=== PATIENT | male | born 1955 | race Caucasian/White ===

== ENCOUNTER 2024-09-25 18:01 | Inpatient (IN) | payer MEDICARE, SELFPAY ==
[2024-09-25] VITALS (17 sets, daily range): BP systolic 103–149; BP diastolic 45–76; PULSE 71–101; RESP 14–24; TEMP 36.6; O2SAT 89–97; BMI 18.2
--- NOTE | 2024-09-25 18:16 | CTR_ITS ---
PROCEDURE INFORMATION: Exam: CT Abdomen And Pelvis With Contrast Exam date and time: 09/25/2024 7:14 PM Age: 69 years old Clinical indication: Nausea and vomiting; Prior surgery; Surgery date: 6+ months; Surgery type: Colon x2 CA; Additional info: Nausea/vomiting, liver disease TECHNIQUE: Imaging protocol: Computed tomography of the abdomen and pelvis with contrast. Radiation optimization: All CT scans at this facility use at least one of these dose optimization techniques: automated exposure control; mA and/or kV adjustment per patient size (includes targeted exams where dose is matched to clinical indication); or iterative reconstruction. Contrast material: OMNIPAQUE 350; Contrast volume: 100 ml; Contrast route: INTRAVENOUS (IV); COMPARISON: CR (CHEST, ) 09/25/2024 6:18 PM RADIATION DOSE METRICS: Total DLP (mGy-cm): 1252.99 FINDINGS: Lungs: Consolidative airspace disease present in the left lower lobe. Patchy alveolar opacities present in the right lung base. Liver: The liver demonstrates capsular nodularity with hypertrophy of the caudate lobe. No definitive liver mass. Gallbladder and biliary ducts: The gallbladder is surgically absent. No intrahepatic biliary ductal dilatation. Pancreas: Normal. No ductal dilation. Spleen: The spleen is enlarged measuring 16 cm in length. Adrenal glands: Normal. No mass. Kidneys and ureters: Normal. No hydronephrosis. Stomach and bowel: Postsurgical changes from a subtotal colectomy. There are few scattered colon diverticula. There are multiple mildly dilated loops of small bowel without transition point. Appendix: No evidence of appendicitis. Intraperitoneal space: Unremarkable. No free air. No significant fluid collection. Vasculature: Splenorenal varices present. Scattered calcific plaque involves the abdominal aorta and iliac arteries. Lymph nodes: Unremarkable. No enlarged lymph nodes. Urinary bladder: Unremarkable as visualized. Reproductive: Radiation seeds present within the prostate. Bones/joints: Multilevel degenerative changes involve the spine. Soft tissues: Postsurgical changes from ventral hernia repair noted. Other findings: Image quality degraded by motion artifact. CT/CT abdomen pelvis w con* [id number] IMPRESSION: 1. There are multiple dilated loops of small bowel without transition point most compatible with an ileus/enteritis. 2. Hepatic cirrhosis with portal venous hypertension including splenomegaly and varices. 3. Bibasilar airspace disease concerning for pneumonia.
--- NOTE | 2024-09-25 18:16 | XRR_ITS ---
PROCEDURE INFORMATION: Exam: XR Chest Exam date and time: 09/25/2024 6:18 PM Age: 69 years old Clinical indication: Other: N/v; Additional info: Nausea/vomiting TECHNIQUE: Imaging protocol: Radiologic exam of the chest. Views: 1 view. COMPARISON: No relevant prior studies available. FINDINGS: Lungs: Unremarkable. No consolidation. Pleural spaces: Unremarkable. No pleural effusion. No pneumothorax. Heart/Mediastinum: Unremarkable. No cardiomegaly. Bones/joints: Unremarkable. XR/XR chest 1V portable [id number] IMPRESSION: No acute findings.
--- NOTE | 2024-09-25 18:19 | ED_ITS ---
HPI - Abdominal Pain 2 General: Chief Complaint: Nausea/Vomiting/Diarrhea Stated Complaint: vomitting Time Seen by Provider: 09/25/24 18:05 Source: patient and family Mode of arrival: wheelchair Limitations: no limitations History of Present Illness: Patient is a 69-year-old male with past medical history of diabetes and liver disease who presents to the emergency department with family due to sudden onset vomiting and diarrhea this morning. [id number] is primary historian at my time of examination, states that patient has a history of nonalcoholic liver cirrhosis as well as 2 different types of cancer, patient has gotten this way in the past and his ammonia has subsequently been elevated and he has required admission to the hospital. Family states that last time he was like this patient was in the hospital for 2 weeks. He has not been confused as he has been in the past, but has been falling. Normally he is ambulatory without assistance, arrives in a wheelchair as he is unable to walk. No reported cardiac history. No fevers, family states patient is at baseline mentation at this time. Patient had not been noting any abdominal pain, and there was no reports of coffee-ground emesis or hematemesis. No reported history of esophageal varices or variceal bleeding. No reports of chest pain, shortness of breath, head injury, sick contact exposure, coughing, or other symptoms at this time. Patient is alert and oriented to self and place, not to time which reportedly is baseline. MD elicited complaint: other (Nausea/vomiting/diarrhea) Pertinent past history: other (Liver cirrhosis, cancer) Onset (ago): hour(s) Pain Consistency: constant Exacerbating factors: nothing Relieving factors: nothing Associated Symptoms: Reports diarrhea, nausea and vomiting; Denies change in stool character, chills, coffee ground emesis, constipation, dysuria, fever(s), hematochezia, hematuria and hematemesis Review of Systems 2 General: Reports: 10 or more systems reviewed and unremarkable except in HPI and below Const: Denies: fever(s), chills, body aches or fatigue ENMT: Denies: throat pain Card: Denies: chest pain, palpitations or lightheadedness Resp: Denies: dyspnea, productive cough, wheezing or hemoptysis GI: Reports: nausea, vomiting and diarrhea; Denies: abdominal pain, hematemesis, coffee ground emesis, constipation, change in stool character or hematochezia : Denies: difficulty urinating, dysuria or hematuria Musc: Denies: neck pain or back pain Skin/Breast: Denies: rash Neuro: Reports: difficulty walking and frequent falls; Denies: headache(s), dizziness, confusion, behavioral changes, Slurred speech present or seizure-like activity Physical Exam 2 Const: COMMON NORMALS: no acute distress GENERAL APPEARANCE: cooperative ORIENTATION/CONSCIOUSNESS: Yes awake, Yes oriented to person and Yes oriented to place; not oriented to time OTHER: No jaundice HENMT: COMMON NORMALS: normocephalic, atraumatic, moist oral mucous membranes and oropharynx normal HEAD & SCALP: normocephalic and atraumatic Eye: COMMON NORMALS: Equal, round and reactive pupils present, EOMs intact bilaterally, conjunctivae normal and no scleral icterus CONJUNCTIVA: Yes conjunctivae normal PUPIL: Yes Equal, round and reactive pupils present Neck/C-Spine: COMMON NORMALS: full ROM and no meningeal signs Resp: COMMON NORMALS: normal respiratory effort, No retractions, No use of accessory muscles and clear to auscultation bilaterally EFFORT & INSPECTION: Yes able to speak in complete sentences AUSCULTATION: clear to auscultation bilaterally Cardio: COMMON NORMALS: regular rate, regular rhythm, No gallops present (Cardio), No murmurs present (Cardio), No rub (Cardio) and Peripheral pulses 2+ throughout RATE: regular rate RHYTHM: regular rhythm PERIPHERAL PULSES: Peripheral pulses 2+ throughout GI: COMMON NORMALS: non-tender INSPECTION: Yes central obesity A USCULTATION: Yes Hyperactive bowel sounds present OTHER: Midline postoperative scar from previous colectomy Extremity: COMMON NORMALS: full ROM, capillary refill normal and no joint enlargement NARRATIVE EXTREMITY EXAM: Chronic venous stasis changes bilaterally, no pedal edema. Wound to left great toe, acute Neuro: COMMON NORMALS: moves all extremities, no focal motor deficits and no sensory deficits noted SENSORIUM/ORIENTATION: Yes oriented to person, Yes oriented to place and No oriented to time MENINGEAL SIGNS: Yes no meningeal signs Course 2 Vital Signs: Vital signs: Vital Signs Temperature 97.8 F 09/25/24 18:05 Pulse Rate 71 09/25/24 18:05 MDM - Abdominal Pain Medical Decision Making Patient brought in by family for vomiting and diarrhea, family had stated history of hepatic encephalopathy requiring lengthy admission to the hospital as recent as last year. No jaundice or scleral icterus on exam, they reported history of nonalcoholic liver cirrhosis as well as colon cancer. Patient reported to be at baseline mentation, does not use oxygen at home regularly. Does have a history of diabetes. No fevers were reported. Head CT was normal. X-ray unremarkable. CT of abdomen pelvis showing signs of enteritis and potential signs of pneumonia. His SpO2 steadily dropped throughout ED stay, he was unable to maintain above 90% despite being on 6 L of oxygen, so was placed on BiPAP. His ammonia was normal, CBC unremarkable. PT PTT were normal. Lactic acid 2.5, was given a liter of fluids. Troponin initially was 20. He did have a history of DVT per family, is on blood thinners. Due to his hypoxia, spoke with hospitalist who agrees to accept the patient to the ICU on BiPAP. Discussed case with Dr. Tirado here in the ED. Lab Data 09/25/24 18:37 09/25/24 18:37 Labs/Radiology: Radiology Impressions Abdomen/Pelvis CT 09/25/24 18:16 IMPRESSION: 1. There are multiple dilated loops of small bowel without transition point most compatible with an ileus/enteritis. 2. Hepatic cirrhosis with portal venous hypertension including splenomegaly and varices. 3. Bibasilar airspace disease concerning for pneumonia. Chest X-Ray 09/25/24 18:16 IMPRESSION: No acute findings. Head CT 09/25/24 18:42 IMPRESSION: No acute intracranial abnormality. Laboratory Results WBC 7.79 10^3/uL (3.29-11.43) 09/25/24 18:37 RBC 4.59 10^6/uL (3.85-5.65) 09/25/24 18:37 Hgb 15.30 g/dL (11.27-16.99) 09/25/24 18:37 Hct 44.5 % (37-53) 09/25/24 18:37 MCV 96.9 fl (82-101) 09/25/24 18:37 MCH 33.3 pg (27-33) H 09/25/24 18:37 MCHC 34.4 g/dL (30-55) 09/25/24 18:37 RDW 14.7 % (12.1-15.1) 09/25/24 18:37 Plt Count 49 10^3/cmm (157-399) L 09/25/24 18:37 MPV 11.5 fL (7.4-10.4) H 09/25/24 18:37 Neut % (Auto) 85.8 % 09/25/24 18:37 Lymph % (Auto) 9.1 % 09/25/24 18:37 [place] % (Auto) 4.7 % 09/25/24 18:37 Eos % (Auto) 0.0 % 09/25/24 18:37 Baso % (Auto) 0.1 % 09/25/24 18:37 Neut # (Auto) 6.68 10^3/uL (1.8-7.7) 09/25/24 18:37 Lymph # (Auto) 0.7 10^3/uL (0.8-4.8) L 09/25/24 18:37 [place] # (Auto) 0.4 10^3/uL (0.2-0.9) 09/25/24 18:37 Eos # (Auto) 0.0 10^3/uL (0.0-0.8) 09/25/24 18:37 Baso # (Auto) 0.0 10^3/uL (0.0-0.1) 09/25/24 18:37 Nucleated RBC % (auto) 0 % 09/25/24 18:37 Nucleated RBCs # 0.0 /100WBC 09/25/24 18:37 PT 16.00 SECONDS (12.1-14.9) H 09/25/24 18:37 INR 1.20 (0.8-1.2) 09/25/24 18:37 APTT 34.4 SECONDS (23.9-36.7) 09/25/24 18:37 Sodium 141 mmol/L (136-145) 09/25/24 18:37 Potassium 4.4 mmol/L (3.5-5.1) 09/25/24 18:37 Chloride 102 mmol/L (98-107) 09/25/24 18:37 Carbon Dioxide 25 mmol/L (22-29) 09/25/24 18:37 Anion Gap 18.4 (5-19) 09/25/24 18:37 BUN 31 mg/dL (8-23) H 09/25/24 18:37 Creatinine 1.1 mg/dL (0.7-1.2) 09/25/24 18:37 GFR Calculation Not Reportable 09/25/24 18:37 Glucose 172 mg/dL (65-115) H 09/25/24 18:37 Calculated Osmolality 303 mOsm/kg (285-295) H 09/25/24 18:37 Lactic Acid 2.5 mmol/L (0.5-2.2) H 09/25/24 18:37 Calcium 10.2 mg/dL (8.5-10.5) 09/25/24 18:37 Total Bilirubin 4.5 mg/dL (0.15-1.2) H 09/25/24 18:37 AST 35 U/L (0-40) 09/25/24 18:37 ALT 19 U/L (0-41) 09/25/24 18:37 Alkaline Phosphatase 108 U/L (40-130) 09/25/24 18:37 Ammonia 48 umol/L (16-60) 09/25/24 18:37 Troponin T Baseline 20 ng/L (0-15) H 09/25/24 18:37 Total Protein 6.8 g/dL (6.6-8.7) 09/25/24 18:37 Albumin 4.4 g/dL (3.5-5.2) 09/25/24 18:37 Globulin 2.4 g/dL (1.3-4.6) 09/25/24 18:37 Lipase 22 U/L (13-60) 09/25/24 18:37 Coronavirus (PCR) Negative (Negative) 09/25/24 19:41 Influenza A (PCR) Negative (Negative) 09/25/24 19:41 Influenza Type B (PCR) Negative (Negative) 09/25/24 19:41 RSV (PCR) Negative (Negative) 09/25/24 19:41 All radiology interpretation(s) finalized by discharge EKG Data EKG 1: I personally reviewed and interpreted this EKG as follows: EKG interpretation date: 09/25/24 EKG interpretation time: 18:30 Prior EKG tracings: available for review Interpretation: 1830: NSR. Rate 69. First degree AV block. No STEMI. No previous for comparison. Reviewed with physician. Discharge Plan Discharge Patient Disposition: Admitted As Inpatient Clinical Impression: Hypoxia, Pneumonia, Enteritis Condition: Stable Coding Level of Care Code ED [employer] [facility]
--- NOTE | 2024-09-25 18:30 | ECG_ITS ---
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 Measurements Intervals [place] Rate: 69 P: 56 RI: 225 QRS: 71 QRSD: 91 T: 26 QT: 393 QTc: 422 Interpretive Statements SINUS RHYTHM WITH FIRST DEGREE AV BLOCK NONSPECIFIC ST & T-WAVE ABNORMALITY No previous ECG available for comparison Electronically Signed On 09-29-2024 23:17:22 [employer] by Diego Ingram M.D. [id number]
--- NOTE | 2024-09-25 18:42 | CTR_ITS ---
PROCEDURE INFORMATION: Exam: CT Head Without Contrast Exam date and time: 09/25/2024 7:09 PM Age: 69 years old Clinical indication: Weakness, extremity; Bilateral; Additional info: AMS TECHNIQUE: Imaging protocol: Computed tomography of the head without contrast. Radiation optimization: All CT scans at this facility use at least one of these dose optimization techniques: automated exposure control; mA and/or kV adjustment per patient size (includes targeted exams where dose is matched to clinical indication); or iterative reconstruction. COMPARISON: No relevant prior studies available. RADIATION DOSE METRICS: Total DLP (mGy-cm): 2554.09 FINDINGS: Brain: Periventricular white matter changes likely related to chronic ischemic small vessel disease. No intracranial mass, hemorrhage or recent infarct. Brain atrophy present. No midline shift or mass effect. Cerebral ventricles: No ventriculomegaly. Paranasal sinuses: Visualized sinuses are unremarkable. No fluid levels. Mastoid air cells: Visualized mastoid air cells are well aerated. Bones: Unremarkable. No acute fracture. Soft tissues: Unremarkable. CT/CT head wo con* [id number] IMPRESSION: No acute intracranial abnormality.
[2024-09-25 18:45] LABS: Basophils % 0.1 %; Hematocrit 44.5 % (37-53); Lymphocytes # 0.7 10^3/uL (0.8-4.8); Lymphocytes % 9.1 %; Mean Corpuscular HGB Conc 34.4 g/dL (30-55); Mean Corpuscular Hemoglobin 33.3 pg (27-33); Mean Corpuscular Volume 96.9 fl (82-101); Mean Platelet Volume 11.5 fL (7.4-10.4); Monocytes # 0.4 10^3/uL (0.2-0.9); Monocytes % 4.7 %; Neutrophils # 6.68 10^3/uL (1.8-7.7); Neutrophils % 85.8 %; Nucleated Red Blood Cells % 0 %; Platelet Count 49 10^3/cmm (157-399); Red Blood Count 4.59 10^6/uL (3.85-5.65); Red Cell Distribution Width 14.7 % (12.1-15.1); White Blood Count 7.79 10^3/uL (3.29-11.43)
[2024-09-25] MEDS: ondansetron 2 mg/ML SDV 2 mL 4 MG IVP (18:46)
[2024-09-25 18:58] LABS: Partial Thromboplastin Time 34.4 SECONDS (23.9-36.7)
[2024-09-25 19:00] LABS: Troponin(5th) Baseline 20 ng/L (0-15)
[2024-09-25 19:02] LABS: Alanine Aminotransferase 19 U/L (0-41); Albumin Level 4.4 g/dL (3.5-5.2); Alkaline Phosphatase 108 U/L (40-130); Anion Gap 18.4 (5-19); Aspartate Amino Transferase 35 U/L (0-40); Blood Urea Nitrogen 31 mg/dL (8-23); Calcium 10.2 mg/dL (8.5-10.5); Carbon Dioxide 25 mmol/L (22-29); Chloride 102 mmol/L (98-107); Creatinine Clr Calc Pharmacy 59.2764; Globulin 2.4 g/dL (1.3-4.6); Glucose 172 mg/dL (65-115); Lactic Sepsis W/Reflex 2.5 mmol/L (0.5-2.2); Lipase 22 U/L (13-60); Osmolality Calculated 303 mOsm/kg (285-295); Potassium 4.4 mmol/L (3.5-5.1); Sodium 141 mmol/L (136-145); Total Bilirubin 4.5 mg/dL (0.15-1.2); Total Protein 6.8 g/dL (6.6-8.7)
[2024-09-25 19:05] LABS: Ammonia 48 umol/L (16-60)
[2024-09-25] MEDS: iohexol 350 mg/mL 500 mL Btl (per mL) IV (19:19)
[2024-09-25] MEDS: sodium chloride 0.9% 1,000 ML 999 ML IV (19:43)
--- NOTE | 2024-09-25 20:17 | ECG_ITS ---
[facility] Test Date: 2024-09-25 Pat Name: Jeremy Melgar Department: Room: Gender: Male Director Of Diversity And Inclusion: : 1955 Requested By: Rogelio Salcido Order Number: [id number] Adithya MD: Diego Ingram M.D. Measurements Intervals [place] Rate: 94 P: 87 PA: 222 QRS: 91 QRSD: 100 T: 65 QT: 342 QTc: 429 Interpretive Statements SINUS RHYTHM WITH FIRST DEGREE AV BLOCK BORDERLINE RIGHT AXIS DEVIATION [QRS AXIS > 90] Compared to ECG 09/25/2024 18:30:40 T-wave abnormality no longer present Electronically Signed On 09-29-2024 23:35:48 [employer]OTH L[employer]INATING SUPERVISOR by Diego Ingram M.D. [id number]
[2024-09-25 20:28] LABS: Reflex Lactate Order REFLEX LACTIC ORDERD
[2024-09-25 20:30] LABS: Covid PCR NEGATIVE (Negative); Influenza A NEGATIVE (Negative); Influenza B NEGATIVE (Negative); Respiratory Syncytial Virus Ce NEGATIVE (Negative)
--- NOTE | 2024-09-25 20:55 | P.HP_ITS ---
Providers/Chief Complaint 2 Chief Complaint: vomitting History of Present Illness History was obtained primarily from ED signout and chart review b/c the patient was confused Jeremy Melgar is a 69 yo man w/ colon cancer, hx of 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 hepatic encephalopathy who was brought to the ED on 09/25/2024 by his son and [id number] for 1 day of intractable nausea vomiting, diarrhea. Per ED signout, the patient's family members brought the patient to the ED, because he had a similar presentation of persistent vomiting approximately a few months ago, and he became hospitalized at [facility] in [place], [place] for hepatic encephalopathy. According to the ED staff signout, when the patient arrived in the ED, his vital signs were within normal limits. He subsequently developed tachycardia of 101bpm, tachypnea to 24 and became hypoxic to the 87% such that he was requiring 6L NC. His labs were significant for lactic acid of 2.5, T. bili of 4.5, but AST, ALT and alk phos that were all within normal limits. CT head was done that was negative for any acute abnormalities. A CT abdomen/pelvis was done that showed concern for an ileus/enteritis, decompensated liver cirrhosis with portal venous hypertension, splenomegaly and varices, and bibasilar airspace disease concerning for pneumonia. A CXR was done that showed b/l R>L bibasilar airspace disease concerning for pneumonia. With persistent hypoxia, the patient was placed on BiPAP and admitted to the ICU. He is able to tell me his name at that he is at [facility]. When asked the month and year. He tells me that he believes that it is Sep 2022. He tells me that he came to the ED b/c he fell as a result of having an upset stomach. When queried further about his upset stomach, he is unable to tell me. After some time lapsed, he tells me that his son was able to help him get off the floor. He was given 1L NS bolus, 1g Ceftriaxone, Azithromycin, Review of Systems 2 General: Reports: ROS unobtainable due to mental status Medications/Allergies Home Medications Medication Instructions Recorded Confirmed Last Taken Type Lamisil 1 applic topical BID PRN fungal 09/26/24 09/26/24 Unknown History infection to feet apixaban 5 mg tablet (Eliquis) 5 mg PO BID 09/26/24 09/26/24 Unknown History furosemide 40 mg tablet 40 mg PO DAILY 09/26/24 09/26/24 Unknown History gabapentin 600 mg tablet 600 mg PO TID 09/26/24 09/26/24 Unknown History lactulose 10 gram/15 mL oral 15 ml PO BID 09/26/24 09/26/24 Unknown History solution metformin 500 mg tablet 500 mg PO BID 09/26/24 09/26/24 Unknown History multivitamin 1 tab PO DAILY 09/26/24 09/26/24 Unknown History nadolol 20 mg tablet 20 mg PO DAILY 09/26/24 09/26/24 Unknown History pantoprazole 40 mg tablet,delayed 40 mg PO BID 09/26/24 09/26/24 Unknown History release rifaximin 550 mg PO BID 09/26/24 09/26/24 Unknown History spironolactone 50 mg tablet 50 mg PO DAILY 09/26/24 09/26/24 Unknown History tamsulosin 0.4 mg capsule 0.4 mg PO DAILY 09/26/24 09/26/24 Unknown History trazodone 100 mg tablet 100 mg PO BEDTIME 09/26/24 09/26/24 Unknown History triamcinolone acetonide 0.1 % 1 applic topical TID PRN Itching 09/26/24 09/26/24 Unknown History topical cream zolpidem 10 mg tablet 10 mg PO BEDTIME PRN Sleep 09/26/24 09/26/24 Unknown History Allergies Allergy/AdvReac Type Severity Reaction Status Date / Time No Known Allergies Allergy Verified 09/25/24 22:09 Vitals/I&O/Wt Last Vital Signs Temp 97.8 F 09/25/24 18:05 Pulse 71 09/25/24 18:05 Weight last 48 hrs Weight 68.039 kg Physical Exam 2 Const: GENERAL APPEARANCE: cooperative and comfortable O RIENTATION/CONSCIOUSNESS: Yes awake, Yes oriented to person and Yes oriented to place; not oriented to time HENMT: HEAD & SCALP: normocephalic and atraumatic NOSE: Normal external nose present EXTERNAL EAR: Yes external ears normal MOUTH: Normal oral and palatal mucosa present THROAT: posterior oropharynx normal Eye: OTHER: PERRL, EOMI, normal conjunctiva b/l Neck/C-Spine: GENERAL: Yes normal visual inspection and Yes trachea midline THYROID: Thyroid normal CAROTIDS: No bruit CERVICAL SPINE: Yes cervical ROM normal Lymph: OTHER: No cervical or supraclavicular LAD. Resp: OTHER: Decreased breath sounds in the bibasilar lung bases. No wheezes, rhonchi. Cardio: OTHER: RRR, no m/r/g or clicks, 2+ radial & DP pulses. No carotid bruits appreciated. GI: OTHER: BS+, NT, ND, no guarding, no rigidity, no rebound tenderness, no hepatosplenomegaly. Extremity: GENERAL: No cyanosis, No deformity and No edema Neuro: STEPHAN COMA SCALE: document GCS findings [place] coma scale eye opening: Spontaneous [place] coma scale verbal response: Confused [place] coma scale motor response: Obey commands Stephan coma scale total score: 14 Psych: OTHER: Unable to assess given mental status. Skin: GENERAL SKIN EXAM: no rashes or lesions noted Data 09/25/24 18:37 09/25/24 18:37 A&P Assessment and plan (1) Severe sepsis: (2) Enteritis: (3) Pneumonia: Qualifiers: Laterality: bilateral Lung location: lower lobe of lung Pneumonia type: due to unspecified organism Qualified Code(s): J18.9 - Pneumonia, unspecified organism (4) Acute hypoxic respiratory failure: Plan Jeremy Melgar is a 69 yo man w/ colon cancer, hx of 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 hepatic encephalopathy who was brought to the ED on 09/25/2024 by his son and [id number] for 1 day of intractable nausea vomiting, diarrhea. # Acute hypoxic respiratory failure #Severe Sepsis: Likely due to his enteritis and bibasilar pneumonia - F/u BCx. Give 1L of NS at 100cc/hr. #Bibasilar pneumonia - Possibly due to Aspiration from emesis. - Started Zosyn and Azithromycin. - Consider swallow study #Intractable N/V diarrhea #Ileus/Enteritis - Antiemetics. - If further diarrhea, consider sending GI infectious work up #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 hepatic encephalopathy - Monitor Ammonia level #hx of colon cancer #non-IDDM2: Low-dose sliding scale insulin with meals ordered. Medium dose SSI ordered. #I do not know why he is on Apixaban. DVT ppx: Lovenox GI ppx: PPI Code Status: I don't know. His son is ACE, per ICU nurse. Attestations 2 Medical Necessity Statement*: Patient needs to remain hospitalized for greater than 2 midnights for his severe sepsis, bibasilar pneumonia, intractable nausea vomiting diarrhea, with concern for ileus/enteritis, in the setting of his decompensated liver cirrhosis. Patient is at high risk of if discharged prematurely. Diagnoses Severe sepsis A41.9; R65.20 Enteritis K52.9 Pneumonia J18.9 Laterality: bilateral Lung location: lower lobe of lung Pneumonia type: due to unspecified organism Acute hypoxic respiratory failure J96.01
--- NOTE | 2024-09-25 21:03 | XRR_ITS ---
PROCEDURE INFORMATION: Exam: XR Chest Exam date and time: 09/25/2024 9:14 PM Age: 69 years old Clinical indication: Shortness of breath; Additional info: SOB TECHNIQUE: Imaging protocol: Radiologic exam of the chest. Views: 1 view. COMPARISON: CR (CHEST, ) 09/25/2024 6:18 PM FINDINGS: Lungs: Patchy bibasilar airspace disease, right greater than left. Otherwise, the lungs are clear. Pleural spaces: Unremarkable. No pleural effusion. No pneumothorax. Heart/Mediastinum: Stable cardiomegaly. Bones/joints: Unremarkable. XR/XR chest 1V portable [id number] IMPRESSION: Patchy bibasilar airspace disease, right worse than left concerning for pneumonia.
[2024-09-25 21:14] LABS: ABG PCO2 34.9 mmHg (35-45); ABG PH Result 7.38 (7.35-7.45); Alveolar-Arterial Oxygen Gradi 31.3 mmHg (5-10); Arterial Blood Gas Hematocrit 47.2 % (42-52); Blood Gas Allen Test Pos; Blood Gas Sample Site Radial, left; Blood Gas Sample Type Arterial; HCO3 ABG 20.4 mmol/L (22-26); HGB O2 Sat 93.7 % (95-100); Ionized Calcium Level - ABG 1.2 mmol/L (1.1-1.4); Methemoglobin < 0.0 % (0.4-1.5); Oxygen Device BIPAP; Oxygen Saturation ABG 95.4; PO2 ABG 77.1 mmHg (80.0-100.0); PO2 FiO2 Ratio Arterial Blood 154; Potassium Level - ABG 4.3 mmol/L (3.5-5.0); Total Hemoglobin 15.4 g/dL (14-18)
[2024-09-25 21:21] LABS: Troponin 5 2HR 19.97 ng/L (0-15)
[2024-09-25 21:23] LABS: Troponin 5 2HR Delta -0.03 ABS# (0-10)
[2024-09-25 21:35] LABS: NT Pro B Type Natriuretic Pept 534 pg/mL (0-125)
[2024-09-25] MEDS: morphine 4 mg/mL SDV 1 mL 2 MG IVP (21:51)
[2024-09-25] MEDS: cefTRIAXone 1,000 mg SDV 1000 MG IVP (21:54)
[2024-09-25] MEDS: AZITHROMYCIN ADD-Vantage 500 MG in 0.9% NaCl ADD-Vantage 250 ML 250 MG IV (21:55)
[2024-09-25 22:09] LABS: Bilirubin Urine 1+ (Negative); Blood Urine Negative (Negative); Glucose Urine UA Negative (Normal); Ketones Urine Negative (Negative); Leukocyte Esterase Urine Trace (Negative); Nitrate Urine Negative (Negative); Protein Urine Negative (Negative); Urine Appearance Clear (CLEAR)
[2024-09-25 22:14] LABS: Add Urine Microscopic? YES; Bacteria Urine None Seen /hpf; Hyaline Casts Urine 14.06 /lpf; RBC Urine 0-2 /hpf (0-2); Squamous Epithelial Cell Urine 0-5 /hpf (0-5); WBC Urine 0-5 /hpf (0-5)
[2024-09-25 22:28] LABS: Specific Gravity, Urine 1.053 (1.005-1.030); UA Slide Review UA Slide Review Perf; Urine Color Dark Yellow (Yellow)
[2024-09-25 22:33] LABS: Lactic Acid level (Lactate) 2.7 mmol/L (0.5-2.2)
[2024-09-26] VITALS (209 sets, daily range): BP systolic 88–151; BP diastolic 41–98; PULSE 62–86; RESP 12–24; TEMP 36.6–38.1; O2SAT 67–95; BMI 27.0
--- NOTE | 2024-09-26 00:17 | ECG_ITS ---
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 Measurements Intervals [place] Rate: 71 P: 0 VT: 0 QRS: 58 QRSD: 96 T: 14 QT: 384 QTc: 418 Interpretive Statements SUPRAVENTRICULAR RHYTHM NONSPECIFIC T-WAVE ABNORMALITY Compared to ECG 09/25/2024 20:57:12 Supraventricular rhythm now present T-wave abnormality now present Sinus rhythm no longer present First degree AV block no longer present Electronically Signed On 09-29-2024 23:34:59 [employer] by Diego Ingram M.D. [id number]
[2024-09-26 00:59] LABS: Troponin 5 6HR 21.63 ng/L (0-15); Troponin 5 6HR Delta 1.63 ng/L (0-12)
[2024-09-26] MEDS: piperacillin-tazobactam 3.375 GM in sodium chloride 0.9% (plus) 50 ML IV ×3 (08:20→23:57)
[2024-09-26] MEDS: enoxaparin 40 mg/0.4 mL Syringe SUBCUT (08:20)
[2024-09-26] MEDS: pantoprazole 40 mg SDV IVP ×2 (08:20→21:41)
[2024-09-26] MEDS: sodium chloride 0.9% 1,000 ML 100 ML IV (08:22)
[2024-09-26] MEDS: gabapentin 300 mg Capsule 600 MG PO ×3 (09:24→21:38)
[2024-09-26] MEDS: tamsulosin 0.4 mg Capsule PO (09:24)
[2024-09-26] MEDS: lactulose oral liq 20 gm/30 mL UDC 10 GM PO ×2 (09:25→17:36)
[2024-09-26 10:43] LABS: Glucose Point of Care 245 mg/dL (70-110)
[2024-09-26 10:52] LABS: Basophils % 0.4 %; Eosinophils % 0.4 %; Hematocrit 39.4 % (37-53); Lymphocytes # 0.7 10^3/uL (0.8-4.8); Lymphocytes % 13.5 %; Mean Corpuscular HGB Conc 33.8 g/dL (30-55); Mean Corpuscular Hemoglobin 33.7 pg (27-33); Mean Corpuscular Volume 99.7 fl (82-101); Mean Platelet Volume 12.9 fL (7.4-10.4); Monocytes # 0.2 10^3/uL (0.2-0.9); Monocytes % 3.1 %; Neutrophils % 82.2 %; Nucleated Red Blood Cells % 0 %; Red Blood Count 3.95 10^6/uL (3.85-5.65); White Blood Count 5.47 10^3/uL (3.29-11.43)
[2024-09-26 10:54] LABS: INR 1.36 (0.8-1.2)
[2024-09-26 10:55] LABS: Partial Thromboplastin Time 41.9 SECONDS (23.9-36.7)
[2024-09-26 10:58] LABS: Alanine Aminotransferase 15 U/L (0-41); Albumin Level 3.7 g/dL (3.5-5.2); Alkaline Phosphatase 76 U/L (40-130); Anion Gap 17.9 (5-19); Aspartate Amino Transferase 28 U/L (0-40); Blood Urea Nitrogen 32 mg/dL (8-23); Calcium 8.9 mg/dL (8.5-10.5); Carbon Dioxide 20 mmol/L (22-29); Chloride 103 mmol/L (98-107); Creatinine Clr Calc Pharmacy 90.9075; Globulin 2.2 g/dL (1.3-4.6); Glucose 216 mg/dL (65-115); Magnesium 1.5 mg/dL (1.7-2.3); Osmolality Calculated 297 mOsm/kg (285-295); Phosphorus 2.7 mg/dL (2.5-4.5); Potassium 3.9 mmol/L (3.5-5.1); Sodium 137 mmol/L (136-145); Total Bilirubin 2.8 mg/dL (0.15-1.2); Total Protein 5.9 g/dL (6.6-8.7)
[2024-09-26 10:58] LABS: Ammonia 39 umol/L (16-60)
[2024-09-26 11:04] LABS: Lactate (Lactic Acid level) 4.2 mmol/L (0.5-2.2)
[2024-09-26 11:11] LABS: Platelet Count 29 10^3/cmm (157-399)
[2024-09-26 11:18] LABS: Slide Review Slide Review Perform
--- NOTE | 2024-09-26 11:38 | US_ITS ---
WS: [id number] Ultrasound abdomen limited INDICATION: Ascites TECHNIQUE: Ultrasound abdomen limited FINDINGS: Four-quadrant ultrasound. No significant ascites. US/US abdomen lmt fluid [id number] IMPRESSION: No significant ascites.
[2024-09-26 12:05] LABS: C Reactive Protein 69.9 mg/L (0.0-4.9)
[2024-09-26] MEDS: vancomycin 1,500 MG/300 ML PIGGYBACK 200 MG IV ×2 (12:52→12:53)
[2024-09-26] MEDS: insulin lispro 100 unit/1 mL SUBCUT ×2 (12:53→21:41)
--- NOTE | 2024-09-26 15:16 | P.PN_ITS ---
Subjective 2 Subjective: Patient was seen this morning, patient's son is at bedside he is alert to person, to place, not to time, son feels that his mentation overall has improved, but continues to have episodes of confusion, cannot recognize son at bedside knows his address, but does not remember the date or the time Vitals/I&O/Wt Last Vital Signs Temp 98.8 F 09/26/24 12:00 Pulse 73 09/26/24 14:15 Resp 18 09/26/24 14:15 BP 108/52 09/26/24 14:15 Pulse Ox 95 09/26/24 12:40 O2 Del Method Nasal Cannula 09/26/24 08:37 O2 Flow Rate 3.5 09/26/24 08:37 FiO2 40 09/26/24 02:47 09/26/24 09/26/24 09/26/24 06:59 14:59 22:59 Intake Total 250 / 1250 650 / 650 Balance 250 / 1250 650 / 650 Weight last 48 hrs Weight 103.5 kg Weight 68.039 kg Physical Exam 2 Const: COMMON NORMALS: no acute distress EXAM LIMITATIONS: altered mental status ORIENTATION/CONSCIOUSNESS: Yes awake, Yes oriented to person, Yes oriented to place and Yes confused; not oriented to time Neck/C-Spine: COMMON NORMALS: no JVD Resp: COMMON NORMALS: normal respiratory effort, No retractions, No use of accessory muscles and clear to auscultation bilaterally AUSCULTATION: clear to auscultation bilaterally Cardio: COMMON NORMALS: no JVD, regular rate, regular rhythm, S1 normal heart sound present and S2 normal heart sound present RATE: regular rate RHYTHM: regular rhythm HEART SOUNDS: S1 normal heart sound present and S2 normal heart sound present GI: COMMON NORMALS: Normal to inspection, nondistended, normoactive bowel sounds present and non-tender Extremity: COMMON NORMALS: no calf tenderness and no pedal edema Neuro: SENSORIUM/ORIENTATION: Yes oriented to person, Yes oriented to place and No oriented to time Urinary Catheter Management: Ramey: Cath Placed During This Visit: yes Urinary Catheter Date of Insertion: 09/26/24 Urinary Catheter Time of Insertion: 09:29 Sepsis: Is patient septic: Yes Focused sepsis exam performed: Yes F ocused sepsis exam: DP PT pulses palpable, cap refill greater than 2 seconds, no mottling Date exam was performed: 09/26/24 Time exam was performed: 09:00 Data 09/26/24 10:22 09/26/24 10:22 Micro: Microbiology 09/25/24 22:06 Blood Culture - Preliminary Blood SPECIMEN COLLECTED 09/25/24 22:00 Blood Culture - Preliminary Blood SPECIMEN COLLECTED A&P Assessment and plan (1) Severe sepsis: (2) Enteritis: (3) Pneumonia: Qualifiers: Laterality: bilateral Lung location: lower lobe of lung Pneumonia type: due to unspecified organism Qualified Code(s): J18.9 - Pneumonia, unspecified organism (4) Acute hypoxic respiratory failure: Laurent Melgar is a 69 yo man w/ colon cancer, 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 # Acute hypoxic respiratory failure -Secondary to pneumonia, highly suspicious for aspiration pneumonia -Requiring BiPAP, now on 6 L, Plan -Dysphagia level 6 diet mildly thickened -Aspiration precautions -Continue vancomycin, Zosyn, azithromycin -Monitor respiratory status closely -Sputum culture -Blood culture -Urine culture -Stool studies # Enteritis -Complaints of diarrhea -Had chronic diarrhea also after his colon surgery -Stool studies #Severe Sepsis: Bibasilar pneumonia, concerns for enteritis -Sepsis features met given lactic acidosis, respiratory failure, elevated CRP, Pro-Ernesto #Intractable N/V #Lactic acidosis #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 hepatic encephalopathy - Monitor Ammonia level # Thrombocytopenia -Avoid anticoagulant therapy -Monitor #hx of colon cancer #non-IDDM2: -Low-dose sliding scale insulin with meals ordered Apixaban,will need to do med rec DVT ppx: Apixaban GI ppx: PPI Code Status: full code Attestations 2 Medical Necessity Statement*: patient patient requires hospitalization for acute hypoxic respiratory failure, pneumonia, enteritis, sepsis Diagnoses Severe sepsis A41.9; R65.20 Enteritis K52.9 Pneumonia J18.9 Laterality: bilateral Lung location: lower lobe of lung Pneumonia type: due to unspecified organism Acute hypoxic respiratory failure J96.01
--- NOTE | 2024-09-26 15:52 | PC.OT ---
OT EVALUATION ORDERS RECEIVED. PATIENT SLEEPING VERY SOUNDLY. WILL ATTEMPT AGAIN TOMORROW.
[2024-09-26] MEDS: ipratropium-albuterol 3 mL Neb INHALATION ×2 (15:57→19:29)
[2024-09-26 17:29] LABS: Glucose Point of Care 119 mg/dL (70-110)
[2024-09-26] MEDS: budesonide 0.5 mg/2 mL Neb INHALATION (19:29)
[2024-09-26 20:32] LABS: Anion Gap 14.2 (5-19); Blood Urea Nitrogen 33 mg/dL (8-23); Calcium 8.5 mg/dL (8.5-10.5); Carbon Dioxide 22 mmol/L (22-29); Chloride 104 mmol/L (98-107); Creatinine Clr Calc Pharmacy 75.7563; Glucose 203 mg/dL (65-115); Osmolality Calculated 295 mOsm/kg (285-295); Potassium 4.2 mmol/L (3.5-5.1); Sodium 136 mmol/L (136-145)
[2024-09-26 20:55] LABS: Glucose Point of Care 197 mg/dL (70-110)
[2024-09-26] MEDS: trazodone 100 mg Tablet PO (21:40)
[2024-09-26] MEDS: AZITHROMYCIN ADD-Vantage 500 MG in 0.9% NaCl ADD-Vantage 250 ML 250 MG IV (21:51)
[2024-09-26] MEDS: vancomycin 1,750 MG/350 ML PIGGYBACK 175 MG IV (23:31)
[2024-09-27] VITALS (65 sets, daily range): BP systolic 91–176; BP diastolic 43–87; PULSE 56–105; RESP 13–27; TEMP 36.6–37.9; O2SAT 85–95; BMI 27.9
[2024-09-27] MEDS: ipratropium-albuterol 3 mL Neb INHALATION ×4 (01:01→20:58)
[2024-09-27 04:55] LABS: Alanine Aminotransferase 14 U/L (0-41); Albumin Level 3.1 g/dL (3.5-5.2); Alkaline Phosphatase 71 U/L (40-130); Anion Gap 15.8 (5-19); Aspartate Amino Transferase 31 U/L (0-40); Blood Urea Nitrogen 31 mg/dL (8-23); Calcium 8.5 mg/dL (8.5-10.5); Carbon Dioxide 18 mmol/L (22-29); Chloride 106 mmol/L (98-107); Creatinine Clr Calc Pharmacy 92.2492; Globulin 2.3 g/dL (1.3-4.6); Glucose 104 mg/dL (65-115); Magnesium 1.6 mg/dL (1.7-2.3); Osmolality Calculated 289 mOsm/kg (285-295); Phosphorus 2.2 mg/dL (2.5-4.5); Potassium 3.8 mmol/L (3.5-5.1); Sodium 136 mmol/L (136-145); Total Bilirubin 2.7 mg/dL (0.15-1.2); Total Protein 5.4 g/dL (6.6-8.7)
[2024-09-27 04:57] LABS: Ammonia 38 umol/L (16-60)
[2024-09-27 05:28] LABS: C Reactive Protein 104.1 mg/L (0.0-4.9)
[2024-09-27 05:40] LABS: Basophils % 0.4 %; Eosinophils # 0.1 10^3/uL (0.0-0.8); Eosinophils % 2.7 %; Lymphocytes # 0.6 10^3/uL (0.8-4.8); Lymphocytes % 21.7 %; Mean Corpuscular HGB Conc 33.6 g/dL (30-55); Mean Corpuscular Hemoglobin 34.4 pg (27-33); Mean Corpuscular Volume 102.2 fl (82-101); Mean Platelet Volume 11.9 fL (7.4-10.4); Monocytes # 0.2 10^3/uL (0.2-0.9); Monocytes % 5.7 %; Neutrophils % 68.4 %; Nucleated Red Blood Cells % 0 %; Platelet Count 34 10^3/cmm (157-399); Red Blood Count 3.23 10^6/uL (3.85-5.65); Red Cell Distribution Width 14.7 % (12.1-15.1); White Blood Count 2.63 10^3/uL (3.29-11.43)
[2024-09-27 06:08] LABS: Lactate (Lactic Acid level) 1.5 mmol/L (0.5-2.2)
--- NOTE | 2024-09-27 07:22 | PHA.VACGOAL ---
Vancomycin Goal - Goal Vancomycin Goal:: 15-20 mg/L Vancomycin Indication:: Pneumonia (Sepsis) - Therapy Current therapy:: Azithromycin, Pip/Tazo Day of therpy:: Day [2]of [] . Actual body weight (kg): 107 kg - Data Labs: WBC 2.63 10^3/uL (3.29-11.43) L 09/27/24 05:03 RBC 3.23 10^6/uL (3.85-5.65) L 09/27/24 05:03 Hgb 11.10 g/dL (11.27-16.99) L 09/27/24 05:03 Hct 33.0 % (37-53) L 09/27/24 05:03 MCV 102.2 fl (82-101) H 09/27/24 05:03 MCH 34.4 pg (27-33) H 09/27/24 05:03 MCHC 33.6 g/dL (30-55) 09/27/24 05:03 RDW 14.7 % (12.1-15.1) 09/27/24 05:03 Sodium 136 mmol/L (136-145) 09/27/24 04:21 Potassium 3.8 mmol/L (3.5-5.1) 09/27/24 04:21 Chloride 106 mmol/L (98-107) 09/27/24 04:21 Carbon Dioxide 18 mmol/L (22-29) L 09/27/24 04:21 Anion Gap 15.8 (5-19) 09/27/24 04:21 BUN 31 mg/dL (8-23) H 09/27/24 04:21 Creatinine 1.0 mg/dL (0.7-1.2) 09/27/24 04:21 GFR Calculation Not Reportable 09/27/24 04:21 Treatment plan:: new consult Regimen:: New start vancomycin for pneumonia/sepsis. No history of vancomycin found. Received 3000 mg load dose. Started on maintenance dose of 1750 mg q12h based on population based pharmacokinetic nomogram.
[2024-09-27] MEDS: piperacillin-tazobactam 3.375 GM in sodium chloride 0.9% (plus) 50 ML IV ×2 (07:38→16:44)
[2024-09-27] MEDS: pantoprazole 40 mg SDV IVP ×2 (07:38→21:44)
[2024-09-27 07:47] LABS: Glucose Point of Care 102 mg/dL (70-110)
[2024-09-27] MEDS: lactulose oral liq 20 gm/30 mL UDC 10 GM PO ×2 (07:57→17:40)
[2024-09-27] MEDS: tamsulosin 0.4 mg Capsule PO (07:58)
[2024-09-27] MEDS: gabapentin 300 mg Capsule 600 MG PO ×3 (07:58→21:54)
[2024-09-27] MEDS: budesonide 0.5 mg/2 mL Neb INHALATION ×2 (08:15→20:58)
--- NOTE | 2024-09-27 09:10 | PC.NURSE ---
son at bedside am breakfast served , good appetite confusion remains bed alarm on at this time
[2024-09-27 11:23] LABS: Glucose Point of Care 151 mg/dL (70-110)
[2024-09-27] MEDS: insulin lispro 100 unit/1 mL SUBCUT ×3 (11:59→21:44)
[2024-09-27] MEDS: vancomycin 1,750 MG/350 ML PIGGYBACK 300 MG IV (12:00)
[2024-09-27 12:03] LABS: C.Diff PCR (Lab) POSITIVE (Negative)
[2024-09-27] MEDS: vancomycin 125 mg Capsule PO ×2 (13:05→17:41)
--- NOTE | 2024-09-27 16:24 | P.PN_ITS ---
Subjective 2 Subjective: Patient was seen this morning, son is at bedside he is alert to person, to place, somewhat to time, he can follow commands denies any fevers, chills, no cough, no abdominal pain does report weakness Vitals/I&O/Wt Last Vital Signs Temp 97.8 F 09/27/24 14:00 Pulse 78 09/27/24 14:00 Resp 20 H 09/27/24 14:00 BP 131/62 09/27/24 14:00 Pulse Ox 94 09/27/24 14:00 O2 Del Method Nasal Cannula 09/27/24 13:00 O2 Flow Rate 3 09/27/24 13:00 FiO2 40 09/26/24 02:47 09/27/24 09/27/24 09/27/24 06:59 14:59 22:59 Intake Total 50 / 750 1000 / 1000 Output Total 700 / 1350 Balance -650 / -600 1000 / 1000 Weight last 48 hrs Weight 107 kg Weight 103.5 kg Weight 68.039 kg Physical Exam 2 Const: COMMON NORMALS: no acute distress ORIENTATION/CONSCIOUSNESS: Yes awake, Yes oriented to person and Yes oriented to place; not oriented to time Resp: COMMON NORMALS: normal respiratory effort, No retractions, No use of accessory muscles and clear to auscultation bilaterally AUSCULTATION: clear to auscultation bilaterally Cardio: COMMON NORMALS: regular rate, regular rhythm, S1 normal heart sound present and S2 normal heart sound present RATE: regular rate RHYTHM: r egular rhythm HEART SOUNDS: S1 normal heart sound present and S2 normal heart sound present GI: COMMON NORMALS: Normal to inspection, nondistended, normoactive bowel sounds present and non-tender Extremity: COMMON NORMALS: no pedal edema Neuro: SENSORIUM/ORIENTATION: Yes oriented to person, Yes oriented to place and No oriented to time Urinary Catheter Management: Ramey: Cath Placed During This Visit: yes Reason for Continuing Indwelling Catheter: Accurate Measurement of Urinary Output in Critically Ill Patients Urinary Catheter Date of Insertion: 09/26/24 Urinary Catheter Time of Insertion: 09:29 Data 09/27/24 05:03 09/27/24 04:21 Micro: Microbiology 09/27/24 10:29 Occult Blood (FIT) - Final Stool A&P Assessment and plan (1) Severe sepsis: (2) Enteritis: (3) Pneumonia: Qualifiers: Laterality: bilateral Lung location: lower lobe of lung Pneumonia type: due to unspecified organism Qualified Code(s): J18.9 - Pneumonia, unspecified organism (4) Acute hypoxic respiratory failure: Laurent Melgar is a 69 yo man w/ colon cancer, hx of 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 hepatic encephalopathy who was brought to the ED on 09/25/2024 by his son and [id number] for 1 day of intractable nausea vomiting, diarrhea. # Acute hypoxic respiratory failure -Secondary to pneumonia, highly suspicious for aspiration pneumonia -Requiring BiPAP, now on 3 L Plan -Dysphagia level 6 diet mildly thickened -Aspiration precautions -Continue vancomycin, Zosyn, -Monitor respiratory status closely -Sputum culture -Blood culture -Urine culture -Stool studies # Enteritis -Complaints of diarrhea -Had chronic diarrhea also after his colon surgery -Stool studies positive for C. difficile, likely C. difficile colitis, placed in isolation -Start p.o. 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 difficile colitis Diagnoses Severe sepsis A41.9; R65.20 Enteritis K52.9 Pneumonia J18.9 Laterality: bilateral Lung location: lower lobe of lung Pneumonia type: due to unspecified organism Acute hypoxic respiratory failure J96.01
[2024-09-27 16:36] LABS: Glucose Point of Care 147 mg/dL (70-110)
[2024-09-27 20:44] LABS: Glucose Point of Care 226 mg/dL (70-110)
[2024-09-27] MEDS: trazodone 100 mg Tablet PO (21:53)
[2024-09-28] VITALS (40 sets, daily range): BP systolic 111–169; BP diastolic 48–83; PULSE 69–132; RESP 14–29; TEMP 36.6–39.3; O2SAT 86–95; BMI 28.2
[2024-09-28] MEDS: vancomycin 1,750 MG/350 ML PIGGYBACK 175 MG IV (00:41)
[2024-09-28] MEDS: vancomycin 125 mg Capsule PO ×2 (00:41→06:02)
[2024-09-28] MEDS: piperacillin-tazobactam 3.375 GM in sodium chloride 0.9% (plus) 50 ML IV ×3 (00:41→16:21)
--- NOTE | 2024-09-28 01:45 | PC.NURSE ---
Hematuria: Patient had pulled at thibodeaux catheter when confused, hematuria noted in thibodeaux bag. Dr. Santana notified.
[2024-09-28] MEDS: ipratropium-albuterol 3 mL Neb INHALATION ×3 (02:06→20:26)
--- NOTE | 2024-09-28 03:22 | ECG_ITS ---
[facility]: 2024-09-28 Pat Name: Jeremy Melgar Department: Room: [facility] Gender: Male [place]: : 1955 Requested By: Luma Santana Order Number: [id number] Adithya MD: Diego Ingram M.D. Measurements Intervals [place] Rate: 129 P: 0 WI: 0 QRS: 72 QRSD: 87 T: -30 QT: 242 QTc: 356 Interpretive Statements SUPRAVENTRICULAR TACHYCARDIA NONSPECIFIC ST & T-WAVE ABNORMALITY Compared to ECG 09/26/2024 06:10:27 Supraventricular rhythm no longer present T-wave abnormality still present Electronically Signed On 09-29-2024 23:28:12 [employer]ING [employer] E[employer]CEMENT OFFICER by Diego Ingram M.D. [email or web address]
[2024-09-28] MEDS: dilTIAZem 5 mg/mL SDV 5 mL 15 MG IVP (03:34)
--- NOTE | 2024-09-28 03:43 | PC.NURSE ---
Tachycardia: Patient's HR increased to 130s-140s sustained, an EKG was obtained that showed SVT. Dr. Santana was contacted and gave telephone orders for 15mg diltiazem IVP ONCE. After administration of this, patient's HR returned to 70s-80s SR.
[2024-09-28 05:25] LABS: Basophils % 0.5 %; Eosinophils # 0.1 10^3/uL (0.0-0.8); Eosinophils % 2.5 %; Hematocrit 37.1 % (37-53); Lymphocytes # 0.5 10^3/uL (0.8-4.8); Lymphocytes % 11.5 %; Mean Corpuscular Hemoglobin 33.6 pg (27-33); Mean Corpuscular Volume 98.9 fl (82-101); Mean Platelet Volume 11.3 fL (7.4-10.4); Monocytes # 0.2 10^3/uL (0.2-0.9); Monocytes % 5.2 %; Neutrophils # 3.54 10^3/uL (1.8-7.7); Neutrophils % 79.8 %; Nucleated Red Blood Cells % 0 %; Platelet Count 31 10^3/cmm (157-399); Red Blood Count 3.75 10^6/uL (3.85-5.65); Red Cell Distribution Width 14.5 % (12.1-15.1); White Blood Count 4.43 10^3/uL (3.29-11.43)
[2024-09-28 05:42] LABS: Ammonia 17 umol/L (16-60)
[2024-09-28 05:43] LABS: Alanine Aminotransferase 15 U/L (0-41); Albumin Level 3.2 g/dL (3.5-5.2); Alkaline Phosphatase 79 U/L (40-130); Anion Gap 15.8 (5-19); Aspartate Amino Transferase 33 U/L (0-40); Blood Urea Nitrogen 18 mg/dL (8-23); Calcium 8.7 mg/dL (8.5-10.5); Carbon Dioxide 19 mmol/L (22-29); Chloride 106 mmol/L (98-107); Creatinine Clr Calc Pharmacy 115.7906; Globulin 2.5 g/dL (1.3-4.6); Glucose 126 mg/dL (65-115); Magnesium 1.6 mg/dL (1.7-2.3); Osmolality Calculated 287 mOsm/kg (285-295); Phosphorus 2.2 mg/dL (2.5-4.5); Potassium 3.8 mmol/L (3.5-5.1); Sodium 137 mmol/L (136-145); Total Bilirubin 2.7 mg/dL (0.15-1.2); Total Protein 5.7 g/dL (6.6-8.7)
[2024-09-28 05:44] LABS: Lactate (Lactic Acid level) 1.2 mmol/L (0.5-2.2)
[2024-09-28 05:49] LABS: C Reactive Protein 106.6 mg/L (0.0-4.9)
[2024-09-28 05:56] LABS: Procalcitonin 1.08 ng/mL (0-0.5)
[2024-09-28] MEDS: acetaminophen 325 mg Tablet 650 MG PO ×2 (06:06→11:11)
--- NOTE | 2024-09-28 08:00 | XR_ITS ---
WS: [id number] KUB, AP portable supine, 09/28/2024 Clinical Data: distention Comparison: CT abdomen pelvis, 09/25/2024 Findings: No abnormal intraabdominal masses or calcifications are seen. There is no dilatated small bowel or ev idence of obstruction. There is air in the stomach small bowel and colon. There is a small amount of fecal material in the c olon. There are clips in the right upper quadrant from a cholecystectomy. Degenerative arthritis of t he lower thoracic and lower lumbar vertebral bodies is seen. XR/XR KUB portable [id number] Impression: Moderate generalized ileus.
[2024-09-28] MEDS: budesonide 0.5 mg/2 mL Neb INHALATION ×2 (08:13→20:26)
[2024-09-28 08:49] LABS: Glucose Point of Care 126 mg/dL (70-110)
--- NOTE | 2024-09-28 08:49 | PC.NURSE ---
Pt refusing to leave nasal cannula in nose after repeated attempts to replace. He attempted to hit this nurse at one of the times. Humidification added to oxygen. His right firefinger greenwood dried blood on it, he had just pulled it out of his right nostril.
[2024-09-28] MEDS: haloperidol inj 5 mg/mL INJ 1 mL 1 MG IM ×2 (09:28→15:40)
[2024-09-28] MEDS: pantoprazole 40 mg SDV IVP ×2 (09:28→20:04)
[2024-09-28] MEDS: metroNIDAZOLE IV 500 MG/100 ML PREMIX 100 MG IV ×2 (09:31→16:22)
--- NOTE | 2024-09-28 09:43 | PC.SLP ---
DIRECTOR OF PROVIDER RELATIONS treatment attempted. Patient not oriented, agitated and refused all oral trials.
[2024-09-28] MEDS: gabapentin 300 mg Capsule 600 MG PO ×2 (09:54→15:13)
[2024-09-28] MEDS: lactulose oral liq 20 gm/30 mL UDC 10 GM PO ×2 (09:55→18:04)
[2024-09-28] MEDS: vancomycin 125 mg Capsule 250 MG PO ×2 (09:55→13:18)
[2024-09-28] MEDS: tamsulosin 0.4 mg Capsule PO (09:55)
--- NOTE | 2024-09-28 10:00 | PC.NURSE ---
Morning PO meds: At first pt refused. He even grabbed this nurse's arm and twisted it. Yelling get the hell away from me. our are the one at the [facility] place last night. I asked for a Dr Snow and you did not bring it. After multiple requests from this nurse,tad riddle stated he wanted to talk to his son Jose on the phone. He then agreed to take his meds if his son told him ok. We called his son. Pt stated he thought You are in o it too. Son asked pt to take his meds, pt agreed. Pt reluctantly took his oral meds after phone call. He did not have any difficulty swallowing whole capsules oe at a time.
[2024-09-28 10:46] LABS: Covid PCR NEGATIVE (Negative); Influenza A NEGATIVE (Negative); Influenza B NEGATIVE (Negative); Respiratory Syncytial Virus Ce NEGATIVE (Negative)
[2024-09-28] MEDS: LORazepam 2 mg/mL INJ 1 mL 1 MG IM (11:18)
[2024-09-28 11:38] LABS: Vancomycin Trough 20.3 ug/mL (10-15)
--- NOTE | 2024-09-28 11:43 | PC.SOCIAL ---
IMM Updated pg 2 of IMM updated and reviewed w/ patient. Copy provided and copy dated, initialed and placed in chart.
[2024-09-28 12:26] LABS: Glucose Point of Care 126 mg/dL (70-110)
[2024-09-28 12:45] LABS: Bilirubin Urine 1+ (Negative); Blood Urine 3+ (Negative); Glucose Urine UA Negative (Normal); Ketones Urine Negative (Negative); Leukocyte Esterase Urine 1+ (Negative); Nitrate Urine Positive (Negative); Protein Urine 1+ (Negative); Specific Gravity, Urine 1.027 (1.005-1.030); Urine Appearance Cloudy (CLEAR); Urobilinogen Urine 0.2 mg/dL (Negative)
[2024-09-28 12:51] LABS: Add Urine Microscopic? YES; Bacteria Urine None Seen /hpf; Hyaline Casts Urine 1.68 /lpf; RBC Urine >100 /hpf (0-2); Squamous Epithelial Cell Urine 0-5 /hpf (0-5)
[2024-09-28 12:55] LABS: Urine Color Red (Yellow)
--- NOTE | 2024-09-28 12:56 | CTR_ITS ---
PROCEDURE INFORMATION: Exam: CT Head Without Contrast Exam date and time: 09/28/2024 3:55 PM Age: 69 years old Clinical indication: Altered mental status/memory loss; Patient HX: Had to scan twice; Additional info: AMS TECHNIQUE: Imaging protocol: Computed tomography of the head without contrast. Radiation optimization: All CT scans at this facility use at least one of these dose optimization techniques: automated exposure control; mA and/or kV adjustment per patient size (includes targeted exams where dose is matched to clinical indication); or iterative reconstruction. COMPARISON: CT head wo con* [id number] 09/25/2024 7:09 PM RADIATION DOSE METRICS: Total DLP (mGy-cm): 2632.98 FINDINGS: Brain: There are mild periventricular and subcortical lucencies consistent with chronic microvascular ischemic changes.The carrillo-white differentiation is maintained. No hemorrhage. No edema. Cerebral ventricles: No ventriculomegaly. Paranasal sinuses: Visualized sinuses are unremarkable. No fluid levels. Mastoid air cells: Visualized mastoid air cells are well aerated. Bones: Unremarkable. No acute fracture. Soft tissues: Unremarkable. CT/CT head wo con* [id number] IMPRESSION: No acute intracranial abnormality. Chronic microvascular ischemic changes.
[2024-09-28 12:58] LABS: Add Urine Culture? Yes
[2024-09-28] MEDS: vancomycin 1,500 MG/300 ML PIGGYBACK 200 MG IV (13:18)
--- NOTE | 2024-09-28 14:07 | PC.NURSE ---
Lab here to draw blood. this nurse was assisting hold his arm still for blood cultures. Pt grabbed this nurse's arm and squeezed once. Then he swung at this nurse in an attempt to hit.
[2024-09-28 17:41] LABS: Glucose Point of Care 289 mg/dL (70-110)
--- NOTE | 2024-09-28 18:00 | P.PN_ITS ---
Subjective 2 Subjective: - Overnight patient had episodes of conf usion, requiring haloperidol to control his agitation -This morning is alert to person, not to place, not to time he is easily agitated trying to climb up out of bed -He is redirectable, can follow commands but is quite confused, he is paranoid that there is someone outside looking in on him -He did tug on his Ramey catheter overni ght, had hematuria -Had episode of SVT during the night, cu rrently has been in sinus rhythm -Urine in the Ramey bag looks quite clou dy with sediment, will get urinalysis -Repeat UA, UA looks like patient has a UTI he is on Vanco and Zosyn, will broaden for ESBL coverage to meropenem -Respiratory viral panel within normal l imits -Repeated CT of the head no acute findin gs -Ammonia levels within normal notes -Discussed with family patient's acute e ncephalopathy, likely secondary to UTI, will follow his repeat blood cultures and urine cultures he did have low-grade fevers during the night, will watch his mentation closely -He also tested positive for C. difficil e, is on medication for C. difficile I will have to add on Flagyl as because of his confusion he is not regularly taking his p.o. Vanco -Will start him on scheduled doses of Zy prexa Vitals/I&O/Wt Last Vital Signs Temp 98.2 F 09/28/24 11:00 Pulse 104 H 09/28/24 16:50 Resp 20 H 09/28/24 16:00 BP 126/61 09/28/24 16:00 Pulse Ox 88 L 09/28/24 15:00 O2 Del Method Room Air 09/28/24 16:00 O2 Flow Rate 4 09/28/24 07:00 FiO2 40 09/26/24 02:47 09/28/24 09/28/24 09/28/24 06:59 14:59 22:59 Intake Total 400 / 1450 450 / 450 650 / 1100 Output Total 1024 / 2024 Balance -625 / -575 450 / 450 650 / 1100 Weight last 48 hrs Weight 108 kg Weight 107 kg Physical Exam 2 Const: COMMON NORMALS: no acute distress ORIENTATION/CONSCIOUSNESS: Yes awake, Yes oriented to person and Yes confused; not oriented to place and not oriented to time Resp: COMMON NORMALS: normal respiratory effort, No retractions, No use of accessory muscles and clear to auscultation bilaterally AUSCULTATION: clear to auscultation bilaterally Cardio: COMMON NORMALS: regular rate, regular rhythm, S1 normal heart sound present and S2 normal heart sound present RATE: regular rate RHYTHM: r egular rhythm HEART SOUNDS: S1 normal heart sound present and S2 normal heart sound present GI: COMMON NORMALS: Normal to inspection, nondistended, normoactive bowel sounds present and non-tender Extremity: COMMON NORMALS: no pedal edema Neuro: SENSORIUM/ORIENTATION: Yes oriented to person, No oriented to place and No oriented to time Urinary Catheter Management: Ramey: Cath Placed During This Visit: yes Reason for Continuing Indwelling Catheter: Accurate Measurement of Urinary Output in Critically Ill Patients Urinary Catheter Date of Insertion: 09/26/24 Urinary Catheter Time of Insertion: 09:29 Data 09/28/24 05:16 09/28/24 05:16 Micro: Microbiology 09/26/24 19:25 Urine Culture - Final Urine Catheterized 09/25/24 22:06 Blood Culture - Preliminary Blood NEGATIVE TO DATE 09/25/24 22:00 Blood Culture - Preliminary Blood NEGATIVE TO DATE A&P Assessment and plan (1) Severe sepsis: (2) Enteritis: (3) Pneumonia: Qualifiers: Laterality: bilateral Lung location: lower lobe of lung Pneumonia type: due to unspecified organism Qualified Code(s): J18.9 - Pneumonia, unspecified organism (4) Acute hypoxic respiratory failure: (5) UTI (urinary tract infection): (6) Acute encephalopathy: Plan Jeremy Melgar is a 69 yo man w/ colon cancer, 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 # Acute encephalopathy -CT head no acute findings -Is on broad-spectrum antibiotic therapy for pneumonia -Is on p.o. vancomycin for C. difficile IV Flagyl added -Likely sec to UTI broaden coverage for meropenem ESBL coverage # Acute hypoxic respiratory failure -Secondary to pneumonia, highly suspicious for aspiration pneumonia -Requiring BiPAP, now on 3 L Plan -Dysphagia level 6 diet mildly thickened -Aspiration precautions -Continue vancomycin, meropenem -Monitor respiratory status closely -Sputum culture -Blood culture -Urine culture -Stool studies # Urinary tract infection with Ramey catheter in place, vancomycin, Zosyn -Broaden antibiotic coverage to meropenem to cover for ESBL -Follow repeat blood cultures -Repeat urine cultures # Enteritis, secondary to C. difficile colitis -Complaints of diarrhea -Had chronic diarrhea also after his colon surgery -Stool studies positive for C. difficile, likely C. difficile colitis, placed in isolation -Start p.o. vancomycin, Flagyl added IV as patient is not regularily taking p.o. 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 difficile colitis Diagnoses Severe sepsis A41.9; R65.20 Enteritis K52.9 Pneumonia J18.9 Laterality: bilateral Lung location: lower lobe of lung Pneumonia type: due to unspecified organism Acute hypoxic respiratory failure J96.01 UTI (urinary tract infection) N39.0 Acute encephalopathy G93.40
[2024-09-28] MEDS: OLANZapine 5 mg ODT 2.5 MG PO (18:04)
[2024-09-28] MEDS: insulin lispro 100 unit/1 mL SUBCUT (18:06)
[2024-09-28] MEDS: meropenem 500 mg SDV IVP (18:06)
--- NOTE | 2024-09-28 19:56 | PC.NURSE ---
Son and pt's back in unit to check on pt. Updated on afternoon's events.
--- NOTE | 2024-09-28 20:03 | PC.NURSE ---
Shift summary: Pt has been alert to self and very confused and paranoid today. He has been aggressive with staff,: trying to hit, trying to squeeze arm and once twisting this nurse's arm, and difficult to redirect. He has received haldol twice, Ativan this am and Zyprexa this evening. He has trying to moving out of bed, throw his feet out of bed numerous times. he has pulled at thibodeaux, IV lines an monitoring wires. Bed alarm is set. He has been incontinent of loose stool numerous times, which would increase his agitation and restlessness. His bottom and peritoneal area are red but skin remains intact at this time. Sinus rhythm noted on monitor. VSS. Another UA, COVID/RSV/flu swab and CT done today. He tolerated poorly. He refused eating this am due to his agitation and paranoia. He did eat better in afternoon and a few bites at dinner time. He did, with much coaxing from family and staff, take all of his oral medications this sift. His urine is dark reddish brown. he had 850 ml of output. He did complain of headache before lunch and asked for acetaminophen, which was admin.
[2024-09-28 21:15] LABS: Glucose Point of Care 139 mg/dL (70-110)
--- NOTE | 2024-09-28 21:30 | PC.NURSE ---
Contacted Dr. Santana in reference to patient being unresponsive except painful stimuli, a change in status from condition report given to this nurse, and this nurse's concerns of choke risk of PO medications. Dr Duvall came to bedside shortly after to assess patient. Orders received for NG Tube placement as well as stat head CT w/o contrast. Orders received shortly after for lactulose, 60gm PO once, to be administered through NG tube when placement achieved and confirmed by XR. Discussed with Dr. Santana about holding previous 2100 PO medications: Zyprexa, Trazadone, Gabapentin. Orders received to hold said medications for now.
--- NOTE | 2024-09-28 21:33 | CTR_ITS ---
PROCEDURE INFORMATION: Exam: CT Head Without Contrast Exam date and time: 09/28/2024 9:54 PM Age: 69 years old Clinical indication: Altered mental status/memory loss; Patient HX: Sudden change in mentation. Change from agitation to unresponsiveness. ; Additional info: Change in mental status TECHNIQUE: Imaging protocol: Computed tomography of the head without contrast. Radiation optimization: All CT scans at this facility use at least one of these dose optimization techniques: automated exposure control; mA and/or kV adjustment per patient size (includes targeted exams where dose is matched to clinical indication); or iterative reconstruction. COMPARISON: CT head wo con* [id number] 09/28/2024 3:55 PM RADIATION DOSE METRICS: Total DLP (mGy-cm): 1249.28 FINDINGS: Brain: There are moderate periventricular and subcortical lucencies consistent with chronic microvascular ischemic changes.The carrillo-white differentiation is maintained. No hemorrhage. No edema. Cerebral ventricles: No ventriculomegaly. Paranasal sinuses: Visualized sinuses are unremarkable. No fluid levels. Mastoid air cells: Visualized mastoid air cells are well aerated. Bones: Unremarkable. No acute fracture. Soft tissues: Unremarkable. CT/CT head wo con* [id number] IMPRESSION: No acute intracranial abnormality. Chronic microvascular ischemic changes.
--- NOTE | 2024-09-28 22:37 | XRR_ITS ---
PROCEDURE INFORMATION: Exam: XR Abdomen Exam date and time: 09/28/2024 10:42 PM Age: 69 years old Clinical indication: Device placement; Gi device; Nasogastric tube; Patient HX: Ng tube confirmation; Additional info: Check ng tube placement. TECHNIQUE: Imaging protocol: Radiologic exam of the abdomen. Views: Frontal supine view of the abdomen. 1 View. COMPARISON: CR XR KUB portable [id number] 09/28/2024 8:06 AM FINDINGS: Tubes, catheters and devices: Nasogastric tube with its tip in the region of stomach. Gastrointestinal tract: Normal. No bowel dilation. Bones/joints: Degenerative changes of the spine. XR/XR abdomen 1V* [id number] IMPRESSION: Nasogastric tube with its tip in the region of stomach.
[2024-09-28] MEDS: lactulose oral liq 20 gm/30 mL UDC 60 GM PO (23:08)
--- NOTE | 2024-09-28 23:58 | PC.NURSE ---
Spoke with telepharmacy in ref. to vancomycin. Pharmacy changed order to vancomycin that can be drawn from a 500mg vial in our pyxis and they assured this nurse that it is appropriate for NG tube administration. The subsequent doses have been timed for 6am an onward so on-site pharmacy can mix those doses.
[2024-09-29] VITALS (54 sets, daily range): BP systolic 95–168; BP diastolic 51–98; PULSE 75–107; RESP 16–26; TEMP 37.1–39.1; O2SAT 88–97
[2024-09-29] MEDS: metroNIDAZOLE IV 500 MG/100 ML PREMIX 100 MG IV ×3 (00:06→17:47)
[2024-09-29] MEDS: meropenem 500 mg SDV IVP ×2 (00:09→07:42)
[2024-09-29] MEDS: vancomycin 1,500 MG/300 ML PIGGYBACK 200 MG IV ×2 (01:46→12:00)
[2024-09-29 02:37] LABS: Glucose Point of Care 184 mg/dL (70-110)
--- NOTE | 2024-09-29 03:13 | PC.NURSE ---
Received verbal orders from Dr. Santana to ensure AM labs include: CBC, CMP, Mag, Phosphate, INR, PTT. Also, received orders for patient to receive 1L NS fluid replacement.
[2024-09-29] MEDS: sodium chloride 0.9% 1,000 ML 150 ML IV (03:48)
[2024-09-29 04:13] LABS: INR 1.21 (0.8-1.2)
[2024-09-29 04:14] LABS: Partial Thromboplastin Time 38.7 SECONDS (23.9-36.7)
[2024-09-29 04:15] LABS: Basophils % 0.5 %; Eosinophils # 0.1 10^3/uL (0.0-0.8); Eosinophils % 1.4 %; Hematocrit 39.9 % (37-53); Lymphocytes # 0.6 10^3/uL (0.8-4.8); Lymphocytes % 9.4 %; Mean Corpuscular HGB Conc 34.3 g/dL (30-55); Mean Corpuscular Hemoglobin 32.9 pg (27-33); Mean Corpuscular Volume 95.7 fl (82-101); Mean Platelet Volume 12.2 fL (7.4-10.4); Monocytes # 0.4 10^3/uL (0.2-0.9); Monocytes % 6.5 %; Neutrophils # 4.77 10^3/uL (1.8-7.7); Neutrophils % 81.9 %; Nucleated Red Blood Cells % 0 %; Platelet Count 41 10^3/cmm (157-399); Red Blood Count 4.17 10^6/uL (3.85-5.65); Red Cell Distribution Width 14.5 % (12.1-15.1); White Blood Count 5.83 10^3/uL (3.29-11.43)
[2024-09-29 04:23] LABS: C Reactive Protein 114.2 mg/L (0.0-4.9)
[2024-09-29 04:28] LABS: Procalcitonin 0.73 ng/mL (0-0.5)
[2024-09-29 04:36] LABS: Ammonia 28 umol/L (16-60)
[2024-09-29 04:40] LABS: Alanine Aminotransferase 20 U/L (0-41); Albumin Level 3.4 g/dL (3.5-5.2); Alkaline Phosphatase 94 U/L (40-130); Anion Gap 18.3 (5-19); Aspartate Amino Transferase 46 U/L (0-40); Blood Urea Nitrogen 14 mg/dL (8-23); Calcium 8.8 mg/dL (8.5-10.5); Carbon Dioxide 17 mmol/L (22-29); Chloride 104 mmol/L (98-107); Creatinine Clr Calc Pharmacy 115.7906; Globulin 2.4 g/dL (1.3-4.6); Glucose 174 mg/dL (65-115); Magnesium 1.7 mg/dL (1.7-2.3); Osmolality Calculated 287 mOsm/kg (285-295); Phosphorus 2.2 mg/dL (2.5-4.5); Potassium 3.3 mmol/L (3.5-5.1); Sodium 136 mmol/L (136-145); Total Bilirubin 3.8 mg/dL (0.15-1.2); Total Protein 5.8 g/dL (6.6-8.7)
--- NOTE | 2024-09-29 06:27 | PC.NURSE ---
This nurse entered the room to find patient had pulled his NG tube out. Dr. Valle notified. This nurse discussed patient's improving mentation, now alert to person and place, can follow commands. Received orders to wait before inserting new NG tube to allow for reevaluation.
[2024-09-29] MEDS: vancomycin 100 mg/1 mL Oral Syringe 250 MG PO ×3 (07:41→17:47)
[2024-09-29] MEDS: pantoprazole 40 mg SDV IVP ×2 (07:41→22:20)
[2024-09-29] MEDS: acetaminophen 325 mg Tablet 650 MG PO (07:43)
[2024-09-29 07:53] LABS: Glucose Point of Care 136 mg/dL (70-110)
[2024-09-29] MEDS: tamsulosin 0.4 mg Capsule PO (08:22)
[2024-09-29] MEDS: gabapentin 300 mg Capsule 600 MG PO ×3 (08:22→22:14)
[2024-09-29] MEDS: lactulose oral liq 20 gm/30 mL UDC 10 GM PO ×3 (08:23→22:16)
[2024-09-29] MEDS: budesonide 0.5 mg/2 mL Neb INHALATION ×2 (09:13→20:48)
[2024-09-29] MEDS: ipratropium-albuterol 3 mL Neb INHALATION ×3 (09:13→20:48)
[2024-09-29 12:12] LABS: Glucose Point of Care 130 mg/dL (70-110)
--- NOTE | 2024-09-29 14:52 | P.PN_ITS ---
Vitals/I&O/Wt Last Vital Signs Temp 99.2 F 09/29/24 12:30 Pulse 97 09/29/24 14:22 Resp 18 09/29/24 14:22 BP 122/55 09/29/24 12:30 Pulse Ox 94 09/29/24 14:22 O2 Del Method Nasal Cannula 09/29/24 14:22 O2 Flow Rate 2 09/29/24 14:22 FiO2 40 09/26/24 02:47 09/28/24 09/29/24 09/29/24 22:59 06:59 14:59 Intake Total 870 / 1320 400 / 1720 300 / 300 Output Total 850 / 850 1600 / 2450 1200 / 1200 Balance 20 / 470 -1200 / -730 -900 / -900 Weight last 48 hrs Weight 107.499 kg Weight 107.5 kg Weight 108 kg Physical Exam 2 Const: COMMON NORMALS: no acute distress ORIENTATION/CONSCIOUSNESS: Yes awake, Yes oriented to person and Yes confused; not oriented to place and not oriented to time Resp: COMMON NORMALS: normal respiratory effort, No retractions, No use of accessory muscles and clear to auscultation bilaterally AUSCULTATION: clear to auscultation bilaterally Cardio: COMMON NORMALS: regular rate, regular rhythm, S1 normal heart sound present and S2 normal heart sound present RATE: regular rate RHYTHM: r egular rhythm HEART SOUNDS: S1 normal heart sound present and S2 normal heart sound present GI: COMMON NORMALS: Normal to inspection, nondistended, normoactive bowel sounds present and non-tender Extremity: COMMON NORMALS: no pedal edema Neuro: SENSORIUM/ORIENTATION: Yes oriented to person, No oriented to place and No oriented to time Psych: COMMON NORMALS: mental status grossly normal Urinary Catheter Management: Ramey: Cath Placed During This Visit: yes Reason for Continuing Indwelling Catheter: Accurate Measurement of Urinary Output in Critically Ill Patients Urinary Catheter Date of Insertion: 09/26/24 Urinary Catheter Time of Insertion: 09:29 Data 09/29/24 03:45 09/29/24 03:45 Micro: Microbiology 09/28/24 09:57 Urine Culture - Preliminary Urine,Clean Catch 09/29/24 03:48 Blood Culture - Preliminary Blood SPECIMEN COLLECTED 09/29/24 03:45 Blood Culture - Preliminary Blood SPECIMEN COLLECTED 09/26/24 19:25 Urine Culture - Final Urine Catheterized A&P Assessment and plan (1) Severe sepsis: (2) Enteritis: (3) Pneumonia: Qualifiers: Laterality: bilateral Lung location: lower lobe of lung Pneumonia type: due to unspecified organism Qualified Code(s): J18.9 - Pneumonia, unspecified organism (4) Acute hypoxic respiratory failure: (5) UTI (urinary tract infection): (6) Acute encephalopathy: Plan Jeremy Melgar is a 69 yo man w/ colon cancer, 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 # Acute encephalopathy -CT head no acute findings -Is on broad-spectrum antibiotic therapy for pneumonia -Is on p.o. vancomycin for C. difficile IV Flagyl added -Likely sec to UTI broaden coverage for meropenem ESBL coverage -Ramey catheter removed, culture tip # Acute hypoxic respiratory failure -Secondary to pneumonia, highly suspicious for aspiration pneumonia -Requiring BiPAP, now on 3 L Plan -Dysphagia level 6 diet mildly thickened -Aspiration precautions -Continue vancomycin, meropenem -Monitor respiratory status closely -Sputum culture -Blood culture -Urine culture -Stool studies # Urinary tract infection with Ramey catheter in place, vancomycin, Zosyn -Broaden antibiotic coverage to meropenem to cover for ESBL -Follow repeat blood cultures -Repeat urine cultures -Ramey catheter removed # Enteritis, secondary to C. difficile colitis -Complaints of diarrhea -Had chronic diarrhea also after his colon surgery -Stool studies positive for C. difficile, likely C. difficile colitis, placed in isolation -Start p.o. vancomycin, Flagyl added IV as patient is not regularily taking p.o. 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 hepatic encephalopathy - Monitor Ammonia level # Thrombocytopenia -Avoid anticoagulant therapy, hold Eliquis -Monitor #hx of colon cancer #non-IDDM2: -Low-dose sliding scale insulin with meals ordered Apixaban, secondary to lower extremity DVT, currently on hold due to thrombocytopenia DVT ppx: Apixaban currently on hold due to thrombocytopenia, SCDs GI ppx: PPI Code Status: full code Patient requires hospitalization for acute encephalopathy, UTI, respiratory failure pneumonia Attestations 2 Medical Necessity Statement*: Patient requires hospitalization for acute encephalopathy, UTI, enteritis Diagnoses Severe sepsis A41.9; R65.20 Enteritis K52.9 Pneumonia J18.9 Laterality: bilateral Lung location: lower lobe of lung Pneumonia type: due to unspecified organism Acute hypoxic respiratory failure J96.01 UTI (urinary tract infection) N39.0 Acute encephalopathy G93.40
[2024-09-29] MEDS: OLANZapine 5 mg ODT PO (15:56)
[2024-09-29] MEDS: meropenem 1,000 mg SDV 1000 MG IVP (17:46)
[2024-09-29] MEDS: insulin lispro 100 unit/1 mL SUBCUT (18:01)
[2024-09-29 18:14] LABS: Glucose Point of Care 161 mg/dL (70-110)
--- NOTE | 2024-09-29 18:28 | PC.NURSE ---
SHift SUmmary: Uneventful shift. Rested in bed for most of the day, was up to a chair for about 3 hours and ate 100% of lunch. Took all PO meds. Mental status was variable, at times he was oriented to person, place, and situation, but it was brief and only when family was present. Karoline discontinued and tip cultured.
--- NOTE | 2024-09-29 19:32 | PC.NURSE ---
Whil proividing catheter care before thibodeaux was removed, glans was found to be excoriated with broken skin around the edges. Site was cleaned and dried. Assessed and cleaned/dried multiple times throughout the day. Night nurse notified.
[2024-09-29 21:46] LABS: Anion Gap 16.8 (5-19); Blood Urea Nitrogen 15 mg/dL (8-23); Calcium 8.8 mg/dL (8.5-10.5); Carbon Dioxide 19 mmol/L (22-29); Chloride 110 mmol/L (98-107); Creatinine Clr Calc Pharmacy 115.5506; Glucose 124 mg/dL (65-115); Osmolality Calculated 296 mOsm/kg (285-295); Potassium 3.8 mmol/L (3.5-5.1); Sodium 142 mmol/L (136-145)
[2024-09-29] MEDS: trazodone 100 mg Tablet PO (22:14)
[2024-09-29 22:34] LABS: Glucose Point of Care 118 mg/dL (70-110)
[2024-09-30] VITALS (59 sets, daily range): BP systolic 88–157; BP diastolic 50–92; PULSE 69–108; RESP 12–28; TEMP 36.6–37.8; O2SAT 80–96
[2024-09-30] MEDS: acetaminophen 325 mg Tablet 650 MG PO (02:11)
[2024-09-30] MEDS: vancomycin 100 mg/1 mL Oral Syringe 250 MG PO ×2 (02:11→11:49)
[2024-09-30] MEDS: meropenem 1,000 mg SDV 1000 MG IVP ×3 (02:16→16:47)
[2024-09-30] MEDS: vancomycin 1,500 MG/300 ML PIGGYBACK 200 MG IV (02:21)
[2024-09-30] MEDS: metroNIDAZOLE IV 500 MG/100 ML PREMIX 100 MG IV ×2 (02:25→08:36)
[2024-09-30] MEDS: ipratropium-albuterol 3 mL Neb INHALATION ×4 (02:42→19:31)
[2024-09-30 05:38] LABS: Basophils % 0.6 %; Eosinophils # 0.1 10^3/uL (0.0-0.8); Eosinophils % 1.9 %; Hematocrit 31.2 % (37-53); Lymphocytes # 0.5 10^3/uL (0.8-4.8); Lymphocytes % 14.3 %; Mean Corpuscular HGB Conc 34.3 g/dL (30-55); Mean Corpuscular Hemoglobin 32.9 pg (27-33); Monocytes # 0.2 10^3/uL (0.2-0.9); Monocytes % 7.5 %; Neutrophils # 2.41 10^3/uL (1.8-7.7); Neutrophils % 75.1 %; Nucleated Red Blood Cells % 0 %; Platelet Count 31 10^3/cmm (157-399); Red Blood Count 3.25 10^6/uL (3.85-5.65); Red Cell Distribution Width 14.4 % (12.1-15.1); White Blood Count 3.21 10^3/uL (3.29-11.43)
[2024-09-30 05:55] LABS: Lactate (Lactic Acid level) 1.6 mmol/L (0.5-2.2)
[2024-09-30 06:00] LABS: Ammonia 26 umol/L (16-60)
[2024-09-30 06:01] LABS: Alanine Aminotransferase 17 U/L (0-41); Albumin Level 2.8 g/dL (3.5-5.2); Alkaline Phosphatase 66 U/L (40-130); Aspartate Amino Transferase 36 U/L (0-40); Blood Urea Nitrogen 17 mg/dL (8-23); C Reactive Protein 111.1 mg/L (0.0-4.9); Calcium 8.1 mg/dL (8.5-10.5); Carbon Dioxide 19 mmol/L (22-29); Chloride 111 mmol/L (98-107); Creatinine Clr Calc Pharmacy 115.5506; Globulin 1.8 g/dL (1.3-4.6); Glucose 151 mg/dL (65-115); Magnesium 1.6 mg/dL (1.7-2.3); Osmolality Calculated 294 mOsm/kg (285-295); Sodium 140 mmol/L (136-145); Total Bilirubin 2.1 mg/dL (0.15-1.2); Total Protein 4.6 g/dL (6.6-8.7)
[2024-09-30 06:04] LABS: Procalcitonin 0.73 ng/mL (0-0.5)
--- NOTE | 2024-09-30 06:11 | PC.NURSE ---
Spoke with Dr. Santana in reference to patient's critical vanc trough of 27.3. Received orders to hold further IV vanc until pharmacy can redose, continue with oral vanc administration.
--- NOTE | 2024-09-30 06:17 | PC.NURSE ---
Contacted in patient pharmacy in reference to patient's vanc trough of 27.3. Pharmacy stated they would double check to make sure it gets redosed.
[2024-09-30 08:05] LABS: Glucose Point of Care 120 mg/dL (70-110)
[2024-09-30 08:18] LABS: Erythrocyte Sedimentation Rate 8 mm/hr (0-10)
[2024-09-30] MEDS: pantoprazole 40 mg SDV IVP ×2 (08:35→20:38)
[2024-09-30] MEDS: gabapentin 300 mg Capsule 600 MG PO ×2 (08:37→20:38)
[2024-09-30] MEDS: tamsulosin 0.4 mg Capsule PO (08:38)
[2024-09-30] MEDS: budesonide 0.5 mg/2 mL Neb INHALATION ×2 (08:42→19:31)
[2024-09-30 11:11] LABS: Adenovirus Not Detected (NOT DETECT); Chlamydia Pneumoniae Not Detected (NOT DETECT); Coronavirus 229E,HKU1,NL63,OC4 Not Detected (NOT DETECT); Human Metapneumovirus Not Detected (NOT DETECT); Human Rhinovirus/Enterovirus Not Detected (NOT DETECT); Influenza A Not Detected (NOT DETECT); Influenza A H1 Not Detected (NOT DETECT); Influenza A H1-2009 Not Detected (NOT DETECT); Influenza A H3 Not Detected (NOT DETECT); Influenza B Not Detected (NOT DETECT); Mycoplasma Pneumoniae Not Detected (NOT DETECT); Parainfluenza Virus Type 1 Not Detected (NOT DETECT); Parainfluenza Virus Type 2 Not Detected (NOT DETECT); Parainfluenza Virus Type 3 Not Detected (NOT DETECT); Parainfluenza Virus Type 4 Not Detected (NOT DETECT); Respiratory Syncytial Virus A Not Detected (NOT DETECT); Respiratory Syncytial Virus B Not Detected (NOT DETECT); SARS-COV-2 Not Detected (NOT DETECT)
[2024-09-30] MEDS: lidocaine 1% 5 ML in potassium chloride premix 100 ML 26.25 ML IV (11:46)
[2024-09-30] MEDS: magnesium sulfate premix 1 GM/100 ML PIGGYBACK IV (11:48)
[2024-09-30 12:20] LABS: Glucose Point of Care 157 mg/dL (70-110)
--- NOTE | 2024-09-30 16:09 | P.PN_ITS ---
Subjective 2 Subjective: Patient was seen this morning, he is talking to his over the phone I was able to speak to patient and over the phone, he is alert to person, to place, not to time he follows commands, tells me he got some sleep overnight, he is rectal tube is uncomfortable discussed potentially removing it his ammonia levels look better his mentation is brighter discussed his cyclic fevers, he has these fevers late at night, will have to follow his cultures continue antibiotics it could be drug-induced induced fevers, will have to follow his cultures continue antibiotics, order venous ultrasound, patient and voiced understanding, all questions answered Vitals/I&O/Wt Last Vital Signs Temp 99.3 F 09/30/24 14:58 Pulse 105 H 09/30/24 15:18 Resp 24 H 09/30/24 14:58 BP 110/64 09/30/24 14:58 Pulse Ox 94 09/30/24 15:18 O2 Del Method Nasal Cannula 09/30/24 14:58 O2 Flow Rate 2 09/30/24 13:44 FiO2 35 09/30/24 15:18 09/30/24 09/30/24 09/30/24 06:59 14:59 22:59 Intake Total 600 / 1522 440 / 440 Balance 600 / -178 440 / 440 Weight last 48 hrs Weight 107 kg Weight 107.499 kg Weight 107.5 kg Physical Exam 2 Const: COMMON NORMALS: no acute distress ORIENTATION/CONSCIOUSNESS: Yes awake, Yes oriented to person and Yes oriented to place; not oriented to time Neck/C-Spine: COMMON NORMALS: no JVD Resp: COMMON NORMALS: normal respiratory effort, No retractions, No use of accessory muscles and clear to auscultation bilaterally AUSCULTATION: clear to auscultation bilaterally Cardio: COMMON NORMALS: no JVD, regular rate, regular rhythm, S1 normal heart sound present and S2 normal heart sound present RATE: regular rate RHYTHM: regular rhythm HEART SOUNDS: S1 normal heart sound present and S2 normal heart sound present GI: COMMON NORMALS: Normal to inspection, nondistended, normoactive bowel sounds present and non-tender Extremity: COMMON NORMALS: no pedal edema Neuro: SENSORIUM/ORIENTATION: Yes oriented to person, Yes oriented to place and No oriented to time Psych: COMMON NORMALS: mental status grossly normal Urinary Catheter Management: Ramey: Cath Placed During This Visit: yes Reason for Continuing Indwelling Catheter: Accurate Measurement of Urinary Output in Critically Ill Patients Urinary Catheter Date of Insertion: 09/26/24 Urinary Catheter Time of Insertion: 09:29 Data 09/30/24 05:22 09/30/24 05:22 Micro: Microbiology 09/29/24 09:20 Catheter Tip Culture - Preliminary Other Source 09/28/24 09:57 Urine Culture - Final Urine,Clean Catch 09/29/24 03:48 Blood Culture - Preliminary Blood NEGATIVE TO DATE 09/29/24 03:45 Blood Culture - Preliminary Blood NEGATIVE TO DATE A&P Assessment and plan (1) Severe sepsis: (2) Enteritis: (3) Pneumonia: Qualifiers: Laterality: bilateral Lung location: lower lobe of lung Pneumonia type: due to unspecified organism Qualified Code(s): J18.9 - Pneumonia, unspecified organism (4) Acute hypoxic respiratory failure: (5) UTI (urinary tract infection): (6) Acute encephalopathy: Plan Jeremy Melgar is a 69 yo man w/ colon cancer, 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 # Recurrent fevers -Patient has recurrent fevers, cyclic fevers typically at night -Could be drug-induced fevers -Will monitor # Acute encephalopathy, mentation improving -CT head no acute findings -Is on broad-spectrum antibiotic therapy for pneumonia -Is on p.o. vancomycin for C. difficile -Likely sec to UTI broaden coverage for meropenem ESBL coverage -Ramey catheter removed, culture tip # Acute hypoxic respiratory failure -Secondary to pneumonia, highly suspicious for aspiration pneumonia -Requiring BiPAP, now on nasal cannula Plan -Dysphagia level 6 diet mildly thickened -Aspiration precautions -Continue vancomycin, meropenem -Monitor respiratory status closely -Sputum culture, so far no growth -Blood culture, so far no growth -Urine culture, so far no growth -Stool studies, C. difficile # Urinary tract infection with Ramey catheter in place, vancomycin, Zosyn -Broaden antibiotic coverage to meropenem to cover for ESBL -Given Ramey catheter in place, and a UTI continue Zyvox -Follow repeat blood cultures, so far no growth -Repeat urine cultures -Ramey catheter removed # Enteritis, secondary to C. difficile colitis -Complaints of diarrhea -Had chronic diarrhea also after his colon surgery -Stool studies positive for C. difficile, likely C. difficile colitis, placed in isolation -p.o. 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 hepatic encephalopathy - Monitor Ammonia level # Thrombocytopenia -Avoid anticoagulant therapy, hold Eliquis -Monitor #hx of colon cancer #non-IDDM2: -Low-dose sliding scale insulin with meals ordered Apixaban, secondary to lower extremity DVT, currently on hold due to thrombocytopenia DVT ppx: Apixaban currently on hold due to thrombocytopenia, SCDs GI ppx: PPI Code Status: full code Patient requires hospitalization for acute encephalopathy, UTI, respiratory failure pneumonia Attestations 2 Medical Necessity Statement*: Patient requires hospitalization for recurrent fevers encephalopathy, UTI, pneumonia, C. difficile colitis Diagnoses Severe sepsis A41.9; R65.20 Enteritis K52.9 Pneumonia J18.9 Laterality: bilateral Lung location: lower lobe of lung Pneumonia type: due to unspecified organism Acute hypoxic respiratory failure J96.01 UTI (urinary tract infection) N39.0 Acute encephalopathy G93.40
--- NOTE | 2024-09-30 16:40 | XRR_ITS ---
PROCEDURE INFORMATION: Exam: XR Chest Exam date and time: 09/30/2024 6:07 PM Age: 69 years old Clinical indication: Shortness of breath; Additional info: SOB TECHNIQUE: Imaging protocol: Radiologic exam of the chest. Views: 1 view. COMPARISON: CR (CHEST, ) 09/25/2024 9:14 PM FINDINGS: Lungs: Persistent, mildly worsened airspace opacification in the right lung base. New left perihilar and mid lung airspace opacities. New interstitial and ground-glass opacities in the right upper lobe. Pleural spaces: No pleural effusion or pneumothorax. Heart/Mediastinum: The cardiomediastinal silhouette is stable. Bones/joints: No acute osseous abnormalities are seen. XR/XR chest 1V portable [id number] IMPRESSION: Worsening bilateral ground-glass and airspace opacities. Differential includes worsening multifocal pneumonia and pulmonary edema.
[2024-09-30] MEDS: FUROsemide 10 mg/mL SDV 4mL 40 MG IVP ×2 (16:48→20:40)
[2024-09-30 17:08] LABS: NT Pro B Type Natriuretic Pept 2758 pg/mL (0-125)
[2024-09-30 17:24] LABS: Glucose Point of Care 203 mg/dL (70-110)
[2024-09-30] MEDS: morphine 4 mg/mL SDV 1 mL 2 MG IVP (17:29)
[2024-09-30] MEDS: lidocaine 1% 5 ML in potassium chloride premix 100 ML 52.5 ML IV (20:37)
[2024-09-30] MEDS: trazodone 100 mg Tablet PO (20:38)
[2024-09-30] MEDS: linezolid premix 600 MG/300 ML PREMIX 300 MG IV (20:39)
[2024-09-30] MEDS: insulin lispro 100 unit/1 mL SUBCUT (21:16)
[2024-09-30 21:38] LABS: Glucose Point of Care 205 mg/dL (70-110)
[2024-10-01] VITALS (34 sets, daily range): BP systolic 96–146; BP diastolic 44–83; PULSE 69–95; RESP 14–29; TEMP 36.4–38.2; O2SAT 81–98
[2024-10-01] MEDS: meropenem 1,000 mg SDV 1000 MG IVP ×3 (00:55→19:14)
[2024-10-01] MEDS: vancomycin 100 mg/1 mL Oral Syringe 250 MG PO ×4 (00:56→21:13)
[2024-10-01] MEDS: ipratropium-albuterol 3 mL Neb INHALATION ×4 (02:11→19:34)
[2024-10-01 05:10] LABS: Basophils % 0.6 %; Eosinophils # 0.2 10^3/uL (0.0-0.8); Eosinophils % 6.4 %; Hematocrit 34.7 % (37-53); Lymphocytes # 0.6 10^3/uL (0.8-4.8); Lymphocytes % 18.3 %; Mean Corpuscular HGB Conc 33.1 g/dL (30-55); Mean Corpuscular Hemoglobin 32.5 pg (27-33); Mean Platelet Volume 11.9 fL (7.4-10.4); Monocytes # 0.3 10^3/uL (0.2-0.9); Monocytes % 7.9 %; Neutrophils # 2.15 10^3/uL (1.8-7.7); Neutrophils % 65.6 %; Nucleated Red Blood Cells % 0 %; Platelet Count 40 10^3/cmm (157-399); Red Blood Count 3.54 10^6/uL (3.85-5.65); Red Cell Distribution Width 14.6 % (12.1-15.1); White Blood Count 3.28 10^3/uL (3.29-11.43)
[2024-10-01 05:28] LABS: Lactate (Lactic Acid level) 1.4 mmol/L (0.5-2.2)
[2024-10-01 05:29] LABS: Alanine Aminotransferase 17 U/L (0-41); Albumin Level 2.6 g/dL (3.5-5.2); Alkaline Phosphatase 66 U/L (40-130); Ammonia 36 umol/L (16-60); Anion Gap 17.3 (5-19); Aspartate Amino Transferase 28 U/L (0-40); Blood Urea Nitrogen 20 mg/dL (8-23); C Reactive Protein 111.6 mg/L (0.0-4.9); Calcium 8.1 mg/dL (8.5-10.5); Carbon Dioxide 17 mmol/L (22-29); Chloride 106 mmol/L (98-107); Creatinine Clr Calc Pharmacy 115.3115; Globulin 2.2 g/dL (1.3-4.6); Glucose 127 mg/dL (65-115); Magnesium 1.6 mg/dL (1.7-2.3); Osmolality Calculated 288 mOsm/kg (285-295); Potassium 3.3 mmol/L (3.5-5.1); Sodium 137 mmol/L (136-145); Total Bilirubin 1.7 mg/dL (0.15-1.2); Total Protein 4.8 g/dL (6.6-8.7)
[2024-10-01 05:35] LABS: Procalcitonin 0.83 ng/mL (0-0.5)
[2024-10-01 08:26] LABS: Glucose Point of Care 117 mg/dL (70-110)
[2024-10-01] MEDS: budesonide 0.5 mg/2 mL Neb INHALATION ×2 (08:59→19:34)
[2024-10-01] MEDS: FUROsemide 10 mg/mL SDV 4mL 40 MG IVP ×2 (10:16→20:50)
[2024-10-01] MEDS: albumin 12.5 GM/250 ML VIAL IV (10:16)
[2024-10-01] MEDS: pantoprazole 40 mg SDV IVP ×2 (10:16→20:50)
[2024-10-01] MEDS: magnesium sulfate premix 1 GM/100 ML PIGGYBACK IV (10:17)
[2024-10-01] MEDS: potassium phosphate (mEq K) 40 MEQ in sodium chloride 0.9% (100 ml) 100 ML 27.25 MEQ IV (10:18)
[2024-10-01] MEDS: metOLazone 5 MG Tablet PO (10:18)
[2024-10-01] MEDS: linezolid premix 600 MG/300 ML PREMIX 300 MG IV ×2 (10:19→20:47)
[2024-10-01] MEDS: lactulose oral liq 20 gm/30 mL UDC 10 GM PO ×2 (10:19→19:15)
[2024-10-01] MEDS: gabapentin 300 mg Capsule 600 MG PO ×3 (10:19→20:39)
[2024-10-01] MEDS: tamsulosin 0.4 mg Capsule PO (10:20)
[2024-10-01] MEDS: morphine 4 mg/mL SDV 1 mL 2 MG IVP ×3 (10:20→19:15)
--- NOTE | 2024-10-01 11:22 | XR_ITS ---
WS: [id number] Exam: XR chest 1V portable [id number] Date/Time of Exam: 10/01/2024 11:24 AM Reason For Exam: sob Comparison 09/30/2024. Bilateral airspace and interstitial infiltrates are noted. There is been slight improvement involving infiltrate in the RIGHT upper lobe but no other significant change. No pneumothorax or pleural effus ion. Heart size remains stable. The mediastinum is normal in contour. Bony structures are intact. XR/XR chest 1V portable [id number] IMPRESSION: 1. Bilateral pulmonary infiltrates. There has been some improvement involving i nfiltrate in the RIGHT upper lobe but no other significant change.
[2024-10-01] MEDS: lanolin oint 7 gm 1 APPLIC TOPICAL (11:31)
[2024-10-01 12:00] LABS: Glucose Point of Care 122 mg/dL (70-110)
--- NOTE | 2024-10-01 16:05 | PC.SOCIAL ---
IMM updated IMM dated and initialed, copy given to patient and copy placed in chart.
--- NOTE | 2024-10-01 16:08 | USCV_ITS ---
Ramón Jeremy Age: 69 Gender: M : 1955 Exam Date: 10/01/2024 07:10 Ordering Phys: Michele Hart MD Technologist: EFREN [place] [facility] [place]: Swelling HISTORY: Lower extremity swelling. PROCEDURES: Venous duplex imaging was performed in bilateral lower extremities. The following venous structures were evaluated: common femoral vein, profunda vein, proximal portion of the greater saphenous vein, superficial femoral vein, and the popliteal vein. In addition, the posterior tibial and peroneal trunk were evaluated. Serial compression, augmentation maneuvers, and spectral Doppler flow evaluation were performed. FINDINGS: No evidence of DVT seen in any vessel visualized at this time. CONCLUSIONS No evidence of right lower extremity DVT. No evidence of left lower extremity DVT. Sadiq Rojo MD (Electronically Signed) Final Date: 01 October 2024 10:11 S
[2024-10-01 17:39] LABS: Glucose Point of Care 192 mg/dL (70-110)
--- NOTE | 2024-10-01 18:06 | P.PN_ITS ---
Subjective 2 Subjective: Patient was seen this morning, he is alert awake, to person, to place, not to time he follows commands is at bedside he tells me that he is supposed to be on BiPAP chronically but he has issues with the mask, discussed continue to try BiPAP while he is here in the hospital for his respiratory failure yesterday evening he had an episode of respiratory failure, requiring BiPAP fluid overload potentially an aspiration event, we discussed continuing diuresis, changing his diet to dysphagia level 4 diet, aspiration precautions modified barium swallow ordered, he is in agreement, is in agreement he is currently on 8 L, Vitals/I&O/Wt Last Vital Signs Temp 98.4 F 10/01/24 16:00 Pulse 82 10/01/24 16:00 Resp 20 H 10/01/24 16:00 BP 146/75 10/01/24 16:00 Pulse Ox 95 10/01/24 16:00 O2 Del Method Nasal Cannula 10/01/24 16:00 O2 Flow Rate 8 10/01/24 16:00 FiO2 35 09/30/24 15:18 10/01/24 10/01/24 10/01/24 06:59 14:59 22:59 Intake Total 105 / 1450 240 / 240 Output Total 450 / 850 1200 / 1200 Balance -345 / 600 240 / 240 -1200 / -960 Weight last 48 hrs Weight 107 kg Weight 107 kg Physical Exam 2 Const: COMMON NORMALS: no acute distress ORIENTATION/CONSCIOUSNESS: Yes awake, Yes oriented to person and Yes oriented to place; not oriented to time Resp: COMMON NORMALS: normal respiratory effort, No retractions and No use of accessory muscles AUSCULTATION: crackles and rales Cardio: COMMON NORMALS: regular rate, regular rhythm, S1 normal heart sound present and S2 normal heart sound present RATE: regular rate RHYTHM: r egular rhythm HEART SOUNDS: S1 normal heart sound present and S2 normal heart sound present GI: COMMON NORMALS: Normal to inspection, nondistended, normoactive bowel sounds present and non-tender Extremity: COMMON NORMALS: no pedal edema Neuro: SENSORIUM/ORIENTATION: Yes oriented to person, Yes oriented to place and No oriented to time Psych: COMMON NORMALS: mental status grossly normal Urinary Catheter Management: Ramey: Cath Placed During This Visit: yes Reason for Continuing Indwelling Catheter: Accurate Measurement of Urinary Output in Critically Ill Patients Urinary Catheter Date of Insertion: 09/26/24 Urinary Catheter Time of Insertion: 09:29 Data 10/01/24 05:00 10/01/24 05:00 Micro: Microbiology 09/27/24 10:29 E. coli Shiga-like Toxin (PCR) - Final Stool Salmonella/Shigella Culture - Final 09/29/24 09:20 Catheter Tip Culture - Final Other Source 09/25/24 22:06 Blood Culture - Final Blood NO GROWTH AFTER 5 DAYS 09/25/24 22:00 Blood Culture - Final Blood NO GROWTH AFTER 5 DAYS A&P Assessment and plan (1) Severe sepsis: (2) Enteritis: (3) Pneumonia: Qualifiers: Laterality: bilateral Lung location: lower lobe of lung Pneumonia type: due to unspecified organism Qualified Code(s): J18.9 - Pneumonia, unspecified organism (4) Acute hypoxic respiratory failure: (5) UTI (urinary tract infection): (6) Acute encephalopathy: Plan Jeremy Melgar is a 69 yo man w/ colon cancer, 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 # Acute hypoxic respiratory failure, currently on 8 L -Is chronically on BiPAP has not been using it as outpatient due to issues with the mask continue BiPAP here as needed during the day, scheduled during the night -Secondary to fluid overload, flash pulm edema -Secondary to aspiration event Plan -Lasix 40 IV twice daily with metolazone -Potassium replacement therapy -Albumin therapy -Aspiration precautions dysphagia level 4 diet, moderately thickened -Modified barium swallow ordered -IV antibiotics as below meropenem, Zyvox -Sputum culture, so far no growth -Blood culture, so far no growth -Urine culture, so far no growth -Stool studies, C. difficile # Recurrent fevers -Patient has recurrent fevers, cyclic fevers typically at night -Could be drug-induced fevers -Will monitor # Acute encephalopathy, mentation improving -CT head no acute findings -Is on broad-spectrum antibiotic therapy for pneumonia -Is on p.o. vancomycin for C. difficile -Likely sec to UTI broaden coverage for meropenem ESBL coverage -Ramey catheter removed, culture tip # Urinary tract infection with Ramey catheter in place, vancomycin, Zosyn -Broaden antibiotic coverage to meropenem to cover for ESBL -Given Ramey catheter in place, and a UTI continue Zyvox -Follow repeat blood cultures, so far no growth -Repeat urine cultures -Ramey catheter removed # Enteritis, secondary to C. difficile colitis -Complaints of diarrhea -Had chronic diarrhea also after his colon surgery -Stool studies positive for C. difficile, likely C. difficile colitis, placed in isolation -p.o. 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 hepatic encephalopathy - Monitor Ammonia level # Thrombocytopenia -Avoid anticoagulant therapy, hold Eliquis -Monitor #hx of colon cancer #non-IDDM2: -Low-dose sliding scale insulin with meals ordered Apixaban, secondary to lower extremity DVT, currently on hold due to thrombocytopenia DVT ppx: Apixaban currently on hold due to thrombocytopenia, SCDs GI ppx: PPI Code Status: full code Lasix, metolazone, albumin therapy aspiration precautions, modified barium swallow Attestations 2 Medical Necessity Statement*: Patient requires hospitalization for acute encephalopathy, UTI, respiratory failure pneumonia, now with acute hypoxic respiratory failure concerns for acute flash pulm edema, recurrent aspiration event Diagnoses Severe sepsis A41.9; R65.20 Enteritis K52.9 Pneumonia J18.9 Laterality: bilateral Lung location: lower lobe of lung Pneumonia type: due to unspecified organism Acute hypoxic respiratory failure J96.01 UTI (urinary tract infection) N39.0 Acute encephalopathy G93.40
[2024-10-01] MEDS: insulin lispro 100 unit/1 mL SUBCUT ×2 (19:14→21:14)
[2024-10-01] MEDS: potassium chloride ER 20 mEq Tablet PO (20:39)
[2024-10-01] MEDS: trazodone 100 mg Tablet PO (20:40)
[2024-10-01 21:02] LABS: Glucose Point of Care 202 mg/dL (70-110)
--- NOTE | 2024-10-01 21:59 | PC.NURSE ---
Incontinence Episode: 400ml in urinal, unknown amount of urine in bed. Unable to accurately measure urine output.
[2024-10-02] VITALS (36 sets, daily range): BP systolic 84–134; BP diastolic 49–96; PULSE 71–96; RESP 10–22; TEMP 36.9–37.7; O2SAT 88–99
[2024-10-02] MEDS: meropenem 1,000 mg SDV 1000 MG IVP ×3 (00:08→15:43)
[2024-10-02] MEDS: ipratropium-albuterol 3 mL Neb INHALATION ×4 (01:39→19:53)
--- NOTE | 2024-10-02 03:25 | PC.NURSE ---
1 Void: Incontinence episode, unable to measure.
[2024-10-02 04:18] LABS: Basophils % 0.5 %; Eosinophils # 0.3 10^3/uL (0.0-0.8); Eosinophils % 7.2 %; Hematocrit 34.7 % (37-53); Lymphocytes # 0.6 10^3/uL (0.8-4.8); Lymphocytes % 15.7 %; Mean Corpuscular HGB Conc 33.1 g/dL (30-55); Mean Corpuscular Hemoglobin 32.7 pg (27-33); Mean Corpuscular Volume 98.6 fl (82-101); Mean Platelet Volume 11.7 fL (7.4-10.4); Monocytes # 0.3 10^3/uL (0.2-0.9); Monocytes % 6.6 %; Neutrophils # 2.62 10^3/uL (1.8-7.7); Neutrophils % 69.7 %; Nucleated Red Blood Cells % 0 %; Platelet Count 51 10^3/cmm (157-399); Red Blood Count 3.52 10^6/uL (3.85-5.65); Red Cell Distribution Width 14.4 % (12.1-15.1); White Blood Count 3.76 10^3/uL (3.29-11.43)
[2024-10-02 04:38] LABS: Ammonia 16 umol/L (16-60); Lactate (Lactic Acid level) 1.5 mmol/L (0.5-2.2)
[2024-10-02 04:44] LABS: Alanine Aminotransferase 16 U/L (0-41); Alkaline Phosphatase 70 U/L (40-130); Aspartate Amino Transferase 25 U/L (0-40); Blood Urea Nitrogen 25 mg/dL (8-23); C Reactive Protein 109.3 mg/L (0.0-4.9); Carbon Dioxide 22 mmol/L (22-29); Chloride 106 mmol/L (98-107); Creatinine Clr Calc Pharmacy 115.3115; Globulin 1.5 g/dL (1.3-4.6); Glucose 132 mg/dL (65-115); Magnesium 1.7 mg/dL (1.7-2.3); Osmolality Calculated 296 mOsm/kg (285-295); Sodium 140 mmol/L (136-145); Total Bilirubin 1.5 mg/dL (0.15-1.2); Total Protein 4.5 g/dL (6.6-8.7)
[2024-10-02 04:47] LABS: Anion Gap 15.8 (5-19); Potassium 3.8 mmol/L (3.5-5.1)
[2024-10-02] MEDS: vancomycin 100 mg/1 mL Oral Syringe 250 MG PO ×4 (04:55→20:46)
[2024-10-02] MEDS: morphine 4 mg/mL SDV 1 mL 2 MG IVP (05:00)
[2024-10-02 08:11] LABS: Glucose Point of Care 139 mg/dL (70-110)
[2024-10-02] MEDS: budesonide 0.5 mg/2 mL Neb INHALATION ×2 (08:37→19:53)
[2024-10-02] MEDS: lactulose oral liq 20 gm/30 mL UDC 10 GM PO ×2 (08:41→17:15)
[2024-10-02] MEDS: pantoprazole 40 mg SDV IVP ×2 (08:41→20:43)
[2024-10-02] MEDS: linezolid premix 600 MG/300 ML PREMIX 300 MG IV (08:42)
[2024-10-02] MEDS: potassium chloride ER 20 mEq Tablet 40 MEQ PO (08:42)
[2024-10-02] MEDS: tamsulosin 0.4 mg Capsule PO (08:42)
[2024-10-02] MEDS: gabapentin 300 mg Capsule 600 MG PO ×3 (08:42→20:43)
[2024-10-02] MEDS: FUROsemide 10 mg/mL SDV 4mL 40 MG IVP (08:42)
[2024-10-02 11:16] LABS: Glucose Point of Care 247 mg/dL (70-110)
--- NOTE | 2024-10-02 11:22 | FL_ITS ---
WS: [id number] Exam: FL barium swallow modifd [id number] Date/Time of Exam: 10/02/2024 9:47 AM Reason For Exam: Oral dysphagia Fluoroscopy time: minutes # of spot films: Modified barium swallow was performed. Oral pharyngeal phase of swallowing was normal. The patient experienced mild penetration when ingesti ng thin liquid and nectar consistency barium foodstuffs. No aspiration was seen. The patient swallowe d the barium tablet without difficulty however the tablet was retained in the lower esophagus. A swal low of thin liquid propelled the tablet into the stomach. FL/FL barium swallow modifd [id number] IMPRESSION: 1. No evidence of aspiration. 2. Mild penetration into the laryngeal inlet when the patient ingested thin liq uid and nectar consistency barium foodstuffs. 3. Retention of the barium tablet into the lower esophagus. The tablet was prop elled into the stomach with additional swallows of thin liquid barium. A separate report with recommendations will follow from the speech therapy serv ice.
[2024-10-02] MEDS: insulin lispro 100 unit/1 mL SUBCUT ×3 (11:56→20:44)
[2024-10-02] MEDS: acetaminophen 325 mg Tablet 650 MG PO (15:43)
[2024-10-02 17:12] LABS: Glucose Point of Care 199 mg/dL (70-110)
--- NOTE | 2024-10-02 17:17 | PC.OT ---
Patient is asleep in room. Discuss with nursing if it is acceptable to wake and they report to let him rest due to lack of sleep recently. Hold OT TX on this date and continue treatment plan as stated.
--- NOTE | 2024-10-02 17:22 | P.PN_ITS ---
Subjective 2 Subjective: Patient was seen this morning, he is enjoying his dysphagia level 4 diet, alert to person, to place, somewhat to time he follows all commands son is at bedside, currently on 8 L but breathing easier discussed modified barium swallow today, continue to IV diuresis, he is agreement Vitals/I&O/Wt Last Vital Signs Temp 98.5 F 10/02/24 09:00 Pulse 85 10/02/24 16:00 Resp 14 10/02/24 16:00 BP 117/56 10/02/24 16:00 Pulse Ox 95 10/02/24 16:00 O2 Del Method Nasal Cannula 10/02/24 16:00 O2 Flow Rate 5 10/02/24 16:00 FiO2 40 10/02/24 12:00 10/02/24 10/02/24 10/02/24 06:59 14:59 22:59 Intake Total 480 / 1779.0909 480 / 480 Output Total 525 / 525 800 / 1325 Balance 480 / -370.9091 -45 / -45 -800 / -845 Weight last 48 hrs Weight 105.778 kg Weight 107 kg Physical Exam 2 Const: COMMON NORMALS: no acute distress and patient oriented x3 Resp: COMMON NORMALS: normal respiratory effort, No retractions and No use of accessory muscles AUSCULTATION: crackles and wheezes Cardio: COMMON NORMALS: regular rate, regular rhythm, S1 normal heart sound present and S2 normal heart sound present RATE: regular rate RHYTHM: r egular rhythm HEART SOUNDS: S1 normal heart sound present and S2 normal heart sound present GI: COMMON NORMALS: Normal to inspection, nondistended, normoactive bowel sounds present and non-tender Extremity: COMMON NORMALS: no pedal edema Neuro: COMMON NORMALS: patient oriented x3 Psych: COMMON NORMALS: mental status grossly normal Urinary Catheter Management: Ramey: Cath Placed During This Visit: yes Reason for Continuing Indwelling Catheter: Accurate Measurement of Urinary Output in Critically Ill Patients Urinary Catheter Date of Insertion: 09/26/24 Urinary Catheter Time of Insertion: 09:29 Data 10/02/24 04:03 10/02/24 04:03 Micro: Microbiology 09/27/24 10:29 Ova and Parasite Concentrate Exam - Final Stool 09/27/24 10:29 E. 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 # Acute hypoxic respiratory failure, currently on 8 L -Is chronically on BiPAP has not been using it as outpatient due to issues with the mask continue BiPAP here as needed during the day, scheduled during the night -Secondary to fluid overload, flash pulm edema -Secondary to aspiration event Plan -Lasix 40 IV twice daily -Potassium replacement therapy -Albumin therapy as needed -Aspiration precautions dysphagia level 4 diet, moderately thickened -Modified barium swallow ordered -IV antibiotics as below meropenem, Zyvox -Sputum culture, so far no growth -Blood culture, so far no growth -Urine culture, so far no growth -Stool studies, C. difficile # Recurrent fevers -Patient has recurrent fevers, cyclic fevers typically at night -Could be drug-induced fevers -Will monitor # Acute encephalopathy, mentation improving -CT head no acute findings -Is on broad-spectrum antibiotic therapy for pneumonia -Is on p.o. vancomycin for C. difficile -Likely sec to UTI broaden coverage for meropenem ESBL coverage -Ramey catheter removed, culture tip # Urinary tract infection with Ramey catheter in place, vancomycin, Zosyn -Broaden antibiotic coverage to meropenem to cover for ESBL -Given Ramey catheter in place, and a UTI continue Zyvox -Follow repeat blood cultures, so far no growth -Repeat urine cultures -Ramey catheter removed # Enteritis, secondary to C. difficile colitis -Complaints of diarrhea -Had chronic diarrhea also after his colon surgery -Stool studies positive for C. difficile, likely C. difficile colitis, placed in isolation -p.o. 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 hepatic encephalopathy - Monitor Ammonia level # Thrombocytopenia -Avoid anticoagulant therapy, hold Eliquis -Monitor #hx of colon cancer #non-IDDM2: -Low-dose sliding scale insulin with meals ordered Apixaban, secondary to lower extremity DVT, currently on hold due to thrombocytopenia DVT ppx: Apixaban currently on hold due to thrombocytopenia, SCDs GI ppx: PPI Code Status: full code Plan for today dysphagia level 4 diet, aspiration precautions modified barium swallow, IV diuresis monitor respiratory status closely will likely moved to medical floors Attestations 2 Medical Necessity Statement*: Patient requires hospitalization for acute hypoxic respiratory failure secondary fluid overload Diagnoses Severe sepsis A41.9; R65.20 Enteritis K52.9 Pneumonia J18.9 Laterality: bilateral Lung location: lower lobe of lung Pneumonia type: due to unspecified organism Acute hypoxic respiratory failure J96.01 UTI (urinary tract infection) N39.0 Acute encephalopathy G93.40
[2024-10-02] MEDS: spironolactone 25 mg Tablet 50 MG PO (18:02)
[2024-10-02 19:11] LABS: NT Pro B Type Natriuretic Pept 1052 pg/mL (0-125)
[2024-10-02 20:37] LABS: Glucose Point of Care 211 mg/dL (70-110)
[2024-10-02] MEDS: trazodone 100 mg Tablet PO (20:43)
--- NOTE | 2024-10-02 23:53 | PC.NURSE ---
Contacted. Dr Nicholson in reference to a short run of Vtac, 4 beats. Received orders for EKG, phosphate magnesium and ABG draw.
[2024-10-03] VITALS (28 sets, daily range): BP systolic 100–136; BP diastolic 49–69; PULSE 68–86; RESP 12–20; TEMP 36.8–37.6; O2SAT 2–98
[2024-10-03] MEDS: meropenem 1,000 mg SDV 1000 MG IVP ×3 (00:36→16:24)
[2024-10-03] MEDS: ipratropium-albuterol 3 mL Neb INHALATION ×4 (02:09→19:47)
[2024-10-03] MEDS: acetaminophen 325 mg Tablet 650 MG PO ×2 (02:17→11:30)
[2024-10-03] MEDS: vancomycin 100 mg/1 mL Oral Syringe 250 MG PO ×2 (04:28→08:32)
[2024-10-03 05:52] LABS: Basophils % 0.4 %; Eosinophils # 0.2 10^3/uL (0.0-0.8); Eosinophils % 3.9 %; Hematocrit 32.6 % (37-53); Lymphocytes # 0.5 10^3/uL (0.8-4.8); Lymphocytes % 11.1 %; Mean Corpuscular HGB Conc 34.4 g/dL (30-55); Mean Corpuscular Hemoglobin 32.8 pg (27-33); Mean Corpuscular Volume 95.6 fl (82-101); Mean Platelet Volume 11.9 fL (7.4-10.4); Monocytes # 0.2 10^3/uL (0.2-0.9); Monocytes % 3.7 %; Neutrophils # 3.71 10^3/uL (1.8-7.7); Neutrophils % 80.5 %; Nucleated Red Blood Cells % 0 %; Platelet Count 54 10^3/cmm (157-399); Red Blood Count 3.41 10^6/uL (3.85-5.65); Red Cell Distribution Width 13.9 % (12.1-15.1); White Blood Count 4.61 10^3/uL (3.29-11.43)
[2024-10-03 06:09] LABS: Alanine Aminotransferase 16 U/L (0-41); Albumin Level 2.8 g/dL (3.5-5.2); Alkaline Phosphatase 75 U/L (40-130); Anion Gap 15.8 (5-19); Aspartate Amino Transferase 22 U/L (0-40); Blood Urea Nitrogen 27 mg/dL (8-23); C Reactive Protein 105.4 mg/L (0.0-4.9); Calcium 8.2 mg/dL (8.5-10.5); Carbon Dioxide 21 mmol/L (22-29); Chloride 100 mmol/L (98-107); Creatinine Clr Calc Pharmacy 114.7259; Globulin 2.2 g/dL (1.3-4.6); Glucose 133 mg/dL (65-115); Magnesium 1.6 mg/dL (1.7-2.3); Osmolality Calculated 283 mOsm/kg (285-295); Phosphorus 2.6 mg/dL (2.5-4.5); Potassium 3.8 mmol/L (3.5-5.1); Sodium 133 mmol/L (136-145); Total Bilirubin 1.8 mg/dL (0.15-1.2)
[2024-10-03 06:21] LABS: NT Pro B Type Natriuretic Pept 495 pg/mL (0-125)
[2024-10-03 07:09] LABS: Glucose Point of Care 140 mg/dL (70-110)
[2024-10-03] MEDS: budesonide 0.5 mg/2 mL Neb INHALATION ×2 (08:12→19:47)
[2024-10-03] MEDS: lactulose oral liq 20 gm/30 mL UDC 10 GM PO ×2 (08:32→18:16)
[2024-10-03] MEDS: gabapentin 300 mg Capsule 600 MG PO ×3 (08:32→21:00)
[2024-10-03] MEDS: tamsulosin 0.4 mg Capsule PO (08:32)
[2024-10-03] MEDS: spironolactone 25 mg Tablet 50 MG PO (08:32)
[2024-10-03] MEDS: pantoprazole 40 mg SDV IVP ×2 (08:33→21:00)
[2024-10-03] MEDS: potassium chloride ER 20 mEq Tablet PO (09:16)
[2024-10-03] MEDS: magnesium lactate 84 mg Tablet PO ×2 (09:16→18:16)
[2024-10-03] MEDS: metOLazone 5 MG Tablet PO (09:16)
[2024-10-03] MEDS: FUROsemide 10 mg/mL SDV 4mL 40 MG IVP (09:17)
[2024-10-03 11:05] LABS: Glucose Point of Care 215 mg/dL (70-110)
[2024-10-03] MEDS: insulin lispro 100 unit/1 mL SUBCUT ×2 (11:09→21:00)
--- NOTE | 2024-10-03 12:31 | PC.SOCIAL ---
IMM Updated Updated pt & family on IMM. No questions voiced. Provided pt a copy. Initialed, dated, & timed copy in chart.
[2024-10-03] MEDS: vancomycin 125 mg Capsule 250 MG PO ×2 (14:02→18:16)
--- NOTE | 2024-10-03 16:48 | PC.NURSE ---
Report was called to CLINT Ye in [facility]. Patient was transferred successfully. Patient's belongings were sent with the patient to [facility].
--- NOTE | 2024-10-03 17:15 | P.PN_ITS ---
Vitals/I&O/Wt Last Vital Signs Temp 98.6 F 10/03/24 08:00 Pulse 76 10/03/24 16:30 Resp 18 10/03/24 16:30 BP 112/55 10/03/24 16:30 Pulse Ox 95 10/03/24 16:30 O2 Del Method Nasal Cannula 10/03/24 16:30 O2 Flow Rate 2 10/03/24 16:30 FiO2 35 10/02/24 21:43 10/03/24 10/03/24 10/03/24 06:59 14:59 22:59 Intake Total 240 / 1160 Output Total 300 / 1625 Balance -60 / -465 Weight last 48 hrs Weight 106.325 kg Weight 105.778 kg Physical Exam 2 Const: COMMON NORMALS: no acute distress ORIENTATION/CONSCIOUSNESS: Yes awake, Yes oriented to person and Yes oriented to place; not oriented to time Resp: COMMON NORMALS: normal respiratory effort, No retractions, No use of accessory muscles and clear to auscultation bilaterally AUSCULTATION: clear to auscultation bilaterally Cardio: COMMON NORMALS: regular rate, regular rhythm, S1 normal heart sound present and S2 normal heart sound present RATE: regular rate RHYTHM: r egular rhythm HEART SOUNDS: S1 normal heart sound present and S2 normal heart sound present GI: COMMON NORMALS: Normal to inspection, nondistended, normoactive bowel sounds present and non-tender Extremity: COMMON NORMALS: no pedal edema Neuro: SENSORIUM/ORIENTATION: Yes oriented to person, Yes oriented to place and No oriented to time Psych: COMMON NORMALS: mental status grossly normal Urinary Catheter Management: Ramey: Cath Placed During This Visit: yes Reason for Continuing Indwelling Catheter: Accurate Measurement of Urinary Output in Critically Ill Patients Urinary Catheter Date of Insertion: 09/26/24 Urinary Catheter Time of Insertion: 09:29 Data 10/03/24 04:41 10/03/24 04:41 Micro: Microbiology 09/27/24 10:29 Ova and Parasite Concentrate Exam - Final Stool 09/27/24 10:29 E. coli Shiga-like Toxin (PCR) - Final Stool Salmonella/Shigella Culture - Final Campylobacter (PCR) - Final A&P Assessment and plan (1) Severe sepsis: (2) Enteritis: (3) Pneumonia: Qualifiers: Laterality: bilateral Lung location: lower lobe of lung Pneumonia type: due to unspecified organism Qualified Code(s): J18.9 - Pneumonia, unspecified organism (4) Acute hypoxic respiratory failure: (5) UTI (urinary tract infection): (6) Acute encephalopathy: Plan Jeremy Melgar is a 69 yo man w/ colon cancer, hx of 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 hepatic encephalopathy who was brought to the ED on 09/25/2024 by his son and [id number] for 1 day of intractable nausea vomiting, diarrhea. # Acute hypoxic respiratory failure, currently on 4 L -Is chronically on BiPAP has not been using it as outpatient due to issues with the mask continue BiPAP here as needed during the day, scheduled during the night -Secondary to fluid overload, flash pulm edema -Secondary to aspiration event Plan -Continue IV Lasix -Potassium replacement therapy -Albumin therapy as needed -Aspiration precautions dysphagia level 4 diet, moderately thickened -Modified barium swallow ordered FL/FL barium swallow modifd [id number] IMPRESSION: 1. No evidence of aspiration. 2. Mild penetration into the laryngeal inlet when the patient ingested thin liquid and nectar consistency barium foodstuffs. 3. Retention of the barium tablet into the lower esophagus. The tablet was propelled into the stomach with additional swallows of thin liquid barium. -IV antibiotics as below meropenem, Zyvox completed, transition to Augmentin -Sputum culture, so far no growth -Blood culture, so far no growth -Urine culture, so far no growth -Stool studies, C. difficile # Recurrent fevers, resolving -Patient has recurrent fevers, cyclic fevers typically at night -Could be drug-induced fevers -Will monitor # Acute encephalopathy, mentation improving -CT head no acute findings -Is on broad-spectrum antibiotic therapy for pneumonia -Is on p.o. vancomycin for C. difficile -Likely sec to UTI broaden coverage for meropenem ESBL coverage -Ramey catheter removed, culture tip # Urinary tract infection with Ramey catheter in place, vancomycin, Zosyn, discontinued -Broaden antibiotic coverage to meropenem to cover for ESBL, discontinued -Given Ramey catheter in place, and a UTI continue Zyvox, discontinued -Follow repeat blood cultures, so far no growth -Repeat urine cultures -Ramey catheter removed # Transition to p.o. Augmentin # Enteritis, secondary to C. difficile colitis -Complaints of diarrhea, resolved -Had chronic diarrhea also after his colon surgery -Stool studies positive for C. difficile, likely C. difficile colitis, placed in isolation, completed isolation for 48 hours, symptomatology has resolved clinically improving taken off isolation -p.o. vancomycin, #Severe Sepsis: Bibasilar pneumonia, concerns for enteritis, UTI, resolved -Sepsis features met given lactic acidosis, respiratory failure, elevated CRP, Pro-Ernesto #Intractable N/V #Lactic acidosis #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 hepatic encephalopathy - Monitor Ammonia level # Thrombocytopenia -Avoid anticoagulant therapy, hold Eliquis -Monitor #hx of colon cancer #non-IDDM2: -Low-dose sliding scale insulin with meals ordered Apixaban, secondary to lower extremity DVT, currently on hold due to thrombocytopenia DVT ppx: Apixaban currently on hold due to thrombocytopenia, SCDs GI ppx: PPI Code Status: full code Plan for today plan for today continue dysphagia level 4 diet, continue IV diuresis, moved to medical floors Attestations 2 Medical Necessity Statement*: Patient requires hospitalization for acute hypoxic respiratory failure, fluid overload aspiration, C. difficile colitis Diagnoses Severe sepsis A41.9; R65.20 Enteritis K52.9 Pneumonia J18.9 Laterality: bilateral Lung location: lower lobe of lung Pneumonia type: due to unspecified organism Acute hypoxic respiratory failure J96.01 UTI (urinary tract infection) N39.0 Acute encephalopathy G93.40
[2024-10-03 20:35] LABS: Glucose Point of Care 179 mg/dL (70-110)
[2024-10-03] MEDS: morphine 4 mg/mL SDV 1 mL 2 MG IVP (21:01)
[2024-10-03] MEDS: trazodone 100 mg Tablet PO (21:01)
[2024-10-04] VITALS (10 sets, daily range): BP systolic 107–108; BP diastolic 56–62; PULSE 72–87; RESP 16–20; TEMP 36.4–36.8; O2SAT 2–93
[2024-10-04] MEDS: morphine 4 mg/mL SDV 1 mL 2 MG IVP ×2 (00:59→05:28)
[2024-10-04] MEDS: vancomycin 125 mg Capsule 250 MG PO ×3 (00:59→12:23)
[2024-10-04] MEDS: ipratropium-albuterol 3 mL Neb INHALATION ×2 (02:13→07:57)
[2024-10-04 05:02] LABS: Basophils % 0.5 %; Eosinophils # 0.2 10^3/uL (0.0-0.8); Eosinophils % 4.5 %; Hematocrit 30.3 % (37-53); Lymphocytes # 0.6 10^3/uL (0.8-4.8); Lymphocytes % 16.9 %; Mean Corpuscular HGB Conc 34.3 g/dL (30-55); Mean Corpuscular Hemoglobin 33.1 pg (27-33); Mean Corpuscular Volume 96.5 fl (82-101); Mean Platelet Volume 12.4 fL (7.4-10.4); Monocytes # 0.2 10^3/uL (0.2-0.9); Monocytes % 4.2 %; Neutrophils # 2.79 10^3/uL (1.8-7.7); Neutrophils % 73.6 %; Nucleated Red Blood Cells % 0 %; Platelet Count 54 10^3/cmm (157-399); Red Blood Count 3.14 10^6/uL (3.85-5.65); Red Cell Distribution Width 13.8 % (12.1-15.1); White Blood Count 3.79 10^3/uL (3.29-11.43)
[2024-10-04 05:21] LABS: Alanine Aminotransferase 14 U/L (0-41); Albumin Level 2.5 g/dL (3.5-5.2); Alkaline Phosphatase 82 U/L (40-130); Aspartate Amino Transferase 22 U/L (0-40); Blood Urea Nitrogen 30 mg/dL (8-23); C Reactive Protein 86.8 mg/L (0.0-4.9); Calcium 8.1 mg/dL (8.5-10.5); Carbon Dioxide 23 mmol/L (22-29); Chloride 99 mmol/L (98-107); Creatinine Clr Calc Pharmacy 117.5621; Globulin 2.2 g/dL (1.3-4.6); Glucose 130 mg/dL (65-115); Magnesium 1.8 mg/dL (1.7-2.3); Osmolality Calculated 282 mOsm/kg (285-295); Phosphorus 2.9 mg/dL (2.5-4.5); Sodium 132 mmol/L (136-145); Total Bilirubin 1.4 mg/dL (0.15-1.2); Total Protein 4.7 g/dL (6.6-8.7)
[2024-10-04 05:28] LABS: NT Pro B Type Natriuretic Pept 668 pg/mL (0-125)
[2024-10-04] MEDS: potassium chloride ER 20 mEq Tablet PO (05:30)
[2024-10-04] MEDS: FUROsemide 10 mg/mL SDV 4mL 40 MG IVP (05:30)
[2024-10-04 07:19] LABS: Glucose Point of Care 124 mg/dL (70-110)
[2024-10-04] MEDS: budesonide 0.5 mg/2 mL Neb INHALATION (07:57)
[2024-10-04] MEDS: lactulose oral liq 20 gm/30 mL UDC 10 GM PO (11:01)
[2024-10-04] MEDS: spironolactone 25 mg Tablet 50 MG PO (11:02)
[2024-10-04] MEDS: tamsulosin 0.4 mg Capsule PO (11:02)
[2024-10-04] MEDS: pantoprazole 40 mg SDV IVP (11:02)
[2024-10-04] MEDS: lanolin oint 7 gm 1 APPLIC TOPICAL (11:02)
[2024-10-04] MEDS: gabapentin 300 mg Capsule 600 MG PO (11:02)
[2024-10-04] MEDS: metOLazone 5 MG Tablet PO (11:02)
[2024-10-04] MEDS: amoxicillin-clav 875-125 mg Tablet 1 TAB PO (11:02)
[2024-10-04] MEDS: magnesium lactate 84 mg Tablet PO (11:02)
[2024-10-04 11:08] LABS: Glucose Point of Care 220 mg/dL (70-110)
--- NOTE | 2024-10-04 11:16 | P.DS_ITS ---
Discharge Providers Date of Admission: 09/25/24 21:38 Date of Discharge: October 04, 2024 Attending Provider at Admission: Luma Santana MD Attending Provider at Discharge: Michele Hart MD Diagnoses at Discharge Discharge Diagnosis (1) Severe sepsis: Status: Acute (2) Enteritis: Status: Acute (3) Pneumonia: Status: Acute Qualifiers: Laterality: bilateral Lung location: lower lobe of lung Pneumonia type: due to unspecified organism Qualified Code(s): J18.9 - Pneumonia, unspecified organism (4) Acute hypoxic respiratory failure: Status: Acute (5) UTI (urinary tract infection): Status: Acute (6) Acute encephalopathy: Status: Acute Reason for Visit Reason for Visit: vomitting Hospital Course Hospital Course This is a 69-year-old female, with a past medical history of nonalcoholic liver cirrhosis, history of DVT on Eliquis, history of hepatic encephalopathy who presents [facility] due to nausea vomiting Patient had a prolonged hospitalization look at my last progress note for further detail Patient was admitted to [facility] for acute encephalopathy likely secondary hepatic encephalopathy, received lactulose, mentation has improved also complicated by UTI, pneumonia, C. difficile colitis. Overall patient's mentation improved, discharge alert oriented x 3, following all commands, discharged to residential facility Patient's hospitalization was complicated by acute hypoxic respiratory failure multifactorial from aspiration pneumonia, fluid overload, pulmonary edema, required ICU admission, BiPAP therapy IV diuretics, broad-spectrum antibiotic therapy. Overall patient clinically improved, will be discharged on p.o. antibiotics, p.o. diuretics, currently on room air, with a close follow-up with primary care provider as outpatient. Orders aspiration ammonia, patient was seen by speech therapy, managed with antibiotic therapy, modified barium swallow completed, will be discharged with a dysphagia level 4 diet moderately thickened, work with speech therapy at residential facility, aspiration precautions Hospitalization was complicated with UTI, likely catheter associated UTI, managed with broad-spectrum antibiotic therapy, completed antibiotic therapy as inpatient Patient's hospitalization was complicated by C. difficile colitis, managed with p.o. vancomycin discharged on p.o. vancomycin Hospitalization was complicated by severe sepsis secondary bilateral pneumonia, enteritis, UTI, resolved Thrombocytopenia, continue to monitor Patient has a history of right lower extremity DVT, Eliquis was held due to persistent thrombocytopenia recurrent venous ultrasound negative for DVT. I had a detailed discussion with patient about risk and benefits of anticoagulant therapy, given his history of anemia, thrombocytopenia, history of liver cirrhosis discussed risk and benefits of anticoagulant therapy. After discussing the risk and benefits of anticoagulant therapy, patient and voiced understanding, all question answered, shared decision making agreed to discontinue Eliquis therapy. Patient and family are to watch out for calf pain calf swelling if so please come back to the emergency room. Physical Exam Const: COMMON NORMALS: no acute distress and patient oriented x3 Resp: COMMON NORMALS: normal respiratory effort, No retractions, No use of accessory muscles and clear to auscultation bilaterally AUSCULTATION: clear to auscultation bilaterally Cardio: COMMON NORMALS: regular rate, regular rhythm, S1 normal heart sound present and S2 normal heart sound present RATE: regular rate RHYTHM: regular rhythm HEART SOUNDS: S1 normal heart sound present and S2 normal heart sound present GI: COMMON NORMALS: Normal to inspection, nondistended, normoactive bowel sounds present and non-tender Extremity: COMMON NORMALS: no pedal edema Neuro: COMMON NORMALS: patient oriented x3 Psych: COMMON NORMALS: mental status grossly normal Urinary Catheter Management: Ramey: Cath Placed During This Visit: yes Reason for Continuing Indwelling Catheter: Accurate Measurement of Urinary Output in Critically Ill Patients Urinary Catheter Date of Insertion: 09/26/24 Urinary Catheter Time of Insertion: 09:29 Discharge Data Studies Completed and Pending Completed Studies During Hospitalization Category Date Time Status CT abdomen pelvis w con* [id number] Urgent Cat Scan 09/25/24 18:[address] head wo con* [id number] Routine Cat Scan 09/28/24 12:[address] head wo con* [id number] Routine Cat Scan 09/28/24 21:[address] head wo con* [id number] Stat Cat Scan 09/25/24 18:42 Completed CXRP [XR chest 1V portable [id number]] Stat Exams 09/25/24 21:03 Completed FL barium swallow modifd [id number] Routine Exams 10/02/24 11:22 Completed XR KUB portable [id number] Routine Exams 09/28/24 08:00 Completed XR abdomen 1V* [id number] Stat Exams 09/28/24 22:37 Completed XR chest 1V portable [id number] Routine Exams 09/30/24 16:40 Completed XR chest 1V portable [id number] Routine Exams 10/01/24 11:22 Completed XR chest 1V portable [id number] Stat Exams 09/25/24 18:16 Completed OVA and Parasites, Conc and PE Routine Lab 09/26/24 15:18 Completed Salmonella / Shigella / Campy Routine Lab 09/26/24 15:18 [place] [id number] Routine Ultrasound 10/01/24 16:08 Completed US abdomen lmt fluid [id number] Routine Ultrasound 09/26/24 11:38 Completed Pending at discharge Category Date Time Status C Reactive Protein AM LABS Lab 10/05/24 04:00 Ordered Complete Blood Count w/Auto AM LABS Lab 10/05/24 04:00 Ordered Comprehensive Metabolic Panel AM LABS Lab 10/05/24 04:00 Ordered Magnesium AM LABS Lab 10/05/24 04:00 Ordered NT Pro B Type Natriuretic Pept QAM Lab 10/05/24 06:00 Ordered Phosphorus AM LABS Lab 10/05/24 04:00 Ordered Procalcitonin AM LABS Lab 10/05/24 04:00 Ordered Sputum Culture and Gram Stain Stat Lab 09/26/24 11:38 Uncollected Radiology Impressions Abdomen/Pelvis CT 09/25/24 18:16 IMPRESSION: 1. There are multiple dilated loops of small bowel without transition point most compatible with an ileus/enteritis. 2. Hepatic cirrhosis with portal venous hypertension including splenomegaly and varices. 3. Bibasilar airspace disease concerning for pneumonia. Abdomen Ultrasound 09/26/24 11:38 IMPRESSION: No significant ascites. KUB X-Ray 09/28/24 08:00 Impression: Moderate generalized ileus. Head CT 09/28/24 21:33 IMPRESSION: No acute intracranial abnormality. Chronic microvascular ischemic changes. Abdomen X-Ray 09/28/24 22:37 IMPRESSION: Nasogastric tube with its tip in the region of stomach. Chest X-Ray 10/01/24 11:22 IMPRESSION: 1. Bilateral pulmonary infiltrates. There has been some improvement involving infiltrate in the RIGHT upper lobe but no other significant change. Modified Barium Swallow 10/02/24 11:22 IMPRESSION: 1. No evidence of aspiration. 2. Mild penetration into the laryngeal inlet when the patient ingested thin liquid and nectar consistency barium foodstuffs. 3. Retention of the barium tablet into the lower esophagus. The tablet was propelled into the stomach with additional swallows of thin liquid barium. A separate report with recommendations will follow from the speech therapy service. Laboratory Results WBC 3.79 10^3/uL (3.29-11.43) 10/04/24 04:31 RBC 3.14 10^6/uL (3.85-5.65) L 10/04/24 04:31 Hgb 10.40 g/dL (11.27-16.99) L 10/04/24 04:31 Hct 30.3 % (37-53) L 10/04/24 04:31 MCV 96.5 fl (82-101) 10/04/24 04:31 MCH 33.1 pg (27-33) H 10/04/24 04:31 MCHC 34.3 g/dL (30-55) 10/04/24 04:31 RDW 13.8 % (12.1-15.1) 10/04/24 04:31 Plt Count 54 10^3/cmm (157-399) L 10/04/24 04:31 MPV 12.4 fL (7.4-10.4) H 10/04/24 04:31 Neut % (Auto) 73.6 % 10/04/24 04:31 Lymph % (Auto) 16.9 % 10/04/24 04:31 [place] % (Auto) 4.2 % 10/04/24 04:31 Eos % (Auto) 4.5 % 10/04/24 04:31 Baso % (Auto) 0.5 % 10/04/24 04:31 Neut # (Auto) 2.79 10^3/uL (1.8-7.7) 10/04/24 04:31 Lymph # (Auto) 0.6 10^3/uL (0.8-4.8) L 10/04/24 04:31 [place] # (Auto) 0.2 10^3/uL (0.2-0.9) 10/04/24 04:31 Eos # (Auto) 0.2 10^3/uL (0.0-0.8) 10/04/24 04:31 Baso # (Auto) 0.0 10^3/uL (0.0-0.1) 10/04/24 04:31 Nucleated RBC % (auto) 0 % 10/04/24 04:31 Nucleated RBCs # 0.0 /100WBC 10/04/24 04:31 ESR 8 mm/hr (0-10) 09/30/24 05:22 PT 16.10 SECONDS (12.1-14.9) H 09/29/24 03:48 INR 1.21 (0.8-1.2) H 09/29/24 03:48 APTT 38.7 SECONDS (23.9-36.7) H 09/29/24 03:48 Specimen Type Arterial 09/25/24 21:04 Sample Site Radial, left 09/25/24 21:04 ABG pH 7.38 (7.35-7.45) 09/25/24 21:04 ABG pCO2 34.9 mmHg (35-45) L 09/25/24 21:04 ABG pO2 77.1 mmHg (80.0-100.0) L 09/25/24 21:04 ABG PO2/FiO2 Ratio 154 09/25/24 21:04 ABG HCO3 20.4 mmol/L (22-26) L 09/25/24 21:04 ABG O2 Saturation 95.4 09/25/24 21:04 ABG Base Excess -4.0 mmol/L (-2.0-2.0) L 09/25/24 21:04 Alexander Test Pos 09/25/24 21:04 A-a O2 Gradient 31.3 mmHg (5-10) H 09/25/24 21:04 Hematocrit 47.2 % (42-52) 09/25/24 21:04 Hgb O2 Saturation 93.7 % (95-100) L 09/25/24 21:04 Carboxyhemoglobin 2.0 %THgb (0.4-20.1) 09/25/24 21:04 Methemoglobin < 0.0 % (0.4-1.5) L 09/25/24 21:04 Total Hemoglobin 15.4 g/dL (14-18) 09/25/24 21:04 Sodium 141.0 mmol/L (131-143) 09/25/24 21:04 Potassium 4.3 mmol/L (3.5-5.0) 09/25/24 21:04 Glucose 140.0 mg/dL (70-115) H 09/25/24 21:04 Ionized Calcium 1.2 mmol/L (1.1-1.4) 09/25/24 21:04 O2 Delivery Device Bipap 09/25/24 21:04 FiO2 50.0 % 09/25/24 21:04 Senior Ruby Developer ID [email or web address] 09/25/24 21:04 Sodium 132 mmol/L (136-145) L 10/04/24 04:31 Potassium 4.0 mmol/L (3.5-5.1) 10/04/24 04:31 Chloride 99 mmol/L (98-107) 10/04/24 04:31 Carbon Dioxide 23 mmol/L (22-29) 10/04/24 04:31 Anion Gap 14.0 (5-19) 10/04/24 04:31 BUN 30 mg/dL (8-23) H 10/04/24 04:31 Creatinine 0.7 mg/dL (0.7-1.2) 10/04/24 04:31 GFR Calculation Not Reportable 10/04/24 04:31 Glucose 130 mg/dL (65-115) H 10/04/24 04:31 POC Glucose 220 mg/dL (70-110) H 10/04/24 11:05 Calculated Osmolality 282 mOsm/kg (285-295) L 10/04/24 04:31 Lactic Acid 2.5 mmol/L (0.5-2.2) H 09/25/24 18:37 Lactic Acid (Sepsis) 2.7 mmol/L (0.5-2.2) H 09/25/24 22:06 Lactate 1.5 mmol/L (0.5-2.2) 10/02/24 04:03 Calcium 8.1 mg/dL (8.5-10.5) L 10/04/24 04:31 Phosphorus 2.9 mg/dL (2.5-4.5) 10/04/24 04:31 Magnesium 1.8 mg/dL (1.7-2.3) 10/04/24 04:31 Total Bilirubin 1.4 mg/dL (0.15-1.2) H 10/04/24 04:31 Direct Bilirubin 1.40 mg/dL (0.00-0.30) H 09/29/24 03:45 AST 22 U/L (0-40) 10/04/24 04:31 ALT 14 U/L (0-41) 10/04/24 04:31 Alkaline Phosphatase 82 U/L (40-130) 10/04/24 04:31 Ammonia 16 umol/L (16-60) 10/02/24 04:03 Troponin T Baseline 20 ng/L (0-15) H 09/25/24 18:37 Troponin T 120 Minute 19.97 ng/L (0-15) H 09/25/24 20:50 Delta Troponin T -0.03 ABS# (0-10) L 09/25/24 20:50 Troponin T Hi Sens 6Hr 21.63 ng/L (0-15) H 09/26/24 00:25 Troponin T Hi Sens 6Hr Delta 1.63 ng/L (0-12) 09/26/24 00:25 C-Reactive Protein 86.8 mg/L (0.0-4.9) H 10/04/24 04:31 NT-Pro-B Natriuret Pep 668 pg/mL (0-125) H 10/04/24 04:31 Total Protein 4.7 g/dL (6.6-8.7) L 10/04/24 04:31 Albumin 2.5 g/dL (3.5-5.2) L 10/04/24 04:31 Globulin 2.2 g/dL (1.3-4.6) 10/04/24 04:31 Lipase 22 U/L (13-60) 09/25/24 18:37 Procalcitonin 0.40 ng/mL (0-0.5) 10/04/24 04:31 Urine Color Red (Yellow) A 09/28/24 09:57 Urine Appearance Cloudy (CLEAR) A 09/28/24 09:57 Urine pH 5.0 (5-7) 09/28/24 09:57 Ur Specific [place] 1.027 (1.005-1.030) 09/28/24 09:57 Urine Protein 1+ (Negative) A 09/28/24 09:57 Urine Glucose (UA) Negative (Normal) 09/28/24 09:57 Urine Ketones Negative (Negative) 09/28/24 09:57 Urine Blood 3+ (Negative) A 09/28/24 09:57 Urine Nitrate Positive (Negative) A 09/28/24 09:57 Urine Bilirubin 1+ (Negative) H 09/28/24 09:57 Urine Urobilinogen 0.2 mg/dL (Negative) 09/28/24 09:57 Ur Leukocyte Esterase 1+ (Negative) A 09/28/24 09:57 Urine RBC >100 /hpf (0-2) H 09/28/24 09:57 Urine WBC 11-20 /hpf (0-5) H 09/28/24 09:57 Ur Squamous Epith Cells 0-5 /hpf (0-5) 09/28/24 09:57 Amorphous Sediment Not Reportable 09/28/24 09:57 Urine Bacteria None seen /hpf (NONE) 09/28/24 09:57 Hyaline Casts 1.68 /lpf 09/28/24 09:57 Vancomycin Trough Cancelled 09/30/24 05:22 Adenovirus (PCR) Not detected (NOT DETECT) 09/30/24 08:56 C. pneumoniae DNA (PCR) Not detected (NOT DETECT) 09/30/24 08:56 C. difficile (PCR) Positive (Negative) H 09/27/24 10:29 Coronavirus (PCR) Negative (Negative) 09/28/24 08:45 Coronavirus 229E (PCR) Not detected (NOT DETECT) 09/30/24 08:56 Human Metapneumovir PCR Not detected (NOT DETECT) 09/30/24 08:56 Influenza A (H1) PCR Not detected (NOT DETECT) 09/30/24 08:56 Influenza A (PCR) Negative (Negative) 09/28/24 08:45 Influ A (H1/09) PCR Not detected (NOT DETECT) 09/30/24 08:56 Influenza A (H3) PCR Not detected (NOT DETECT) 09/30/24 08:56 Influenza Type A (PCR) Not detected (NOT DETECT) 09/30/24 08:56 Influenza Type B (PCR) Not detected (NOT DETECT) 09/30/24 08:56 M. pneumoniae (PCR) Not detected (NOT DETECT) 09/30/24 08:56 Parainfluenza 1 (PCR) Not detected (NOT DETECT) 09/30/24 08:56 Parainfluenza 2 (PCR) Not detected (NOT DETECT) 09/30/24 08:56 Parainfluenza 3 (PCR) Not detected (NOT DETECT) 09/30/24 08:56 Parainfluenza 4 (PCR) Not detected (NOT DETECT) 09/30/24 08:56 RSV (PCR) Negative (Negative) 09/28/24 08:45 RSV Type A (PCR) Not detected (NOT DETECT) 09/30/24 08:56 RSV Type B (PCR) Not detected (NOT DETECT) 09/30/24 08:56 Entero/Rhino (PCR) Not detected (NOT DETECT) 09/30/24 08:56 SARS-CoV-2 (PCR) Not detected (NOT DETECT) 09/30/24 08:56 Vitals Last Vital Signs Temp 98.0 F 10/04/24 07:14 Pulse 84 10/04/24 08:11 Resp 16 10/04/24 07:59 BP 107/62 10/04/24 07:14 Pulse Ox 92 10/04/24 07:59 O2 Del Method Nasal Cannula 10/04/24 07:59 O2 Flow Rate 2 10/04/24 07:59 FiO2 35 10/02/24 21:43 Discharge Plan Discharge Patient Disposition: Xfer SNF Condition: Stable Prescriptions: New magnesium L-lactate [Magtab] 84 mg Tablet Extended Release 84 mg PO DAILY 30 Days Qty: 30 0RF amoxicillin-pot clavulanate 875-125 mg Tablet 1 tab PO BID 5 Days Qty: 10 0RF insulin lispro [Humalog U-100 Insulin] 100 unit/mL Solution See Rx Instructions .ROUTE .COMPLEX Qty: 10 0RF Rx Instructions: Inject, subcut, 3 times daily, after meals, based on sliding scale provided vancomycin 125 mg Capsule 125 mg PO Q6H 6 Days Qty: 24 0RF potassium chloride [Klor-Con M20] 20 mEq tablet,ER particles/crystals 20 meq PO DAILY 30 Days Qty: 30 0RF Continued furosemide 40 mg tablet 40 mg PO DAILY gabapentin 600 mg tablet 600 mg PO TID lactulose 10 gram/15 mL solution 15 ml PO BID Rx Instructions: hold for severe diarrhea metformin 500 mg tablet 500 mg PO BID nadolol 20 mg tablet 20 mg PO DAILY pantoprazole 40 mg tablet,delayed release (DR/EC) 40 mg PO BID spironolactone 50 mg tablet 50 mg PO DAILY tamsulosin 0.4 mg capsule 0.4 mg PO DAILY trazodone 100 mg tablet 100 mg PO BEDTIME zolpidem 10 mg tablet 10 mg PO BEDTIME PRN (Reason: Sleep) multivitamin 1 tab PO DAILY Lamisil 1 applic topical BID PRN (Reason: fungal infection to feet) Rx Instructions: after vinegar soak triamcinolone acetonide 0.1 % Cream 1 applic TOPICAL TID PRN (Reason: Itching) Held rifaximin 550 mg PO BID Hold Instructions: Resume on 10/11/24. Discontinued Eliquis 5 mg tablet 5 mg PO BID Discharge Orders: Discharge Order (Routine); Ordered 10/04/24 Ordered By: Michele Hart Referrals: [facility] [Outside] Discharge Diet: Cardiac Discharge Activity: Resume usual activity Patient Instructions: Opioid Safety Activity Restrictions/Additional Instructions: -Please monitor your blood sugars closely -Monitor your blood sugars 3 times daily as after meals -Please record your blood sugars, and a blood sugar log -For your humalog -Please inject blood sugar after meals based on sliding scale provided -Do not inject insulin if you do not eat as hypoglycemia kills -This is a NovoLog sliding scale -Insulin sliding ?fingerstick? Insulin ?141-180?0 units/sq 181-220?2 units/sq ?221-260?4 units/sq ?261-300 6 units/sq ?301-350?8 units/sq ?351-400 10 units/sq ?401-450?12 units/sq >450? 14units/sq -If your blood sugar is greater than 500 go to the emergency room -If your blood sugar is less than 60 or at anytime you feel lightheaded or dizzy or diaphoretic or have chest palpitations check your blood sugar, and eat a hard candy or drink orange juice and go immediately to the emergency room -Remember hypoglycemia kills, so if his blood sugar is less than 60 we have to increase it by taking in a sugary meal such as a hard candy or orange juice and go to the emergency room -If you have any questions please call us where here to help -take po vancomycin for c diff colitis -Take antibiotics for pneumonia -Please monitor for aspiration risk, aspiration precautions, work with speech therapy, dysphagia level 4 diet, moderately thickened -Eliquis has been discontinued, please follow-up with primary care provider as outpatient monitor for DVTs Discharge Attestations Time Spent in Discharge Care*: greater than 30 min Quality Metrics Clinical Quality Measures [ No reported AMI, CVA or VTE this stay] Coding Level of Care Code 68688 Total time (in minutes) for Discharge: 45 Diagnoses Severe sepsis A41.9; R65.20 Enteritis K52.9 Pneumonia J18.9 Laterality: bilateral Lung location: lower lobe of lung Pneumonia type: due to unspecified organism Acute hypoxic respiratory failure J96.01 UTI (urinary tract infection) N39.0 Acute encephalopathy G93.40
[2024-10-04] MEDS: insulin lispro 100 unit/1 mL SUBCUT (12:23)
== END 2024-10-04 15:06 | disposition skilled nursing facility (03) | DRG 871 ==
LOC: ER 23:49 → ICU 09-26 02:40 → MEDSURG 10-03 16:46
PROVIDERS: Emergency Medicine; Admitting Provider Internal Medicine; Emergency Provider Physician Assistant; Visit Provider Family Medicine
DX: A41.9 Sepsis, unspecified organism (principal); J69.0 Pneumonitis due to inhalation of food and vomit; T83.518A Infection and inflammatory reaction due to other urinary catheter, initial encounter; J96.01 Acute respiratory failure with hypoxia; J81.0 Acute pulmonary edema; A04.72 Enterocolitis due to Clostridium difficile, not specified as recurrent; K76.6 Portal hypertension; E87.20 Acidosis, unspecified; R65.20 Severe sepsis without septic shock; Y73.8 Miscellaneous gastroenterology and urology devices associated with adverse incidents, not elsewhere classified; Y92.239 Unspecified place in hospital as the place of occurrence of the external cause; K76.82 Hepatic encephalopathy; K74.69 Other cirrhosis of liver; E87.70 Fluid overload, unspecified; D69.6 Thrombocytopenia, unspecified; R16.1 Splenomegaly, not elsewhere classified; I86.8 Varicose veins of other specified sites; E11.9 Type 2 diabetes mellitus without complications; R45.1 Restlessness and agitation; Z86.718 Personal history of other venous thrombosis and embolism; Z85.038 Personal history of other malignant neoplasm of large intestine; Z79.01 Long term (current) use of anticoagulants; Z79.84 Long term (current) use of oral hypoglycemic drugs
CPT/HCPCS: 36415; 36416; 36600; 51702; 70450; 71045; 74018; 74177; 74230; 76705; 80048; 80051; 80053; 80076; 80202; 81001; 82140; 82274; 82330; 82805; 82962; 83605; 83690; 83735; 83880; 84100; 84145; 84484; 85025; 85610; 85651; 85730; 86140; 87040; 87045; 87070; 87075; 87086; 87177; 87205; 87209; 87427; 87449; 87486; 87493; 87581; 87633; 87637; 92507; 92523; 92526; 92610; 92611; 93005; 93970; 94640; 94660; 94664; 96365; 96372; 96374; 96375; 96376; 97110; 97116; 97162; 97167; 97530; 97535; 99291; J0456; J0696; J1630; J1650; J1815; J1940; J2020; J2060; J2185; J2270; J2405; J2470; J2543; J3370; J3372; J3475; J3480; J3490; J7030; J7050; J7626; P9045

== ENCOUNTER → 2024-11-08 13:37 | Outpatient (BNVA) | payer MEDICARE, SELFPAY | PROVIDERS: Visit Provider Podiatrist Foot & Ankle Surgery | DX: E11.621 Type 2 diabetes mellitus with foot ulcer (principal); L97.522 Non-pressure chronic ulcer of other part of left foot with fat layer exposed; L60.3 Nail dystrophy; G62.9 Polyneuropathy, unspecified; E11.42 Type 2 diabetes mellitus with diabetic polyneuropathy; Z79.84 Long term (current) use of oral hypoglycemic drugs | CPT/HCPCS: 11721; 99203 ==

== ENCOUNTER → 2024-11-15 08:23 | Outpatient (BNVA) | payer MEDICARE, SELFPAY | PROVIDERS: Visit Provider Podiatrist Foot & Ankle Surgery | DX: E11.621 Type 2 diabetes mellitus with foot ulcer (principal); L97.522 Non-pressure chronic ulcer of other part of left foot with fat layer exposed; L60.3 Nail dystrophy; G62.9 Polyneuropathy, unspecified; E11.42 Type 2 diabetes mellitus with diabetic polyneuropathy; Z79.4 Long term (current) use of insulin; Z79.84 Long term (current) use of oral hypoglycemic drugs | CPT/HCPCS: 99214 ==

== ENCOUNTER → 2024-11-22 08:31 | Outpatient (BNVA) | payer MEDICARE, SELFPAY | PROVIDERS: Visit Provider Podiatrist Foot & Ankle Surgery | DX: E11.621 Type 2 diabetes mellitus with foot ulcer (principal); L97.522 Non-pressure chronic ulcer of other part of left foot with fat layer exposed; L60.3 Nail dystrophy; G62.9 Polyneuropathy, unspecified; E11.42 Type 2 diabetes mellitus with diabetic polyneuropathy; Z79.84 Long term (current) use of oral hypoglycemic drugs; Z79.4 Long term (current) use of insulin | CPT/HCPCS: 99213 ==

== ENCOUNTER → 2024-11-29 08:27 | Outpatient (BNVA) | payer MEDICARE, SELFPAY | PROVIDERS: PCP Internal Medicine; Visit Provider Podiatrist Foot & Ankle Surgery | DX: E11.621 Type 2 diabetes mellitus with foot ulcer (principal); L97.522 Non-pressure chronic ulcer of other part of left foot with fat layer exposed; L60.3 Nail dystrophy; G62.9 Polyneuropathy, unspecified; E11.42 Type 2 diabetes mellitus with diabetic polyneuropathy; Z79.4 Long term (current) use of insulin | CPT/HCPCS: 99213 ==

== ENCOUNTER → 2024-12-06 08:50 | Outpatient (BNVA) | payer MEDICARE, SELFPAY | PROVIDERS: PCP Internal Medicine; Visit Provider Podiatrist Foot & Ankle Surgery | DX: E11.621 Type 2 diabetes mellitus with foot ulcer (principal); L97.522 Non-pressure chronic ulcer of other part of left foot with fat layer exposed; L60.3 Nail dystrophy; G62.9 Polyneuropathy, unspecified; E11.42 Type 2 diabetes mellitus with diabetic polyneuropathy; Z79.4 Long term (current) use of insulin | CPT/HCPCS: 99213 ==

== ENCOUNTER → 2024-12-13 08:55 | Outpatient (BNVA) | payer MEDICARE, SELFPAY | PROVIDERS: PCP Internal Medicine; Visit Provider Podiatrist Foot & Ankle Surgery | DX: E11.621 Type 2 diabetes mellitus with foot ulcer (principal); L60.3 Nail dystrophy; G62.9 Polyneuropathy, unspecified; L97.522 Non-pressure chronic ulcer of other part of left foot with fat layer exposed; E11.42 Type 2 diabetes mellitus with diabetic polyneuropathy; Z79.4 Long term (current) use of insulin | CPT/HCPCS: 99213 ==

== ENCOUNTER → 2024-12-20 09:13 | Outpatient (BNVA) | payer MEDICARE, SELFPAY | PROVIDERS: PCP Internal Medicine; Visit Provider Podiatrist Foot & Ankle Surgery | DX: E11.621 Type 2 diabetes mellitus with foot ulcer (principal); L97.522 Non-pressure chronic ulcer of other part of left foot with fat layer exposed; L60.3 Nail dystrophy; G62.9 Polyneuropathy, unspecified; M20.32 Hallux varus (acquired), left foot; E11.42 Type 2 diabetes mellitus with diabetic polyneuropathy; Z79.4 Long term (current) use of insulin | CPT/HCPCS: 28011; 99214 ==

== ENCOUNTER 2024-12-25 13:05 | Outpatient (CLI) | payer MEDICARE, SELFPAY | END 2024-12-25 13:06 | disposition home or self-care (01) | LOC: SLEEP 13:09 | PROVIDERS: PCP Internal Medicine; Visit Provider Internal Medicine | DX: G47.33 Obstructive sleep apnea (adult) (pediatric) (principal) | CPT/HCPCS: G0399 ==

== ENCOUNTER → 2024-12-31 14:53 | Outpatient (BNVA) | payer MEDICARE, SELFPAY | PROVIDERS: PCP Internal Medicine; Visit Provider Podiatrist Foot & Ankle Surgery | DX: E11.621 Type 2 diabetes mellitus with foot ulcer (principal); L97.509 Non-pressure chronic ulcer of other part of unspecified foot with unspecified severity; L60.3 Nail dystrophy; E11.42 Type 2 diabetes mellitus with diabetic polyneuropathy; M20.30 Hallux varus (acquired), unspecified foot; Z98.890 Other specified postprocedural states | CPT/HCPCS: 99024 ==

== ENCOUNTER → 2025-01-11 10:54 | Outpatient (BNVA) | payer MEDICARE, SELFPAY | PROVIDERS: PCP Internal Medicine; Visit Provider Podiatrist Foot & Ankle Surgery | DX: E11.621 Type 2 diabetes mellitus with foot ulcer (principal); L97.522 Non-pressure chronic ulcer of other part of left foot with fat layer exposed; G62.9 Polyneuropathy, unspecified; E11.42 Type 2 diabetes mellitus with diabetic polyneuropathy; L03.116 Cellulitis of left lower limb; Z79.4 Long term (current) use of insulin | CPT/HCPCS: 99214 ==

== ENCOUNTER → 2025-01-17 14:54 | Outpatient (BNVA) | payer MEDICARE, SELFPAY | PROVIDERS: PCP Internal Medicine; Visit Provider Podiatrist Foot & Ankle Surgery | DX: E11.621 Type 2 diabetes mellitus with foot ulcer (principal); L97.522 Non-pressure chronic ulcer of other part of left foot with fat layer exposed; G62.9 Polyneuropathy, unspecified; M20.42 Other hammer toe(s) (acquired), left foot; E11.42 Type 2 diabetes mellitus with diabetic polyneuropathy; M20.32 Hallux varus (acquired), left foot | CPT/HCPCS: 99214 ==

== ENCOUNTER 2025-01-22 10:32 | Oncology outpatient (recurring) (ONCR) | payer MEDICARE, SELFPAY ==
[2025-01-14 16:59] LABS: Basophils % 0.4 %; Eosinophils # 0.1 10^3/uL (0.0-0.8); Eosinophils % 2.2 %; Hematocrit 37.7 % (37-53); Lymphocytes # 0.6 10^3/uL (0.8-4.8); Lymphocytes % 26.3 %; Mean Corpuscular HGB Conc 32.9 g/dL (30-55); Mean Corpuscular Hemoglobin 32.4 pg (27-33); Mean Corpuscular Volume 98.4 fl (82-101); Mean Platelet Volume 11.6 fL (7.4-10.4); Monocytes # 0.1 10^3/uL (0.2-0.9); Monocytes % 5.7 %; Neutrophils # 1.49 10^3/uL (1.8-7.7); Neutrophils % 65.4 %; Nucleated Red Blood Cells % 0 %; Platelet Count 45 10^3/cmm (157-399); Red Blood Count 3.83 10^6/uL (3.85-5.65); Red Cell Distribution Width 15.9 % (12.1-15.1); White Blood Count 2.28 10^3/uL (3.29-11.43)
[2025-01-14 17:36] LABS: Alanine Aminotransferase 12 U/L (0-41); Albumin Level 3.8 g/dL (3.5-5.2); Alkaline Phosphatase 140 U/L (40-130); Anion Gap 16.5 (5-19); Aspartate Amino Transferase 24 U/L (0-40); Blood Urea Nitrogen 19 mg/dL (8-23); Calcium 8.8 mg/dL (8.5-10.5); Carbon Dioxide 24 mmol/L (22-29); Chloride 108 mmol/L (98-107); Creatinine Clr Calc Pharmacy 103.6785; Globulin 2.2 g/dL (1.3-4.6); Glucose 140 mg/dL (65-115); Lactate Dehydrogenase 230 U/L (135-225); Osmolality Calculated 303 mOsm/kg (285-295); Potassium 4.5 mmol/L (3.5-5.1); Sodium 144 mmol/L (136-145); Total Bilirubin 1.3 mg/dL (0.15-1.2)
[2025-01-14 19:11] LABS: Immunoglobulin IGA 221 mg/dL (70-400); Immunoglobulin IGG 925 mg/dL (700-1600); Immunoglobulin IGM 32 mg/dL (40-230)
[2025-01-18 09:50] LABS: ABNORMAL PROTEIN BAND 1 0.2 g/dL (NONE DETECTED); ALBUMIN 3.8 g/dL (3.8-4.8); ALPHA 1 GLOBULIN 0.3 g/dL (0.2-0.3); ALPHA 2 GLOBULIN 0.5 g/dL (0.5-0.9); BETA 1 GLOBULIN 0.3 g/dL (0.4-0.6); BETA 2 GLOBULIN 0.2 g/dL (0.2-0.5); GAMMA GLOBULIN 0.9 g/dL (0.8-1.7)
[2025-01-19 03:29] LABS: Beta 2 Glycoprotein IGA <2.0 U/mL (<20.0); Beta 2 Glycoprotein IGG <2.0 U/mL (<20.0); Beta 2 Glycoprotein IGM <2.0 U/mL (<20.0)
[2025-01-24 17:21] LABS: CREATININE, 24 HOUR URINE 1.18 g/24 h (0.50-2.15); PROTEIN, TOTAL, 24 HR UR 100 mg/24 h (<150); Protein/Creatinine Ratio 0.085 (<0.100); Protein/Creatinine Ratio 85 mg/g creat (<100)
[2025-01-27 15:59] LABS: ALBUMIN 100 %; ALPHA-1-GLOBULINS 0 %; ALPHA-2-GLOBULINS 0 %; BETA GLOBULINS 0 %; GAMMA GLOBULINS 0 %
== END 2025-02-02 23:59 | disposition home or self-care (01) ==
PROVIDERS: PCP Internal Medicine; Visit Provider Internal Medicine
DX: Z53.9 Procedure and treatment not carried out, unspecified reason (principal); D47.2 Monoclonal gammopathy
CPT/HCPCS: 36415; 80053; 82784; 83615; 84155; 84156; 84165; 84166; 85025; 86146; 86334; 86335; 99204

== ENCOUNTER 2025-02-14 13:27 | Oncology outpatient (recurring) (ONCR) | payer MEDICARE, SELFPAY ==
[2025-02-14 20:21] LABS: C.Diff PCR (Lab) POSITIVE (Negative)
[2025-02-14 21:06] LABS: Clostridioides Difficile Toxin NEGATIVE (Negative)
== END 2025-03-04 23:59 | disposition home or self-care (01) ==
PROVIDERS: PCP Internal Medicine; Visit Provider Internal Medicine Medical Oncology
DX: R19.7 Diarrhea, unspecified (principal); D47.2 Monoclonal gammopathy; D70.9 Neutropenia, unspecified; G62.9 Polyneuropathy, unspecified; K74.60 Unspecified cirrhosis of liver; R16.1 Splenomegaly, not elsewhere classified; Z85.038 Personal history of other malignant neoplasm of large intestine; Z90.89 Acquired absence of other organs
CPT/HCPCS: 11721; 28011; 87324; 87493; 99214; A6219; J9999

== ENCOUNTER → 2025-02-20 10:10 | Outpatient (BNVA) | payer MEDICARE, SELFPAY | PROVIDERS: PCP Internal Medicine; Visit Provider Podiatrist Foot & Ankle Surgery | DX: E11.621 Type 2 diabetes mellitus with foot ulcer (principal); L60.3 Nail dystrophy; M20.42 Other hammer toe(s) (acquired), left foot; G62.9 Polyneuropathy, unspecified; M20.30 Hallux varus (acquired), unspecified foot; L97.522 Non-pressure chronic ulcer of other part of left foot with fat layer exposed; E11.42 Type 2 diabetes mellitus with diabetic polyneuropathy; M20.32 Hallux varus (acquired), left foot | CPT/HCPCS: 99024 ==

== ENCOUNTER 2025-04-24 07:00 | Emergency (ER) | payer MEDICARE, SELFPAY ==
[2025-04-24] VITALS (7 sets, daily range): BP systolic 112–138; BP diastolic 55–81; PULSE 66–83; RESP 14–16; TEMP 37.1; O2SAT 90–94
--- NOTE | 2025-04-24 07:12 | CT_ITS ---
WS: [id number] CT HEAD NONCONTRAST HISTORY: Trauma TECHNIQUE: Contiguous axial imaging performed through the brain. Bone and soft tissue windows. Sagittal and coronal reformats reviewed. All CT scans at [facility] use at least one of these dose optimization techniques: automated exposure control; mA and/or kV adjustment per patient size (includes targeted exams where dose is matched to clinical indication); or iterative reconstruction. DLP: 1348.08 mGy.cm COMPARISON: 09/28/2024 Significant artifact through the skull base secondary to patient's dental amalgam. Mild cerebral and cerebellar atrophy with mild small vessel disease. No acute intracranial hemorrhage. No mass effect. No edema. Ventricles: Normal size with no hydrocephalus. Paranasal sinuses: As visualized are clear. Mastoid air cells: Well pneumatized. Calvarium and scalp: Skull is intact with no soft tissue edema or swelling. CT/CT head wo con* [id number] IMPRESSION: 1. No acute intracranial hemorrhage or edema. 2. Mild atrophy and small vessel disease. 3. No skull fracture.
--- NOTE | 2025-04-24 07:17 | W.ED.FALL ---
HPI - Fall General: Chief Complaint: Fall Stated Complaint: FALL Time Seen by Provider: 04/24/25 07:12 History of Present Illness: 69-year-old male presents emergency room via EMS after falling in the shower. His tried to help him up for about an hour before they finally called 911. Patient did report hitting his head there is no loss consciousness no vomiting. He is not on any anticoagulants. There is a small laceration on his right heel. No chest pain no abdominal pain. Fall was due to slipping while in the shower. Associated symptoms-after fall: Denies abdominal pain, chest pain or neck pain Related Data Home Medications ?Medication ?Instructions ?Recorded ?Confirmed furosemide 40 mg tablet 40 mg PO DAILY 09/26/24 04/24/25 gabapentin 600 mg tablet 600 mg PO TID 09/26/24 04/24/25 nadolol 20 mg tablet 20 mg PO DAILY 09/26/24 04/24/25 pantoprazole 40 mg tablet,delayed 40 mg PO BID 09/26/24 04/24/25 release spironolactone 50 mg tablet 50 mg PO DAILY 09/26/24 04/24/25 tamsulosin 0.4 mg capsule 0.4 mg PO DAILY 09/26/24 04/24/25 trazodone 100 mg tablet 100 mg PO BEDTIME 09/26/24 04/24/25 diphenoxylate-atropine 2.5 1 tab PO BID PRN Diarrhea 04/24/25 04/24/25 mg-0.025 mg tablet metformin 500 mg tablet 500 mg PO BID 04/24/25 04/24/25 Allergies Allergy/AdvReac Type Severity Reaction Status Date / Time No Known Allergies Allergy Verified 02/20/25 10:13 Review of Systems Const: Denies: fever(s) or chills Card: Denies: chest pain Resp: Denies: dyspnea GI: Denies: abdominal pain : Denies: dysuria, urinary frequency or urinary urgency Musc: Denies: neck pain or back pain Skin/Breast: Denies: rash PFSH ED PFSH: Medical History (Updated 04/24/25 @ 10:38 by Jones Koroma DO) Peripheral neuropathy Type 2 diabetes mellitus Monoclonal gammopathy of undetermined significance Social History Smoking and tobacco/nicotine status: never used tobacco/nicotine Physical Exam Const: COMMON NORMALS: no acute distress GENERAL APPEARANCE: cooperative and comfortable ORIENTATION/CONSCIOUSNESS: Yes awake, Yes oriented to person, Yes oriented to place and Yes oriented to time HENMT: COMMON NORMALS: normocephalic, atraumatic and hearing grossly normal bilaterally HEAD & SCALP: normocephalic and atraumatic Resp: COMMON NORMALS: normal respiratory effort, No retractions, No use of accessory muscles and clear to auscultation bilaterally AUSCULTATION: clear to auscultation bilaterally Cardio: COMMON NORMALS: regular rate, regular rhythm and No murmurs present (Cardio) RATE: regular rate RHYTHM: regular rhythm GI: COMMON NORMALS: Soft to palpation and No hepatosplenomegaly present AUSCULTATION: Yes normoactive bowel sounds PALPATION: Yes Soft to palpation, No Tenderness to palpation present (GI), No Guarding due to palpation present (GI) and Yes No hepatosplenomegaly present Extremity: COMMON NORMALS: normal to inspection, capillary refill normal, no clubbing, cyanosis or edema, no calf tenderness and no pedal edema Neuro: SENSORIUM/ORIENTATION: Yes oriented to person, Yes oriented to place and Yes oriented to time Skin: COMMON NORMALS: no rashes or lesions noted GENERAL SKIN EXAM: no rashes or lesions noted Procedures Laceration Laceration 1: Site: lower extremity Side (If applicable): left (Foot) Size (cm): 6 Description: linear Depth: simple, single layer Local Anesthetic: lidocaine 1% and with epi Amount of anesthesia used (mL): 3 Pre-repair: irrigated extensively Skin layer closed with: other (Prolene) Size (cm): 4-0 Number of sutures: 1 Technique: running Course Vital Signs: Vital signs: Vital Signs Temperature 98.7 F 04/24/25 07:02 Pulse Rate 67 04/24/25 10:30 Respiratory Rate 16 04/24/25 10:30 Blood Pressure 120/59 04/24/25 10:30 Pulse Oximetry 94 04/24/25 10:30 Oxygen Delivery Me thod Room Air 04/24/25 10:30 MDM - Fall Medical Decision Making CT head is negative. Will discharge patient home wound care instructions given apply topical antibiotic ointment to the wound until healed sutures removed in 10 to 14 days [facility] or primary care doctor can remove the sutures. Other labs consistent with previously known underlying diagnosis Lab Data I reviewed the patient's lab results. 04/24/25 08:21 04/24/25 08:[address] 04/24/25 07:12 IMPRESSION: 1. No acute intracranial hemorrhage or edema. 2. Mild atrophy and small vessel disease. 3. No skull fracture. Laboratory Results WBC 2.51 10^3/uL (3.29-11.43) L 04/24/25 08:21 RBC 3.76 10^6/uL (3.85-5.65) L 04/24/25 08:21 Hgb 12.20 g/dL (11.27-16.99) 04/24/25 08:21 Hct 36.4 % (37-53) L 04/24/25 08:21 MCV 96.8 fl (82-101) 04/24/25 08:21 MCH 32.4 pg (27-33) 04/24/25 08:21 MCHC 33.5 g/dL (30-55) 04/24/25 08:21 RDW 15.1 % (12.1-15.1) 04/24/25 08:21 Plt Count 35 10^3/cmm (157-399) L 04/24/25 08:21 MPV 11.3 fL (7.4-10.4) H 04/24/25 08:21 Neut % (Auto) 81.6 % 04/24/25 08:21 Lymph % (Auto) 12.0 % 04/24/25 08:21 [place] % (Auto) 5.6 % 04/24/25 08:21 Eos % (Auto) 0.4 % 04/24/25 08:21 Baso % (Auto) 0.0 % 04/24/25 08:21 Neut # (Auto) 2.05 10^3/uL (1.8-7.7) 04/24/25 08:21 Lymph # (Auto) 0.3 10^3/uL (0.8-4.8) L 04/24/25 08:21 [place] # (Auto) 0.1 10^3/uL (0.2-0.9) L 04/24/25 08:21 Eos # (Auto) 0.0 10^3/uL (0.0-0.8) 04/24/25 08:21 Baso # (Auto) 0.0 10^3/uL (0.0-0.1) 04/24/25 08:21 Nucleated RBC % (auto) 0 % 04/24/25 08:21 Nucleated RBCs # 0.0 /100WBC 04/24/25 08:21 Sodium 138 mmol/L (136-145) 04/24/25 08:21 Potassium 3.9 mmol/L (3.5-5.1) 04/24/25 08:21 Chloride 105 mmol/L (98-107) 04/24/25 08:21 Carbon Dioxide 21 mmol/L (22-29) L 04/24/25 08:21 Anion Gap 15.9 (5-19) 04/24/25 08:21 BUN 23 mg/dL (8-23) 04/24/25 08:21 Creatinine 1.0 mg/dL (0.7-1.2) 04/24/25 08:21 GFR Calculation Not Reportable 04/24/25 08:21 Glucose 128 mg/dL (65-115) H 04/24/25 08:21 Calculated Osmolality 291 mOsm/kg (285-295) 04/24/25 08:21 Calcium 9.1 mg/dL (8.5-10.5) 04/24/25 08:21 Total Bilirubin 2.5 mg/dL (0.15-1.2) H 04/24/25 08:21 AST 26 U/L (0-40) 04/24/25 08:21 ALT 12 U/L (0-41) 04/24/25 08:21 Alkaline Phosphatase 118 U/L (40-130) 04/24/25 08:21 Total Protein 6.5 g/dL (6.6-8.7) L 04/24/25 08:21 Albumin 4.0 g/dL (3.5-5.2) 04/24/25 08:21 Globulin 2.5 g/dL (1.3-4.6) 04/24/25 08:21 Urine Color Yellow (Yellow) 04/24/25 09:06 Urine Appearance Cloudy (CLEAR) A 04/24/25 09:06 Urine pH 6.5 (5-7) 04/24/25 09:06 Ur Specific Speer 1.022 (1.005-1.030) 04/24/25 09:06 Urine Protein Negative (Negative) 04/24/25 09:06 Urine Glucose (UA) Negative (Normal) 04/24/25 09:06 Urine Ketones Trace (Negative) 04/24/25 09:06 Urine Blood Non-haemolysed trace (Negative) 04/24/25 09:06 Urine Nitrate Negative (Negative) 04/24/25 09:06 Urine Bilirubin Negative (Negative) 04/24/25 09:06 Urine Urobilinogen 1.0 mg/dL (Negative) 04/24/25 09:06 Ur Leukocyte Esterase 2+ (Negative) A 04/24/25 09:06 Urine RBC 0-4 /hpf (0-2) H 04/24/25 09:06 Urine WBC 5-10 /hpf (0-5) H 04/24/25 09:06 Ur Squamous Epith Cells 0-4 /hpf (0-5) H 04/24/25 09:06 Amorphous Sediment Not Reportable 04/24/25 09:06 Urine Bacteria Trace /hpf (NONE) 04/24/25 09:06 Hyaline Casts 0-4 /lpf H 04/24/25 09:06 Urine Mucus 1+ /hpf 04/24/25 09:06 All radiology interpretation(s) finalized by discharge Discharge Plan Discharge Patient Disposition: Home Clinical Impression: Fall, Laceration, Peripheral neuropathy Condition: Stable Prescriptions: No Action furosemide 40 mg tablet 40 mg PO DAILY gabapentin 600 mg tablet 600 mg PO TID nadolol 20 mg tablet 20 mg PO DAILY pantoprazole 40 mg tablet,delayed release (DR/EC) 40 mg PO BID spironolactone 50 mg tablet 50 mg PO DAILY tamsulosin 0.4 mg capsule 0.4 mg PO DAILY trazodone 100 mg tablet 100 mg PO BEDTIME metformin 500 mg tablet 500 mg PO BID diphenoxylate-atropine 2.5-0.025 mg tablet 1 tab PO BID PRN (Reason: Diarrhea) Discharge Orders: Discharge ED (Routine); Ordered 04/24/25 Ordered By: Jones Koroma Referrals: Faiza Carson MD [Primary Care Provider, Internal Medicine] Discharge Diet: Usual diet Discharge Activity: Resume usual activity Patient Instructions: Opioid Safety, Pain Management, Patient Portal & Mirza Instructions Activity Restrictions/Additional Instructions: Thank you for choosing [facility] for your healthcare needs today. It is very important that you follow up as instructed or that you return to the Emergency Department should you have concerns or if your condition changes or worsens in any way. You were seen in the emergency room with complaints after a fall. CT of your head was negative there was a laceration on your foot which was sutured. The sutures should be removed in 10 to 14 days a [facility] or your primary care doctor can do this. 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 Print Language: Swiss Coding Level of Care Code ED Automation Controls Specialist for Migue Pelaez
[2025-04-24 08:28] LABS: Hematocrit 36.4 % (37-53); Hemoglobin 12.20 g/dL (11.27-16.99); Mean Corpuscular HGB Conc 33.5 g/dL (30-55); Mean Corpuscular Hemoglobin 32.4 pg (27-33); Mean Corpuscular Volume 96.8 fl (82-101); Nucleated Red Blood Cells % 0 %; Platelet Count 35 10^3/cmm (157-399); Red Blood Count 3.76 10^6/uL (3.85-5.65); White Blood Count 2.51 10^3/uL (3.29-11.43)
[2025-04-24 08:45] LABS: Alanine Aminotransferase 12 U/L (0-41); Albumin Level 4.0 g/dL (3.5-5.2); Alkaline Phosphatase 118 U/L (40-130); Anion Gap 15.9 (5-19); Aspartate Amino Transferase 26 U/L (0-40); Blood Urea Nitrogen 23 mg/dL (8-23); Calcium 9.1 mg/dL (8.5-10.5); Carbon Dioxide 21 mmol/L (22-29); Chloride 105 mmol/L (98-107); Creatinine Clr Calc Pharmacy 91.2241; Globulin 2.5 g/dL (1.3-4.6); Glucose 128 mg/dL (65-115); Osmolality Calculated 291 mOsm/kg (285-295); Potassium 3.9 mmol/L (3.5-5.1); Sodium 138 mmol/L (136-145); Total Protein 6.5 g/dL (6.6-8.7)
[2025-04-24 09:23] LABS: Glucose Urine UA Negative (Normal); Nitrate Urine Negative (Negative); Specific Gravity, Urine 1.022 (1.005-1.030)
[2025-04-24 09:47] LABS: Add Urine Microscopic? YES; UA Manual Slide Review YES
--- NOTE | 2025-04-24 10:00 | PC.PHAR ---
Pt uses [facility] and [facility] mail order pharmacy. Pt states he does not take Metformin 500mg bid from [facility] but they still have active rx last filled 01/09/25 90ds. They also have Zolpidem 10mg at prn last fill 10/23/24 90ds. Furosemide 40mg and Nadolol 20mg are ready for tack picker at [facility].
== END 2025-04-24 11:15 | disposition home or self-care (01) ==
PROVIDERS: Emergency Provider Family Medicine; PCP Internal Medicine
DX: S91.312A Laceration without foreign body, left foot, initial encounter (principal); E11.42 Type 2 diabetes mellitus with diabetic polyneuropathy; Z79.84 Long term (current) use of oral hypoglycemic drugs; W18.2XXA Fall in (into) shower or empty bathtub, initial encounter
CPT/HCPCS: 12002; 36415; 70450; 80053; 81001; 85025; 99284; 99291

== ENCOUNTER 2025-04-24 21:15 | Observation (INO) | payer MEDICARE, SELFPAY ==
[2025-04-24 21:21] VITALS: BP 94/52; PULSE 56; RESP 16; TEMP 36.9; O2SAT 95; BMI 27.2
[2025-04-24 21:59] VITALS: BP 122/56; PULSE 95; O2SAT 95
[2025-04-24 22:02] VITALS: BP 122/56; PULSE 57; O2SAT 95
--- NOTE | 2025-04-24 22:34 | CTR_ITS ---
PROCEDURE INFORMATION: Exam: CT Head Without Contrast Exam date and time: 04/24/2025 11:23 PM Age: 69 years old Clinical indication: Altered mental status/memory loss; Additional info: Altered ms TECHNIQUE: Imaging protocol: Computed tomography of the head without contrast. Radiation optimization: All CT scans at this facility use at least one of these dose optimization techniques: automated exposure control; mA and/or kV adjustment per patient size (includes targeted exams where dose is matched to clinical indication); or iterative reconstruction. COMPARISON: CT head wo con* [id number] 04/24/2025 7:59 AM RADIATION DOSE METRICS: Total DLP (mGy-cm): 1364.08 FINDINGS: Brain: No acute intracranial hemorrhage or mass effect. There is mild decreased attenuation in the periventricular white matter, likely from microvascular disease. No definite acute infarct by CT. MRI would be more sensitive/specific for detection, as clinically directed. Cerebral ventricles: Ventricle size is normal for age. Paranasal sinuses: Included paranasal sinuses are essentially clear. Mastoid air cells: No significant acute finding. Bones: No definite acute skull fracture. Soft tissues: No significant acute finding. Vasculature: Vascular calcifications in the internal carotid arteries. CT/CT head wo con* [id number] IMPRESSION: 1. No acute intracranial hemorrhage or mass effect. 2. Changes of microvascular disease. 3. No definite acute infarct by CT, see above. 4. Other findings discussed above.
[2025-04-24 23:52] VITALS: BP 125/61; PULSE 66; O2SAT 96
[2025-04-24 23:52] LABS: Ammonia 25 umol/L (16-60)
[2025-04-25] VITALS (34 sets, daily range): BP systolic 102–147; BP diastolic 42–82; PULSE 54–98; RESP 10–18; TEMP 36.2–36.7; O2SAT 90–99
--- NOTE | 2025-04-25 01:29 | W.ED.FALL ---
HPI - Fall General: Chief Complaint: Fall Stated Complaint: FALL, SKIN ABRASIONS, STITCHES Time Seen by Provider: 04/24/25 21:19 History of Present Illness: This patient is a 69-year-old white male who presents to the emergency department for evaluation after a fall. He is here with his son. Patient evidently fell tonight when he was getting out of bed. Sustained a skin tear to the left elbow. He was seen yesterday morning by Dr. Sanchez after falling. He sustained a small laceration to the right heel which was sutured. Patient's son is concerned that his father has been getting progressively weak and with the frequent falling they are having difficulty taking care of him at home. His has dementia and she is unable to care for him appropriately. Son is requesting admission with possible placement. Patient states that he has been losing his balance quite a bit recently and just gets progressively weak. He has a blood disorder which has been evaluated by oncology. He has leukopenia and thrombocytopenia. Also has a history of neuropathy and VIVAS. He was on lactulose but that was stopped 6 weeks ago. Related Data Home Medications ?Medication ?Instructions ?Recorded ?Confirmed furosemide 40 mg tablet 40 mg PO DAILY 09/26/24 04/24/25 gabapentin 600 mg tablet 600 mg PO TID 09/26/24 04/24/25 nadolol 20 mg tablet 20 mg PO DAILY 09/26/24 04/24/25 pantoprazole 40 mg tablet,delayed 40 mg PO BID 09/26/24 04/24/25 release spironolactone 50 mg tablet 50 mg PO DAILY 09/26/24 04/24/25 tamsulosin 0.4 mg capsule 0.4 mg PO DAILY 09/26/24 04/24/25 trazodone 100 mg tablet 100 mg PO BEDTIME 09/26/24 04/24/25 diphenoxylate-atropine 2.5 1 tab PO BID PRN Diarrhea 04/24/25 04/24/25 mg-0.025 mg tablet metformin 500 mg tablet 500 mg PO BID 04/24/25 04/24/25 Allergies Allergy/AdvReac Type Severity Reaction Status Date / Time latex Allergy ADR-Itching Verified 04/24/25 21:29 morphine Allergy ADR-Anxiety Verified 04/24/25 21:29 Review of Systems General: Reports: 10 or more systems reviewed and unremarkable except in HPI and below Const: Reports: other (Generalized weakness) PFS ED PFSH: Medical History (Updated 04/25/25 @ 01:35 by Des Zuniga MD) Peripheral neuropathy Type 2 diabetes mellitus Monoclonal gammopathy of undetermined significance Social History Smoking and tobacco/nicotine status: never used tobacco/nicotine Physical Exam Narrative: EXAM NARRATIVE: Patient does appear to be somewhat lethargic with generalized weakness. Const: COMMON NORMALS: no acute distress, patient oriented x3 and no limitations GENERAL APPEARANCE: cooperative and comfortable HENMT: COMMON NORMALS: normocephalic, atraumatic, Normal nasal mucous membranes and turbinates present, moist oral mucous membranes and oropharynx normal HEAD & SCALP: normal to inspection, normocephalic and atraumatic FACE & SINUS: normal facial exam NOSE: Normal nasal mucous membranes and turbinates present Eye: COMMON NORMALS: Equal, round and reactive pupils present, EOMs intact bilaterally and conjunctivae normal GENERAL EYE: appearance normal, both eyes and all related structures CONJUNCTIVA: Yes conjunctivae normal PUPIL: Yes Equal, round and reactive pupils present Neck/C-Spine: COMMON NORMALS: supple and no JVD Chest: COMMONS NORMALS: normal inspection of the chest Resp: COMMON NORMALS: normal respiratory effort and clear to auscultation bilaterally AUSCULTATION: clear to auscultation bilaterally Cardio: COMMON NORMALS: no JVD, regular rate, regular rhythm, No gallops present (Cardio), No murmurs present (Cardio) and No rub (Cardio) RATE: regular rate RHYTHM: regular rhythm GI: COMMON NORMALS: Normal to inspection, nondistended, normoactive bowel sounds present, Soft to palpation and non-tender AUSCULTATION: Yes normoactive bowel sounds PALPATION: Yes Soft to palpation : COMMON NORMALS: Yes no CVA tenderness BLADDER/KIDNEY EXAM: Yes no CVA tenderness Back/Pelvis: COMMON NORMALS: no CVA tenderness and thoracic and lumbar spine normal to inspection Extremity: COMMON NORMALS: normal to inspection Neuro: COMMON NORMALS: patient oriented x3 and CN's II-XII intact bilaterally Psych: COMMON NORMALS: mental status grossly normal, Normal thought process present and cooperative THOUGHT PROCESS: Normal thought process present Skin: NARRATIVE SKIN EXAM: Approximately 3 to 4 cm skin tear left elbow. Abrasion right heel. 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 We did check that and it was in the normal range at 25. There were also concerned about a possible stroke so we did obtain a head CT which was read by the radiologist as nothing acute. We have been attempting to obtain urine however patient was unable to urinate. I had the nurse place a catheter and there was no urine in the bladder. We then gave him 1 L bolus of normal saline. Patient will need to be admitted regardless. I did discuss the case with Dr. Calle, hospitalist. He is coming to the emergency department to evaluate the patient. The wounds were cleaned and dressed with antibiotic ointment by nursing staff. Lab Data Radiology Impressions Head CT 04/24/25 22:34 IMPRESSION: 1. No acute intracranial hemorrhage or mass effect. 2. Changes of microvascular disease. 3. No definite acute infarct by CT, see above. 4. Other findings discussed above. Laboratory Results Ammonia 25 umol/L (16-60) 04/24/25 20:59 All radiology interpretation(s) finalized by discharge Discharge Plan Discharge Patient Disposition: Admitted As Inpatient Clinical Impression: Generalized weakness, Falls frequently Condition: Stable Coding Level of Care Code ED Solar Installer Pv for Migue Pelaez
--- NOTE | 2025-04-25 02:10 | CTR_ITS ---
PROCEDURE INFORMATION: Exam: CT Abdomen And Pelvis Without Contrast Exam date and time: 04/25/2025 3:13 AM Age: 69 years old Clinical indication: Other: Diarrhea; Additional info: Diarrhea, cdiff TECHNIQUE: Imaging protocol: Computed tomography of the abdomen and pelvis without contrast. Radiation optimization: All CT scans at this facility use at least one of these dose optimization techniques: automated exposure control; mA and/or kV adjustment per patient size (includes targeted exams where dose is matched to clinical indication); or iterative reconstruction. COMPARISON: CT abdomen pelvis w con* [id number] 09/25/2024 7:14 PM RADIATION DOSE METRICS: Total DLP (mGy-cm): 1111.73 FINDINGS: Lungs: Mild possible atelectasis/scarring in the posterior left lower lobe, pneumonia not excluded. Please correlate clinically. Minimal probable atelectasis in the right lower lung. No pleural fluid. Esophagus: Suspect mild mucosal/wall thickening involving the lower esophagus, although this could be a transient appearance. While nonspecific, the findings could represent evidence for esophagitis. Neoplasm would be much less likely, not entirely excluded. Please correlate clinically. Liver: Relatively small liver with lobular margins, likely related to cirrhosis. The appearance is similar to the prior exam. Please correlate clinically. No definite focal hepatic abnormality, within limits of noncontrast CT. Gallbladder and biliary ducts: Prior cholecystectomy, no significant biliary tree dilation. Pancreas: Unremarkable. Spleen: As before, there is prominent splenomegaly, with a length of about 19 cm. Previously the spleen measured about 21 cm. No definite/significant focal splenic abnormality or perisplenic fluid. Adrenal glands: Unremarkable. Kidneys and ureters: No hydronephrosis of either kidney. No visible renal or ureteral calculus. No perinephric fluid. Stomach and bowel: No significant bowel distention. Apparent prior right hemicolectomy. There is diverticulosis involving the colon, without CT evidence of diverticulitis. No findings to strongly suggest colitis at this time. Negative CT does not entirely exclude colitis, so follow-up may be helpful, as clinically directed. Appendix: Presumably the appendix has been surgically removed. Intraperitoneal space: No free intraperitoneal air, or ascites. Vasculature: Varices again seen in the left upper quadrant, possibly related to portal hypertension. No evidence for abdominal aortic aneurysm. Lymph nodes: No retroperitoneal adenopathy. Urinary bladder: Ramey catheter in the urinary bladder. No visible calculus in the bladder. The bladder is essentially empty, limiting other evaluation. Reproductive: Apparent radiation implants again seen in the prostate gland. Bones/joints: Moderate degenerative changes throughout the lumbar and lower thoracic spine, similar to the prior exam. Soft tissues: 3 cm right periumbilical region ventral hernia, containing only no bowel. No significant change. CT/CT abdomen pelvis wo con [id number] IMPRESSION: 1. No free air or significant bowel distention. 2. No evidence to strongly suggest diverticulitis or colitis, see above. 3. Findings likely related to cirrhosis and portal hypertension, see above. 4. Prominent splenomegaly, details above. 5. Mild lower lung opacities, see above. 6. Possibly some thickening of the lower esophagus, see above discussion. 7. Other findings discussed above.
--- NOTE | 2025-04-25 02:11 | PM.HP ---
Providers/Chief Complaint Primary Care Provider: Faiza Carson MD Chief Complaint: FALL, SKIN ABRASIONS, STITCHES History of Present Illness Jeremy Melgar is a 69 year old male with a past medical history of type 2 diabetes mellitus, With a past medical history of MGUS, liver cirrhosis, thrombocytopenia, neutropenia, history of hyperammonemia who presents to [facility] due to weakness, falls, acute on chronic diarrhea. Currently patient is alert to person, to place, not to time he follows all commands, patient's son is at bedside. Patient over the last few days has been having increased weakness, fatigue he has been having increased bouts of his chronic diarrhea, denies any fevers, no chills, does report nonspecific abdominal pain, no nausea, no vomiting, today he had a fall in the shower, he cut his left heel onto tile, he came to the emergency room was discharged home, then again once he got home he fell was on the ground for some period of time his called Jeremy son, who then called EMS, Review of Systems Card: Denies: chest pain Resp: Denies: dyspnea GI: Denies: abdominal pain Medications/Allergies Home Medications ?Medication ?Instructions ?Recorded ?Confirmed ?Last Taken ?Type furosemide 40 mg tablet 40 mg PO DAILY 09/26/24 04/24/25 04/23/25 History gabapentin 600 mg tablet 600 mg PO TID 09/26/24 04/24/25 04/23/25 History nadolol 20 mg tablet 20 mg PO DAILY 09/26/24 04/24/25 04/23/25 History pantoprazole 40 mg tablet,delayed 40 mg PO BID 09/26/24 04/24/25 04/23/25 History release spironolactone 50 mg tablet 50 mg PO DAILY 09/26/24 04/24/25 04/23/25 History tamsulosin 0.4 mg capsule 0.4 mg PO DAILY 09/26/24 04/24/25 04/23/25 History trazodone 100 mg tablet 100 mg PO BEDTIME 09/26/24 04/24/25 04/23/25 History diphenoxylate-atropine 2.5 1 tab PO BID PRN Diarrhea 04/24/25 04/24/25 Unknown History mg-0.025 mg tablet metformin 500 mg tablet 500 mg PO BID 04/24/25 04/24/25 Unknown History Allergies Allergy/AdvReac Type Severity Reaction Status Date / Time latex Allergy ADR-Itching Verified 04/24/25 21:29 morphine Allergy ADR-Anxiety Verified 04/24/25 21:29 PFSH Acute PFSH: Medical History (Updated 04/25/25 @ 02:16 by Michele Hart MD) Peripheral neuropathy Type 2 diabetes mellitus Monoclonal gammopathy of undetermined significance Social History Smoking and tobacco/nicotine status: never used tobacco/nicotine Vitals/I&O/Wt Last Vital Signs Temp 98.4 F 04/24/25 21: Pulse 60 04/25/25 00:40 Resp 16 04/24/25 21:21 BP 122/59 04/25/25 00:40 Pulse Ox 96 04/25/25 00:40 O2 Del Method Nasal Cannula 04/25/25 00:40 O2 Flow Rate 3 04/25/25 00:40 Weight last 48 hrs Weight 104.326 kg Physical Exam Const: COMMON NORMALS: no acute distress and patient oriented x3 HENMT: COMMON NORMALS: normocephalic HEAD & SCALP: normocephalic Eye: COMMON NORMALS: Equal, round and reactive pupils present Resp: COMMON NORMALS: normal respiratory effort, No retractions, No use of accessory muscles and clear to auscultation bilaterally AUSCULTATION: clear to auscultation bilaterally Cardio: COMMON NORMALS: no JVD, regular rate, regular rhythm, S1 normal heart sound present and S2 normal heart sound present RATE: regular rate RHYTHM: regular rhythm HEART SOUNDS: S1 normal heart sound present and S2 normal heart sound present GI: OTHER: Abdomen is soft, nondistended, is diffusely tender, good bowel sounds Extremity: COMMON NORMALS: no calf tenderness and no pedal edema Neuro: COMMON NORMALS: patient oriented x3, CN's II-XII intact bilaterally and moves all extremities Psych: COMMON NORMALS: mental status grossly normal Skin: NARRATIVE SKIN EXAM: Multiple superficial skin abrasions, bilateral elbows Has a cut left heel Multiple abrasions bilateral feet A&P Assessment and plan 1. Type 2 diabetes mellitus: 2. Monoclonal gammopathy of undetermined significance: 3. Recurrent falls: 4. Diarrhea: 5. Generalized weakness: Plan: Generalized weakness - PT OT Dehydration - IV fluids Recurrent falls - Denies any hip pain - CT head no acute findings - PT OT Acute on chronic diarrhea - Patient has a history of C. difficile back in September 2024 - He tested + 02/22/2025 but I do not see that he was ever treated - Will place on isolation - Repeat C. difficile testing - Started on p.o. vancomycin MGUS History of Vivas, liver cirrhosis History of hyperammonemia, ammonia levels within relatively normal limits - I do not see that he is on rifaximin mean or lactulose - Will have nursing staff call pharmacy in the morning Full code SCDs for DVT prophylaxis, Lovenox relatively complicated given thrombocytopenia PDMP PDMP Reviewed: Not Reviewed Attestations Medical Necessity Statement*: Patient requires hospitalization, outpatient observation, for generalized weakness, falls, diarrhea Diagnoses Type 2 diabetes mellitus E11.9 Monoclonal gammopathy of undetermined significance D47.2 Recurrent falls R29.6 Diarrhea R19.7 Generalized weakness R53.1
[2025-04-25 03:44] LABS: Glucose Urine UA Negative (Normal); Nitrate Urine Negative (Negative); Specific Gravity, Urine 1.021 (1.005-1.030)
[2025-04-25 05:59] LABS: Cholesterol 104 mg/dL (0-200); HDL Cholesterol 47 mg/dL (60-100); Thyroid Stimulating Hormone 0.99 uIU/mL (0.27-4.20); Triglycerides 76 mg/dL (0-150)
--- NOTE | 2025-04-25 09:47 | PC.PHAR ---
Patient does not know thenames of most medications. He is not sure when he took them. He sttaes he takes about 5 adn he has a pill box set up but now sure which ones he takes. Patient states he doesn't think his knows them either.
[2025-04-25 10:03] LABS: Hematocrit 32.4 % (37-53); Hemoglobin 11.00 g/dL (11.27-16.99); Mean Corpuscular HGB Conc 34.0 g/dL (30-55); Mean Corpuscular Hemoglobin 32.9 pg (27-33); Mean Corpuscular Volume 97.0 fl (82-101); Nucleated Red Blood Cells % 0 %; Platelet Count 33 10^3/cmm (157-399); Red Blood Count 3.34 10^6/uL (3.85-5.65); White Blood Count 2.00 10^3/uL (3.29-11.43)
[2025-04-25 10:15] LABS: Alanine Aminotransferase 13 U/L (0-41); Albumin Level 3.7 g/dL (3.5-5.2); Alkaline Phosphatase 83 U/L (40-130); Aspartate Amino Transferase 33 U/L (0-40); Blood Urea Nitrogen 22 mg/dL (8-23); Calcium 8.7 mg/dL (8.5-10.5); Carbon Dioxide 20 mmol/L (22-29); Chloride 107 mmol/L (98-107); Creatinine Clr Calc Pharmacy 114.0302; Globulin 2.3 g/dL (1.3-4.6); Glucose 113 mg/dL (65-115); Iron 60 ug/dL (59-158); Magnesium 1.5 mg/dL (1.7-2.3); Osmolality Calculated 290 mOsm/kg (285-295); Sodium 138 mmol/L (136-145); Total Iron Binding Capacity 251 mcg/dl; Total Protein 6.0 g/dL (6.6-8.7); Unsaturated Iron Binding 191 ug/dL (112-347)
[2025-04-25 10:19] LABS: Anion Gap 14.7 (5-19); Potassium 3.7 mmol/L (3.5-5.1)
[2025-04-25 10:31] LABS: Procalcitonin 0.13 ng/mL (0-0.5); Vitamin B12 668 pg/mL (232-1245)
[2025-04-25 10:54] LABS: Estmated Average Glucose 108; Hemoglobin A1C 5.4 % (4.0-6.0)
--- NOTE | 2025-04-25 11:28 | PC.NURSE ---
[facility] CATH REMOVED. PATIENT TOLERATED WELL. TOTAL OUTPUT FROM D[facility] 800 ML.
--- NOTE | 2025-04-25 15:24 | PC.OT ---
OT EVALUATION ATTEMPTED. PATIENT SLEEPING SOUNDLY; HAS BEEN IN E.R. ALL DAY.
[2025-04-26] VITALS (9 sets, daily range): BP systolic 100–134; BP diastolic 54–72; PULSE 57–76; RESP 16–18; TEMP 36.4–36.7; O2SAT 91–96
[2025-04-26 05:17] LABS: Hematocrit 32.9 % (37-53); Hemoglobin 10.80 g/dL (11.27-16.99); Mean Corpuscular HGB Conc 32.8 g/dL (30-55); Mean Corpuscular Hemoglobin 32.4 pg (27-33); Mean Corpuscular Volume 98.8 fl (82-101); Nucleated Red Blood Cells % 0 %; Platelet Count 35 10^3/cmm (157-399); Red Blood Count 3.33 10^6/uL (3.85-5.65); White Blood Count 1.95 10^3/uL (3.29-11.43)
[2025-04-26 05:42] LABS: Alanine Aminotransferase 12 U/L (0-41); Albumin Level 3.5 g/dL (3.5-5.2); Alkaline Phosphatase 83 U/L (40-130); Anion Gap 14.8 (5-19); Aspartate Amino Transferase 29 U/L (0-40); Blood Urea Nitrogen 20 mg/dL (8-23); Calcium 8.6 mg/dL (8.5-10.5); Carbon Dioxide 20 mmol/L (22-29); Chloride 110 mmol/L (98-107); Creatinine Clr Calc Pharmacy 91.2241; Globulin 2.0 g/dL (1.3-4.6); Glucose 111 mg/dL (65-115); Osmolality Calculated 295 mOsm/kg (285-295); Potassium 3.8 mmol/L (3.5-5.1); Sodium 141 mmol/L (136-145); Total Protein 5.5 g/dL (6.6-8.7)
[2025-04-26 09:41] LABS: Magnesium 1.5 mg/dL (1.7-2.3)
--- NOTE | 2025-04-26 12:44 | P.PN_ITS ---
Subjective 2 Subjective: No acute events overnight. Patient has remained hemodynamically stable and afebrile. Worked with physical therapy. Complaining of mild dizziness when standing up. Vitals/I&O/Wt Last Vital Signs Temp 97.5 F L 04/26/25 11:42 Pulse 62 04/26/25 11:42 Resp 17 04/26/25 11:42 BP 125/72 04/26/25 11:42 Pulse Ox 96 04/26/25 11:42 O2 Del Method Room Air 04/26/25 00:00 O2 Flow Rate 3 04/25/25 06:42 FiO2 21 04/25/25 22:59 04/25/25 04/26/25 04/26/25 22:59 06:59 14:59 Intake Total 1000 / 1000 1480 / 1480 Output Total 300 / 300 Balance 1000 / 1000 1180 / 1180 Weight last 48 hrs Weight 104.326 kg Physical Exam 2 Const: COMMON NORMALS: no acute distress and patient oriented x3 HENMT: COMMON NORMALS: normocephalic HEAD & SCALP: normocephalic Eye: COMMON NORMALS: Equal, round and reactive pupils present PUPIL: Yes Equal, round and reactive pupils present Neck/C-Spine: COMMON NORMALS: no JVD Resp: COMMON NORMALS: normal respiratory effort, No retractions, No use of accessory muscles and clear to auscultation bilaterally AUSCULTATION: clear to auscultation bilaterally Cardio: COMMON NORMALS: no JVD, regular rate, regular rhythm, S1 normal heart sound present and S2 normal heart sound present RATE: regular rate RHYTHM: regular rhythm HEART SOUNDS: S1 normal heart sound present and S2 normal heart sound present GI: OTHER: Abdomen is soft, nondistended, is diffusely tender, good bowel sounds Extremity: COMMON NORMALS: no calf tenderness and no pedal edema Neuro: COMMON NORMALS: patient oriented x3, CN's II-XII intact bilaterally and moves all extremities Psych: COMMON NORMALS: mental status grossly normal Skin: NARRATIVE SKIN EXAM: Multiple superficial skin abrasions, bilateral elbows Has a cut left heel Multiple abrasions bilateral feet Data 04/26/25 04:15 04/26/25 04:15 A&P Assessment and plan 1. Recurrent falls: 2. Generalized weakness: 3. C. difficile diarrhea: 4. Bradycardia: 5. Non-alcoholic micronodular cirrhosis of liver: 6. Type 2 diabetes mellitus: 7. Monoclonal gammopathy of undetermined significance: 8. Short bowel syndrome: Plan: Recurrent falls: Most likely in setting of dehydration and weakness. Cannot rule out in setting of bradycardia. Check orthostatic vitals. Telemetry. PT/OT. Fall precautions. Generalized weakness: PT/OT. Dehydration: Continue with NS at 75 cc/h for 1 bag. Encourage oral intake. Acute on chronic diarrhea: Used to be on lactulose given nonalcoholic liver cirrhosis but has been withheld recently. C. difficile positive in . It seems patient was never treated. Continue with fidaxomicin 200 mg twice daily to finish her course of antibiotics for now. If patient continues to have diarrhea after completion of C. difficile cannot rule out short colon syndrome given history of colectomy x 2 in the past. Patient will need to follow-up with gastroenterology as an outpatient. Though iron panel and vitamin B12 levels normal. Check thiamine levels. Check quantitative fecal fat. Bradycardia: Telemetry. Hold off on home dose of nadolol. MGUS History of Vivas, liver cirrhosis: Ammonia levels normal. Monitor liver functions daily. Discussed today with patient and son. DNR/DNI. SCDs for DVT prophylaxis, Lovenox relatively complicated given thrombocytopenia Famotidine for PUD prophylaxis Cardiac diet Discharge plan: Discussed in detail with patient's son/DPOA over the phone. Patient as per son lives with an elderly life partner and has been getting weaker recently and as per the son it is unsafe for the patient to be at home as if he is at a higher risk of a fall. Requesting transition to SNF. Case management alerted. PDMP PDMP Reviewed: Not Reviewed Attestations 2 Medical Necessity Statement*: Requested hospitalization for management of weakness with recurrent falls in setting of acute on chronic diarrhea with C. difficile positive while safe discharge planning is sought, bradycardia Diagnoses Recurrent falls R29.6 Generalized weakness R53.1 C. difficile diarrhea A04.72 Bradycardia R00.1 Non-alcoholic micronodular cirrhosis of liver K74.69 Type 2 diabetes mellitus E11.9 Monoclonal gammopathy of undetermined significance D47.2 Short bowel syndrome K90.829
[2025-04-26] MEDS: magnesium sulfate premix 2 GM/50 ML PIGGYBACK IV (13:32)
--- NOTE | 2025-04-26 16:21 | PC.OT ---
OT evaluation attempted with pt refusing; will attempt again at later time.
--- NOTE | 2025-04-26 17:47 | CTR_ITS ---
PROCEDURE INFORMATION: Exam: CT Head Without Contrast Exam date and time: 04/26/2025 8:22 PM Age: 69 years old Clinical indication: Altered mental status/memory loss; Confusion with general weakness; Additional info: AMS TECHNIQUE: Imaging protocol: Computed tomography of the head without contrast. Radiation optimization: All CT scans at this facility use at least one of these dose optimization techniques: automated exposure control; mA and/or kV adjustment per patient size (includes targeted exams where dose is matched to clinical indication); or iterative reconstruction. COMPARISON: CT head wo con* [id number] 04/24/2025 11:23 PM RADIATION DOSE METRICS: Total DLP (mGy-cm): 1216.24 FINDINGS: Brain: There is patchy hypoattenuation in the deep and subcortical white matter, likely representing chronic small vessel ischemic change. No mass effect. No hemorrhage. Age-related parenchymal atrophy with enlargement of the CSF spaces. Cerebral ventricles: No ventriculomegaly. Paranasal sinuses: Visualized sinuses are unremarkable. No fluid levels. Mastoid air cells: Visualized mastoid air cells are well aerated. Bones: Unremarkable. No acute fracture. Soft tissues: Unremarkable. CT/CT head wo con* [id number] IMPRESSION: No acute intracranial abnormality.
[2025-04-26 18:23] LABS: Ammonia 70 umol/L (16-60)
--- NOTE | 2025-04-26 23:56 | PC.NURSE ---
Patient refused 2100 meds stating You all took my medicine that was on the table, so why are you wanting me to take something else now. This nurse attempted to explain to patient the importance of medications. Patient still refused.
[2025-04-27 04:00] VITALS: BP 118/68; PULSE 61; RESP 17; TEMP 36.6; O2SAT 92
[2025-04-27 04:57] LABS: Alanine Aminotransferase 13 U/L (0-41); Albumin Level 3.6 g/dL (3.5-5.2); Alkaline Phosphatase 82 U/L (40-130); Anion Gap 14.7 (5-19); Aspartate Amino Transferase 30 U/L (0-40); Blood Urea Nitrogen 13 mg/dL (8-23); Calcium 8.8 mg/dL (8.5-10.5); Carbon Dioxide 19 mmol/L (22-29); Chloride 107 mmol/L (98-107); Creatinine Clr Calc Pharmacy 114.0302; Globulin 2.1 g/dL (1.3-4.6); Glucose 103 mg/dL (65-115); Osmolality Calculated 284 mOsm/kg (285-295); Potassium 3.7 mmol/L (3.5-5.1); Sodium 137 mmol/L (136-145); Total Protein 5.7 g/dL (6.6-8.7)
[2025-04-27] MEDS: lactulose oral liq 20 gm/30 mL UDC PO ×3 (05:08→17:19)
[2025-04-27 05:14] LABS: Hematocrit 32.4 % (37-53); Hemoglobin 11.30 g/dL (11.27-16.99); Mean Corpuscular HGB Conc 34.9 g/dL (30-55); Mean Corpuscular Hemoglobin 33.8 pg (27-33); Mean Corpuscular Volume 97.0 fl (82-101); Nucleated Red Blood Cells % 0 %; Platelet Count 39 10^3/cmm (157-399); Red Blood Count 3.34 10^6/uL (3.85-5.65); White Blood Count 1.59 10^3/uL (3.29-11.43)
[2025-04-27] MEDS: haloperidol inj 5 mg/mL INJ 1 mL 2 MG IVP (05:49)
[2025-04-27] MEDS: LORazepam 1 MG/0.5 ML injection IVP (06:15)
[2025-04-27 06:38] LABS: Magnesium 1.7 mg/dL (1.7-2.3)
[2025-04-27 07:16] VITALS: BP 173/85; PULSE 68; RESP 15; TEMP 36.8; O2SAT 93
[2025-04-27 07:20] LABS: Ammonia 60 umol/L (16-60)
[2025-04-27 08:29] VITALS: TEMP 37.1
--- NOTE | 2025-04-27 13:40 | P.PN_ITS ---
Subjective 2 Subjective: No acute events overnight. A-fib in the evening and refusing medication for the morning sitting up in chair. Family at bedside. More awake and alert. Complaining of pain in his heel. Denies any nausea, vomiting. Had 2 bowel movements after starting lactulose. Vitals/I&O/Wt Last Vital Signs Temp 98.8 F 04/27/25 08:29 Pulse 68 04/27/25 07:16 Resp 15 04/27/25 07:16 BP 173/85 04/27/25 07:16 Pulse Ox 93 04/27/25 07:16 O2 Del Method Room Air 04/27/25 07:16 O2 Flow Rate 3 04/25/25 06:42 FiO2 21 04/25/25 22:59 04/26/25 04/27/25 04/27/25 22:59 06:59 14:59 Intake Total 1000 / 2530 750 / 750 Output Total 550 / 850 600 / 1450 250 / 250 Balance 450 / 1680 -600 / 1080 500 / 500 Physical Exam 2 Const: COMMON NORMALS: no acute distress and patient oriented x3 HENMT: COMMON NORMALS: normocephalic HEAD & SCALP: normocephalic Eye: COMMON NORMALS: Equal, round and reactive pupils present PUPIL: Yes Equal, round and reactive pupils present Neck/C-Spine: COMMON NORMALS: no JVD Resp: COMMON NORMALS: normal respiratory effort, No retractions, No use of accessory muscles and clear to auscultation bilaterally AUSCULTATION: clear to auscultation bilaterally Cardio: COMMON NORMALS: no JVD, regular rate, regular rhythm, S1 normal heart sound present and S2 normal heart sound present RATE: regular rate RHYTHM: regular rhythm HEART SOUNDS: S1 normal heart sound present and S2 normal heart sound present GI: OTHER: Abdomen is soft, nondistended, is diffusely tender, good bowel sounds Extremity: COMMON NORMALS: no calf tenderness and no pedal edema Neuro: COMMON NORMALS: patient oriented x3, CN's II-XII intact bilaterally and moves all extremities Psych: COMMON NORMALS: mental status grossly normal Skin: NARRATIVE SKIN EXAM: Multiple superficial skin abrasions, bilateral elbows Has a cut left heel Multiple abrasions bilateral feet Data 04/27/25 04:03 04/27/25 04:03 A&P Assessment and plan 1. Recurrent falls: 2. Generalized weakness: 3. C. difficile diarrhea: 4. Bradycardia: 5. Non-alcoholic micronodular cirrhosis of liver: 6. Type 2 diabetes mellitus: 7. Monoclonal gammopathy of undetermined significance: 8. Short bowel syndrome: 9. Hepatic encephalopathy: 10. Hyperammonemia: Plan: Recurrent falls: Most likely in setting of dehydration and weakness. Cannot rule out in setting of bradycardia. Check orthostatic vitals. Telemetry. PT/OT. Fall precautions. Generalized weakness: PT/OT. Dehydration: Continue with NS at 75 cc/h for 1 bag. Encourage oral intake. Acute on chronic diarrhea: Used to be on lactulose given nonalcoholic liver cirrhosis but has been withheld recently. C. difficile positive in . It seems patient was never treated. Continue with fidaxomicin 200 mg twice daily to finish her course of antibiotics for now. If patient continues to have diarrhea after completion of C. difficile cannot rule out short colon syndrome given history of colectomy x 2 in the past. Patient will need to follow-up with gastroenterology as an outpatient. Though iron panel and vitamin B12 levels normal. Check thiamine levels. Check quantitative fecal fat. Bradycardia: Telemetry. Hold off on home dose of nadolol. MGUS History of Vivas, liver cirrhosis: Ammonia levels normal. Monitor liver functions daily. Discussed today with patient and son. DNR/DNI. SCDs for DVT prophylaxis, Lovenox relatively complicated given thrombocytopenia Famotidine for PUD prophylaxis Cardiac diet Discharge plan: Discussed in detail with patient's son/SUNNI over the phone. Patient as per son lives with an elderly life partner and has been getting weaker recently and as per the son it is unsafe for the patient to be at home as if he is at a higher risk of a fall. Requesting transition to SNF. Case management alerted. Plan for today: Patient developing hepatic encephalopathy in setting of hyperammonemia. Continue with lactulose 20 mg Q6 hourly, rifaximin 600 mg twice daily. Once patient is having 2-3 bowel movements a day can change lactulose to as needed. Continue with current dose of fidaxomicin for 10-day course. Dehydration resolved. Stop IV fluids. Blood pressure slightly elevated. Goal blood pressure less than 140/90mmhg. Will continue to monitor. If needed can add amlodipine. Holding off on nadolol given bradycardia. Heart rate stable for now. Continue telemetry. PDMP PDMP Reviewed: Not Reviewed Attestations 2 Medical Necessity Statement*: Requested hospitalization for management of generalized weakness, hepatic encephalopathy in setting of hyperammonemia, nonalcoholic liver cirrhosis, C. difficile while safe discharge planning is sought. Diagnoses Recurrent falls R29.6 Generalized weakness R53.1 C. difficile diarrhea A04.72 Bradycardia R00.1 Non-alcoholic micronodular cirrhosis of liver K74.69 Type 2 diabetes mellitus E11.9 Monoclonal gammopathy of undetermined significance D47.2 Short bowel syndrome K90.829 Hepatic encephalopathy K76.82 Hyperammonemia E72.20
[2025-04-27] MEDS: HYDROcodone-acetaminophen 5-325 mg Tablet 1 TAB PO ×2 (14:10→19:24)
[2025-04-27 15:18] VITALS: BP 121/56; PULSE 74; RESP 16; TEMP 36.7; O2SAT 94
[2025-04-27 20:00] VITALS: BP 156/87; PULSE 74; RESP 20; TEMP 36.8; O2SAT 94
[2025-04-28] VITALS (7 sets, daily range): BP systolic 99–132; BP diastolic 50–83; PULSE 57–77; RESP 16–18; TEMP 36.2–36.7; O2SAT 93–96
[2025-04-28] MEDS: HYDROcodone-acetaminophen 5-325 mg Tablet 1 TAB PO (02:18)
[2025-04-28 05:32] LABS: Hematocrit 30.9 % (37-53); Hemoglobin 10.80 g/dL (11.27-16.99); Mean Corpuscular HGB Conc 35.0 g/dL (30-55); Mean Corpuscular Hemoglobin 34.2 pg (27-33); Mean Corpuscular Volume 97.8 fl (82-101); Nucleated Red Blood Cells % 0 %; Platelet Count 39 10^3/cmm (157-399); Red Blood Count 3.16 10^6/uL (3.85-5.65); White Blood Count 1.73 10^3/uL (3.29-11.43)
[2025-04-28 06:18] LABS: Alanine Aminotransferase 14 U/L (0-41); Albumin Level 3.6 g/dL (3.5-5.2); Alkaline Phosphatase 90 U/L (40-130); Anion Gap 15.8 (5-19); Aspartate Amino Transferase 30 U/L (0-40); Blood Urea Nitrogen 13 mg/dL (8-23); Calcium 8.6 mg/dL (8.5-10.5); Carbon Dioxide 19 mmol/L (22-29); Chloride 111 mmol/L (98-107); Creatinine Clr Calc Pharmacy 114.0302; Globulin 1.8 g/dL (1.3-4.6); Glucose 119 mg/dL (65-115); Osmolality Calculated 295 mOsm/kg (285-295); Potassium 3.8 mmol/L (3.5-5.1); Sodium 142 mmol/L (136-145); Total Protein 5.4 g/dL (6.6-8.7)
[2025-04-28] MEDS: lactulose oral liq 20 gm/30 mL UDC PO ×3 (06:36→17:37)
--- NOTE | 2025-04-28 13:31 | P.PN_ITS ---
Subjective 2 Subjective: No acute events overnight. Patient has remained hemodynamically stable and afebrile. Back to baseline mentation. Vitals/I&O/Wt Last Vital Signs Temp 97.9 F 04/28/25 12:36 Pulse 59 L 04/28/25 12:36 Resp 17 04/28/25 12:36 BP 114/72 04/28/25 12:36 Pulse Ox 96 04/28/25 12:36 O2 Del Method Room Air 04/28/25 03:59 O2 Flow Rate 3 04/25/25 06:42 FiO2 21 04/25/25 22:59 04/27/25 04/28/25 04/28/25 22:59 06:59 14:59 Intake Total 240 / 990 480 / 480 Output Total 300 / 550 350 / 900 200 / 200 Balance -60 / 440 -350 / 90 280 / 280 Physical Exam 2 Const: COMMON NORMALS: no acute distress and patient oriented x3 HENMT: COMMON NORMALS: normocephalic HEAD & SCALP: normocephalic Eye: COMMON NORMALS: Equal, round and reactive pupils present PUPIL: Yes Equal, round and reactive pupils present Neck/C-Spine: COMMON NORMALS: no JVD Resp: COMMON NORMALS: normal respiratory effort, No retractions, No use of accessory muscles and clear to auscultation bilaterally AUSCULTATION: clear to auscultation bilaterally Cardio: COMMON NORMALS: no JVD, regular rate, regular rhythm, S1 normal heart sound present and S2 normal heart sound present RATE: regular rate RHYTHM: regular rhythm HEART SOUNDS: S1 normal heart sound present and S2 normal heart sound present GI: OTHER: Abdomen is soft, nondistended, is diffusely tender, good bowel sounds Extremity: COMMON NORMALS: no calf tenderness and no pedal edema Neuro: COMMON NORMALS: patient oriented x3, CN's II-XII intact bilaterally and moves all extremities Psych: COMMON NORMALS: mental status grossly normal Skin: NARRATIVE SKIN EXAM: Multiple superficial skin abrasions, bilateral elbows Has a cut left heel Multiple abrasions bilateral feet Data 04/28/25 04:46 04/28/25 04:46 A&P Assessment and plan 1. Recurrent falls: 2. Generalized weakness: 3. C. difficile diarrhea: 4. Bradycardia: 5. Non-alcoholic micronodular cirrhosis of liver: 6. Type 2 diabetes mellitus: 7. Monoclonal gammopathy of undetermined significance: 8. Short bowel syndrome: 9. Hepatic encephalopathy: 10. Hyperammonemia: Plan: Recurrent falls: Most likely in setting of dehydration and weakness. Cannot rule out in setting of bradycardia. Check orthostatic vitals. Telemetry. PT/OT. Fall precautions. Generalized weakness: PT/OT. Dehydration: Continue with NS at 75 cc/h for 1 bag. Encourage oral intake. Acute on chronic diarrhea: Used to be on lactulose given nonalcoholic liver cirrhosis but has been withheld recently. C. difficile positive in . It seems patient was never treated. Continue with fidaxomicin 200 mg twice daily to finish her course of antibiotics for now. If patient continues to have diarrhea after completion of C. difficile cannot rule out short colon syndrome given history of colectomy x 2 in the past. Patient will need to follow-up with gastroenterology as an outpatient. Though iron panel and vitamin B12 levels normal. Check thiamine levels. Check quantitative fecal fat. Bradycardia: Telemetry. Hold off on home dose of nadolol. MGUS History of Vivas, liver cirrhosis: Ammonia levels normal. Monitor liver functions daily. Discussed today with patient and son. DNR/DNI. SCDs for DVT prophylaxis, Lovenox relatively complicated given thrombocytopenia Famotidine for PUD prophylaxis Cardiac diet Discharge plan: Discussed in detail with patient's son/DPELADIA over the phone. Patient as per son lives with an elderly life partner and has been getting weaker recently and as per the son it is unsafe for the patient to be at home as if he is at a higher risk of a fall. Requesting transition to SNF. Case management alerted. Plan for today: Mentation improving. Continue with lactulose 20 mg Q6 hourly along with rifaximin. Can change lactulose to as needed once patient having 2-3 bowel movements daily. Continue with fidaxomicin. Blood pressure stable. Heart rate mostly running in the low 50s to mid 60s. Continue to hold off on nadolol. PDMP PDMP Reviewed: Not Reviewed Attestations 2 Medical Necessity Statement*: Requested hospitalization for management of generalized weakness, hepatic encephalopathy in setting of hyperammonemia, nonalcoholic liver cirrhosis, C. difficile while safe discharge planning is sought. Diagnoses Recurrent falls R29.6 Generalized weakness R53.1 C. difficile diarrhea A04.72 Bradycardia R00.1 Non-alcoholic micronodular cirrhosis of liver K74.69 Type 2 diabetes mellitus E11.9 Monoclonal gammopathy of undetermined significance D47.2 Short bowel syndrome K90.829 Hepatic encephalopathy K76.82 Hyperammonemia E72.20
--- NOTE | 2025-04-28 22:49 | PC.NURSE ---
Patient refused any meds after 2100. Stating he just wants to be left alone.
[2025-04-29 03:34] VITALS: BP 136/76; PULSE 71; RESP 16; TEMP 36.4; O2SAT 95
[2025-04-29] MEDS: lactulose oral liq 20 gm/30 mL UDC PO ×3 (05:18→17:15)
[2025-04-29 05:20] LABS: Hematocrit 38.2 % (37-53); Hemoglobin 12.50 g/dL (11.27-16.99); Mean Corpuscular HGB Conc 32.7 g/dL (30-55); Mean Corpuscular Hemoglobin 33.0 pg (27-33); Mean Corpuscular Volume 100.8 fl (82-101); Nucleated Red Blood Cells % 0 %; Platelet Count 47 10^3/cmm (157-399); Red Blood Count 3.79 10^6/uL (3.85-5.65); White Blood Count 2.78 10^3/uL (3.29-11.43)
--- NOTE | 2025-04-29 05:37 | PC.NURSE ---
Nurse was unable to administer IVP famotidine due to iv access going bad. Dr. Solis ordered PO famotidine.
[2025-04-29 06:32] LABS: Alanine Aminotransferase 16 U/L (0-41); Albumin Level 3.9 g/dL (3.5-5.2); Alkaline Phosphatase 107 U/L (40-130); Aspartate Amino Transferase 35 U/L (0-40); Blood Urea Nitrogen 14 mg/dL (8-23); Calcium 9.1 mg/dL (8.5-10.5); Carbon Dioxide 19 mmol/L (22-29); Chloride 108 mmol/L (98-107); Creatinine Clr Calc Pharmacy 114.0302; Globulin 2.5 g/dL (1.3-4.6); Glucose 110 mg/dL (65-115); Osmolality Calculated 291 mOsm/kg (285-295); Sodium 140 mmol/L (136-145); Total Protein 6.4 g/dL (6.6-8.7)
[2025-04-29 06:52] LABS: Anion Gap 17.0 (5-19); Potassium 4.0 mmol/L (3.5-5.1)
[2025-04-29 07:34] VITALS: BP 123/68; PULSE 72; RESP 17; TEMP 36.8; O2SAT 95
[2025-04-29] MEDS: HYDROcodone-acetaminophen 5-325 mg Tablet 1 TAB PO ×2 (08:26→17:14)
[2025-04-29 11:08] VITALS: BP 123/68; PULSE 69; RESP 17; TEMP 36.4; O2SAT 95
--- NOTE | 2025-04-29 12:22 | P.PN_ITS ---
Subjective 2 Subjective: Seen this morning. Diarrhea has improved Vitals/I&O/Wt Last Vital Signs Temp 97.5 F L 04/29/25 11:08 Pulse 69 04/29/25 11:08 Resp 17 04/29/25 11:08 BP 123/68 04/29/25 11:08 Pulse Ox 95 04/29/25 11:08 O2 Del Method Room Air 04/29/25 11:08 O2 Flow Rate 3 04/25/25 06:42 FiO2 21 04/25/25 22:59 04/28/25 04/29/25 04/29/25 22:59 06:59 14:59 Intake Total 240 / 720 Output Total 600 / 800 200 / 200 Balance -360 / -80 -200 / -200 Physical Exam 2 Const: COMMON NORMALS: no acute distress and patient oriented x3 HENMT: COMMON NORMALS: normocephalic HEAD & SCALP: normocephalic Eye: COMMON NORMALS: Equal, round and reactive pupils present PUPIL: Yes Equal, round and reactive pupils present Neck/C-Spine: COMMON NORMALS: no JVD Resp: COMMON NORMALS: normal respiratory effort, No retractions, No use of accessory muscles and clear to auscultation bilaterally AUSCULTATION: clear to auscultation bilaterally Cardio: COMMON NORMALS: no JVD, regular rate, regular rhythm, S1 normal heart sound present and S2 normal heart sound present RATE: regular rate RHYTHM: regular rhythm HEART SOUNDS: S1 normal heart sound present and S2 normal heart sound present GI: OTHER: Abdomen is soft, nondistended, is diffusely tender, good bowel sounds Extremity: COMMON NORMALS: no calf tenderness and no pedal edema Neuro: COMMON NORMALS: patient oriented x3, CN's II-XII intact bilaterally and moves all extremities Psych: COMMON NORMALS: mental status grossly normal Skin: NARRATIVE SKIN EXAM: Multiple superficial skin abrasions, bilateral elbows Has a cut left heel Multiple abrasions bilateral feet Data 04/29/25 04:36 04/29/25 04:36 A&P Assessment and plan 1. Recurrent falls: 2. Generalized weakness: 3. C. difficile diarrhea: 4. Bradycardia: 5. Non-alcoholic micronodular cirrhosis of liver: 6. Type 2 diabetes mellitus: 7. Monoclonal gammopathy of undetermined significance: 8. Short bowel syndrome: 9. Hepatic encephalopathy: 10. Hyperammonemia: Plan: Recurrent falls: Most likely in setting of dehydration and weakness. Cannot rule out in setting of bradycardia. Check orthostatic vitals. Telemetry. PT/OT. Fall precautions. Generalized weakness: PT/OT. Dehydration: Continue with NS at 75 cc/h for 1 bag. Encourage oral intake. Acute on chronic diarrhea: Used to be on lactulose given nonalcoholic liver cirrhosis but has been withheld recently. C. difficile positive in . It seems patient was never treated. Continue with fidaxomicin 200 mg twice daily to finish her course of antibiotics for now. If patient continues to have diarrhea after completion of C. difficile cannot rule out short colon syndrome given history of colectomy x 2 in the past. Patient will need to follow-up with gastroenterology as an outpatient. Though iron panel and vitamin B12 levels normal. Check thiamine levels. Check quantitative fecal fat. Bradycardia: Telemetry. Hold off on home dose of nadolol. MGUS History of [place], liver cirrhosis: Ammonia levels normal. Monitor liver functions daily. Discussed today with patient and son. DNR/DNI. SCDs for DVT prophylaxis, Lovenox relatively complicated given thrombocytopenia Famotidine for PUD prophylaxis Cardiac diet Discharge plan: Discussed in detail with patient's son/DPOA over the phone. Patient as per son lives with an elderly life partner and has been getting weaker recently and as per the son it is unsafe for the patient to be at home as if he is at a higher risk of a fall. Requesting transition to SNF. Case management alerted. Plan for today: Mentation improving. Continue with lactulose 20 mg Q6 hourly along with rifaximin. Can change lactulose to as needed once patient having 2-3 bowel movements daily. Continue with fidaxomicin. Blood pressure stable. Heart rate mostly running in the low 50s to mid 60s. Continue to hold off on nadolol. 04/29/2025 Continue fidaxomicin will switch to oral vancomycin at discharge. Patient's nursing facility will not be able to provide with daptomycin. Continue on lactulose 20 every 6 hours along with rifaximin. Awaiting placement in nursing facility. PDMP PDMP Reviewed: Not Reviewed Attestations 2 Medical Necessity Statement*: Safe discharge planning. Diagnoses Recurrent falls R29.6 Generalized weakness R53.1 C. difficile diarrhea A04.72 Bradycardia R00.1 Non-alcoholic micronodular cirrhosis of liver K74.69 Type 2 diabetes mellitus E11.9 Monoclonal gammopathy of undetermined significance D47.2 Short bowel syndrome K90.829 Hepatic encephalopathy K76.82 Hyperammonemia E72.20
[2025-04-29 16:00] VITALS: BP 129/68; PULSE 68; RESP 17; TEMP 36.6; O2SAT 95
[2025-04-29 19:42] VITALS: BP 116/63; PULSE 70; RESP 16; TEMP 36.6; O2SAT 95
[2025-04-29 23:48] VITALS: BP 124/68; PULSE 74; RESP 17; TEMP 36.3; O2SAT 93
[2025-04-30] MEDS: HYDROcodone-acetaminophen 5-325 mg Tablet 1 TAB PO (01:11)
[2025-04-30] MEDS: lactulose oral liq 20 gm/30 mL UDC PO ×3 (01:12→12:20)
[2025-04-30 03:17] LABS: Hematocrit 32.6 % (37-53); Hemoglobin 11.10 g/dL (11.27-16.99); Mean Corpuscular HGB Conc 34.0 g/dL (30-55); Mean Corpuscular Hemoglobin 33.4 pg (27-33); Mean Corpuscular Volume 98.2 fl (82-101); Nucleated Red Blood Cells % 0 %; Platelet Count 40 10^3/cmm (157-399); Red Blood Count 3.32 10^6/uL (3.85-5.65); White Blood Count 2.52 10^3/uL (3.29-11.43)
[2025-04-30 03:35] LABS: Anion Gap 12.9 (5-19); Blood Urea Nitrogen 16 mg/dL (8-23); Calcium 9.0 mg/dL (8.5-10.5); Carbon Dioxide 21 mmol/L (22-29); Chloride 108 mmol/L (98-107); Creatinine Clr Calc Pharmacy 114.0302; Glucose 121 mg/dL (65-115); Magnesium 1.5 mg/dL (1.7-2.3); Osmolality Calculated 288 mOsm/kg (285-295); Potassium 3.9 mmol/L (3.5-5.1); Sodium 138 mmol/L (136-145)
[2025-04-30 03:49] VITALS: BP 114/64; PULSE 74; RESP 17; TEMP 36.4; O2SAT 94
[2025-04-30 07:04] VITALS: BP 112/63; PULSE 64; RESP 17; TEMP 36.5; O2SAT 95
[2025-04-30 08:46] VITALS: BP 112/63; PULSE 64; RESP 17; TEMP 36.5
--- NOTE | 2025-04-30 10:05 | P.DS_ITS ---
Discharge Providers Date of Admission: 04/25/25 02:04 Date of Discharge: April 30, 2025 Attending Provider at Admission: Michele Hart MD Attending Provider at Discharge: Julieta Montemayor MD Primary Care Provider: Faiza Carson MD Diagnoses at Discharge Discharge Diagnosis 1. Recurrent falls: 2. Generalized weakness: 3. C. difficile diarrhea: 4. Bradycardia: 5. Non-alcoholic micronodular cirrhosis of liver: 6. Type 2 diabetes mellitus: 7. Monoclonal gammopathy of undetermined significance: 8. Short bowel syndrome: 9. Hepatic encephalopathy: 10. Hyperammonemia: Reason for Visit Reason for Visit: FALL, SKIN ABRASIONS, STITCHES Hospital Course Hospital Course Patient presented to the hospital with recurrent falls most likely secondary to dehydration and weakness. Also has acute on chronic diarrhea. Diagnosed with C. difficile. Was given fidaxomicin during hospitalization however we were told that he would not able to get fidaxomicin at nursing facility after discharge. He was transition to oral vancomycin at that point.DC back to home in stable condition Physical Exam Const: COMMON NORMALS: no acute distress and patient oriented x3 HENMT: COMMON NORMALS: normocephalic HEAD & SCALP: normocephalic Eye: COMMON NORMALS: Equal, round and reactive pupils present PUPIL: Yes Equal, round and reactive pupils present Neck/C-Spine: COMMON NORMALS: no JVD Resp: COMMON NORMALS: normal respiratory effort, No retractions, No use of accessory muscles and clear to auscultation bilaterally AUSCULTATION: clear to auscultation bilaterally Cardio: COMMON NORMALS: no JVD, regular rate, regular rhythm, S1 normal heart sound present and S2 normal heart sound present RATE: regular rate RHYTHM: regular rhythm HEART SOUNDS: S1 normal heart sound present and S2 normal heart sound present GI: OTHER: Abdomen is soft, nondistended, is diffusely tender, good bowel sounds Extremity: COMMON NORMALS: no calf tenderness and no pedal edema Neuro: COMMON NORMALS: patient oriented x3, CN's II-XII intact bilaterally and moves all extremities Psych: COMMON NORMALS: mental status grossly normal Skin: NARRATIVE SKIN EXAM: Multiple superficial skin abrasions, bilateral elbows Has a cut left heel Multiple abrasions bilateral feet Discharge Data Studies Completed and Pending Completed Studies During Hospitalization Category Date Time Status CT abdomen pelvis wo con [id number] Stat Cat Scan 04/25/25 02:[address] head wo con* [id number] Routine Cat Scan 04/26/25 17:[address] head wo con* [id number] Stat Cat Scan 04/24/25 22:34 Completed Pending at discharge Category Date Time Status Fecal Fat, Qualitative Routine Lab 04/28/25 17:09 Received Vitamin B1 (Thiamine),Blood Routine Lab 04/26/25 14:23 Received Radiology Impressions Abdomen/Pelvis CT 04/25/25 02:10 IMPRESSION: 1. No free air or significant bowel distention. 2. No evidence to strongly suggest diverticulitis or colitis, see above. 3. Findings likely related to cirrhosis and portal hypertension, see above. 4. Prominent splenomegaly, details above. 5. Mild lower lung opacities, see above. 6. Possibly some thickening of the lower esophagus, see above discussion. 7. Other findings discussed above. Head CT 04/26/25 17:47 IMPRESSION: No acute intracranial abnormality. Laboratory Results WBC 2.52 10^3/uL (3.29-11.43) L 04/30/25 02:53 RBC 3.32 10^6/uL (3.85-5.65) L 04/30/25 02:53 Hgb 11.10 g/dL (11.27-16.99) L 04/30/25 02:53 Hct 32.6 % (37-53) L 04/30/25 02:53 MCV 98.2 fl (82-101) 04/30/25 02:53 MCH 33.4 pg (27-33) H 04/30/25 02:53 MCHC 34.0 g/dL (30-55) 04/30/25 02:53 RDW 15.2 % (12.1-15.1) H 04/30/25 02:53 Plt Count 40 10^3/cmm (157-399) L 04/30/25 02:53 MPV 10.9 fL (7.4-10.4) H 04/30/25 02:53 Neut % (Auto) 63.1 % 04/30/25 02:53 Lymph % (Auto) 26.6 % 04/30/25 02:53 [place] % (Auto) 7.9 % 04/30/25 02:53 Eos % (Auto) 2.0 % 04/30/25 02:53 Baso % (Auto) 0.4 % 04/30/25 02:53 Neut # (Auto) 1.59 10^3/uL (1.8-7.7) L 04/30/25 02:53 Lymph # (Auto) 0.7 10^3/uL (0.8-4.8) L 04/30/25 02:53 [place] # (Auto) 0.2 10^3/uL (0.2-0.9) 04/30/25 02:53 Eos # (Auto) 0.1 10^3/uL (0.0-0.8) 04/30/25 02:53 Baso # (Auto) 0.0 10^3/uL (0.0-0.1) 04/30/25 02:53 Nucleated RBC % (auto) 0 % 04/30/25 02:53 Nucleated RBCs # 0.0 /100WBC 04/30/25 02:53 Sodium 138 mmol/L (136-145) 04/30/25 02:53 Potassium 3.9 mmol/L (3.5-5.1) 04/30/25 02:53 Chloride 108 mmol/L (98-107) H 04/30/25 02:53 Carbon Dioxide 21 mmol/L (22-29) L 04/30/25 02:53 Anion Gap 12.9 (5-19) 04/30/25 02:53 BUN 16 mg/dL (8-23) 04/30/25 02:53 Creatinine 0.8 mg/dL (0.7-1.2) 04/30/25 02:53 GFR Calculation Not Reportable 04/30/25 02:53 Glucose 121 mg/dL (65-115) H 04/30/25 02:53 POC Glucose 116 mg/dL (70-110) H 04/30/25 06:22 Estimat Average Glucose 108 04/25/25 09:58 Hemoglobin A1c 5.4 % (4.0-6.0) 04/25/25 09:58 Calculated Osmolality 288 mOsm/kg (285-295) 04/30/25 02:53 Calcium 9.0 mg/dL (8.5-10.5) 04/30/25 02:53 Magnesium 1.5 mg/dL (1.7-2.3) L 04/30/25 02:53 Iron 60 ug/dL (59-158) 04/25/25 09:49 TIBC 251 mcg/dl 04/25/25 09:49 % Saturation 23.9 % (20-50) 04/25/25 09:49 Unsat Iron Binding 191 ug/dL (112-347) 04/25/25 09:49 Total Bilirubin 1.7 mg/dL (0.15-1.2) H 04/29/25 04:36 AST 35 U/L (0-40) 04/29/25 04:36 ALT 16 U/L (0-41) 04/29/25 04:36 Alkaline Phosphatase 107 U/L (40-130) 04/29/25 04:36 Ammonia 60 umol/L (16-60) 04/27/25 06:54 Total Protein 6.4 g/dL (6.6-8.7) L 04/29/25 04:36 Albumin 3.9 g/dL (3.5-5.2) 04/29/25 04:36 Globulin 2.5 g/dL (1.3-4.6) 04/29/25 04:36 Triglycerides 76 mg/dL (0-150) 04/24/25 20:59 Cholesterol 104 mg/dL (0-200) 04/24/25 20:59 LDL Cholesterol, Calc 42 mg/dL (50-129) L 04/24/25 20:59 HDL Cholesterol 47 mg/dL (60-100) L 04/24/25 20:59 LDL/HDL Ratio 0.89 RATIO (0.00-3.22) 04/24/25 20:59 Cholesterol/HDL Ratio 2.21 mg/dL (1.0-5.00) 04/24/25 20:59 Vitamin B12 668 pg/mL (232-1245) 04/25/25 09:49 Folate > 20.0 ng/mL (4.5-32.2) 04/25/25 09:49 Procalcitonin 0.13 ng/mL (0-0.5) 04/25/25 09:49 TSH 0.99 uIU/mL (0.27-4.20) 04/24/25 20:59 Urine Color [place] (Yellow) A 04/25/25 03:36 Urine Appearance Clear (CLEAR) 04/25/25 03:36 Urine pH 5.0 (5-7) 04/25/25 03:36 Ur Specific [place] 1.021 (1.005-1.030) 04/25/25 03:36 Urine Protein Negative (Negative) 04/25/25 03:36 Urine Glucose (UA) Negative (Normal) 04/25/25 03:36 Urine Ketones Trace (Negative) 04/25/25 03:36 Urine Blood Negative (Negative) 04/25/25 03:36 Urine Nitrate Negative (Negative) 04/25/25 03:36 Urine Bilirubin Negative (Negative) 04/25/25 03:36 Urine Urobilinogen 1.0 mg/dL (Negative) 04/25/25 03:36 Ur Leukocyte Esterase Trace (Negative) A 04/25/25 03:36 Urine RBC 0-2 /hpf (0-2) 04/25/25 03:36 Urine WBC 0-5 /hpf (0-5) 04/25/25 03:36 Ur Squamous Epith Cells 0-5 /hpf (0-5) 04/25/25 03:36 Amorphous Sediment Not Reportable 04/25/25 03:36 Urine Bacteria None seen /hpf (NONE) 04/25/25 03:36 Hyaline Casts 2.05 /lpf 04/25/25 03:36 C. difficile (PCR) Cancelled 04/26/25 08:54 Vitals Last Vital Signs Temp 97.7 F 04/30/25 07:04 Pulse 64 04/30/25 07:04 Resp 17 04/30/25 07:04 BP 112/63 04/30/25 07:04 Pulse Ox 95 04/30/25 07:04 O2 Del Method Room Air 04/30/25 07:04 O2 Flow Rate 3 04/25/25 06:42 FiO2 21 04/25/25 22:59 Discharge Plan Discharge Patient Disposition: Xfer SNF Condition: Stable Prescriptions: New famotidine 20 mg Tablet 20 mg PO BID@0500,1700 Qty: 60 0RF Xifaxan 200 mg Tablet 500 mg PO BID Qty: 90 0RF lactulose 10 gram/15 mL Solution 20 g PO Q8H Qty: 400 0RF vancomycin 250 mg capsule 250 mg PO Q6H 6 Days Qty: 24 0RF gabapentin 300 mg capsule 300 mg PO TID Qty: 90 0RF multivitamin Tablet 1 tab PO DAILY Qty: 30 0RF Continued tamsulosin 0.4 mg capsule 0.4 mg PO DAILY trazodone 100 mg tablet 100 mg PO BEDTIME metformin 500 mg tablet 500 mg PO BID Held furosemide 40 mg tablet 40 mg PO DAILY Hold Instructions: see pcp nadolol 20 mg tablet 20 mg PO DAILY Hold Instructions: see pcp spironolactone 50 mg tablet 50 mg PO DAILY Hold Instructions: see pcp Discontinued gabapentin 600 mg tablet 600 mg PO TID pantoprazole 40 mg tablet,delayed release (DR/EC) 40 mg PO BID diphenoxylate-atropine 2.5-0.025 mg tablet 1 tab PO BID PRN (Reason: Diarrhea) Discharge Order = DC NOW: Discharge Order (Routine); Ordered 04/30/25 Ordered By: Julieta Montemayor Referrals: [facility] [Outside] - 1 week Referral Note: Liver cirrhosis, c.diff We have notified your physician's clinic of the need for a follow-up appointment to be scheduled. If you have not heard from them within the next 2 business days, please call them directly. Faiza Carson MD [Primary Care Provider, Internal Medicine] - 4-7 days King Baumann MD [Hospitalist, Oncology] - 4-7 days Referral Note: pancytopenia We have notified your physician's clinic of the need for a follow-up appointment to be scheduled. If you have not heard from them within the next 2 business days, please call them directly. Discharge Diet: As Directed Discharge Activity: As per PT/OT instructions Patient Instructions: Vancomycin (By mouth), Rifaximin (By mouth), C. Diff (Clostridioides Difficile) Infection (GEN) Activity Restrictions/Additional Instructions: We have held your liver cirrhosis medications: lasix, spironalactone due to diarrhea to avoid dehydration. Once your diarrhea improves, please see your PCP for resuming those held medications. You will need follow up with gastroenterolory as outpatient, referral has been placed. A cirrhosis diet focuses on?eating small, frequent, balanced meals with adequate protein and calories to prevent muscle loss, while limiting sodium to reduce fluid retention, and avoiding alcohol, trans fats, and raw/undercooked foods to protect the liver and prevent infection.?Follow low sodium, high protein diet. Foods and Drinks to Limit or Avoid * Alcohol:?Completely avoid alcohol as it can worsen liver damage and scarring.? * Sodium (Salt):?Limit salt to prevent fluid buildup in the abdomen and legs (ascites).? * Trans Fats:?Avoid fried foods and processed snacks high in trans fats, as the liver needs bile to process fats and this function can be impaired.? * Raw or Undercooked Foods:?Stay away from raw or undercooked meat, seafood, and eggs to reduce the risk of infections.? * Red Meat and Processed Meats:?Limit intake of processed lunch meats, granados, sausages, and other red meats.? * Added Sugars and Saturated Fats:?Reduce your intake of refined sugars and saturated fats found in many processed foods.? Discharge Attestations Time Spent in Discharge Care*: less than 30 min Quality Metrics Clinical Quality Measures [ No reported AMI, CVA or VTE this stay] Coding Level of Care Code Acute Code for Chg Fwd Diagnoses Recurrent falls R29.6 Generalized weakness R53.1 C. difficile diarrhea A04.72 Bradycardia R00.1 Non-alcoholic micronodular cirrhosis of liver K74.69 Type 2 diabetes mellitus E11.9 Monoclonal gammopathy of undetermined significance D47.2 Short bowel syndrome K90.829 Hepatic encephalopathy K76.82 Hyperammonemia E72.20
[2025-04-30 11:27] VITALS: BP 127/61; PULSE 66; RESP 16; TEMP 36.5; O2SAT 97
[2025-04-30 12:15] VITALS: BP 127/61; PULSE 66; RESP 16; TEMP 36.5
--- NOTE | 2025-04-30 12:52 | PC.NURSE ---
Called report to Jenny Buckner LPN at [facility].
[2025-04-30 12:53] VITALS: BP 127/61; PULSE 66; RESP 16; TEMP 36.5; O2SAT 97
[2025-05-01 11:19] LABS: Vitamin B1 (Thiamine),Blood 111 nmol/L (78-185)
[2025-05-03 08:15] LABS: Fecal Fat, Qualitative Normal (Normal)
== END 2025-04-30 12:40 | disposition skilled nursing facility (03) ==
LOC: ER 04-25 02:28 → ER IP 04-25 03:52 → MEDSURG 04-25 12:04
PROVIDERS: Student in an Organized Health Care Education/Training Program; Admitting Provider Family Medicine; Emergency Provider Emergency Medicine; PCP Internal Medicine; Visit Provider Internal Medicine
DX: R29.6 Repeated falls (principal); R53.1 Weakness; A04.72 Enterocolitis due to Clostridium difficile, not specified as recurrent; R00.1 Bradycardia, unspecified; K74.69 Other cirrhosis of liver; E11.9 Type 2 diabetes mellitus without complications; D47.2 Monoclonal gammopathy; K90.829 Short bowel syndrome, unspecified; K76.82 Hepatic encephalopathy; E72.20 Disorder of urea cycle metabolism, unspecified; K21.9 Gastro-esophageal reflux disease without esophagitis; Z79.84 Long term (current) use of oral hypoglycemic drugs; Z66 Do not resuscitate; G62.9 Polyneuropathy, unspecified; S91.312A Laceration without foreign body, left foot, initial encounter; E11.42 Type 2 diabetes mellitus with diabetic polyneuropathy; W18.2XXA Fall in (into) shower or empty bathtub, initial encounter
CPT/HCPCS: 36415; 36416; 70450; 74176; 80048; 80053; 80061; 81001; 82140; 82607; 82705; 82746; 82962; 83036; 83540; 83550; 83735; 84145; 84425; 84443; 85025; 94660; 94664; 96365; 96372; 96375; 97116; 97161; 97166; 97530; 97535; 99285; G0378; J1630; J1815; J2060; J3475; J3490; J7030; J9999

== ENCOUNTER → 2025-06-04 11:12 | Outpatient (BNVA) | payer MEDICARE, SELFPAY | PROVIDERS: PCP Internal Medicine; Visit Provider Podiatrist Foot & Ankle Surgery | DX: E11.42 Type 2 diabetes mellitus with diabetic polyneuropathy (principal); L60.3 Nail dystrophy; L60.8 Other nail disorders; M20.42 Other hammer toe(s) (acquired), left foot; G62.9 Polyneuropathy, unspecified; L97.522 Non-pressure chronic ulcer of other part of left foot with fat layer exposed; Z79.84 Long term (current) use of oral hypoglycemic drugs | CPT/HCPCS: 11721 ==

== ENCOUNTER 2025-06-14 11:01 | Observation (INO) | payer MEDICARE, SELFPAY ==
[2025-06-14] VITALS (11 sets, daily range): BP systolic 112–152; BP diastolic 49–73; PULSE 71–87; RESP 16–21; TEMP 36.4–36.9; O2SAT 93–96; BMI 29.2; BMI 29.3
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
--- NOTE | 2025-06-14 11:33 | XRR_ITS ---
PROCEDURE INFORMATION: Exam: XR Chest Exam date and time: 06/14/2025 12:01 PM Age: 70 years old Clinical indication: Other: AMS; Additional info: Altered mentation TECHNIQUE: Imaging protocol: Radiologic exam of the chest. Views: 1 view. COMPARISON: 1. CR XR chest 1V portable [id number] 10/01/2024 11:27 AM 2. CR XR chest 1V portable [id number] 09/30/2024 6:07 PM 3. CR XR chest 1V portable [id number] 09/25/2024 9:14 PM 4. CR XR chest 1V portable [id number] 09/25/2024 6:18 PM FINDINGS: Lungs: Linear density over medial mid, lower left hemithorax/lung, left infrahilar projecting over heart may be atelectasis, fibrosis, possibly with mitral valve calcification or other process, similar to prior studies. Otherwise, decreased opacities over lungs bilaterally compared to 10/01/2024. No new focal infiltrates seen of the lungs. Pleural spaces: No large or obvious pneumothorax nor pleural effusion seen. Heart/Mediastinum: Heart size appears upper limits of normal. Bones/joints: Degenerative changes spine. Other findings: Shallow inspiration. XR/XR chest 1V portable [id number] IMPRESSION: No acute findings seen of the chest.
[2025-06-14 12:23] LABS: Hematocrit 39.6 % (37-53); Hemoglobin 13.30 g/dL (11.27-16.99); Mean Corpuscular HGB Conc 33.6 g/dL (30-55); Mean Corpuscular Hemoglobin 32.5 pg (27-33); Mean Corpuscular Volume 96.8 fl (82-101); Nucleated Red Blood Cells % 0 %; Platelet Count 48 10^3/cmm (157-399); Red Blood Count 4.09 10^6/uL (3.85-5.65); White Blood Count 2.34 10^3/uL (3.29-11.43)
[2025-06-14 12:34] LABS: INR 1.20 (0.8-1.2); Prothrombin Time 16.00 SECONDS (12.1-14.9)
[2025-06-14 12:38] LABS: Lactic Sepsis W/Reflex 2.0 mmol/L (0.5-2.2)
[2025-06-14 12:39] LABS: Troponin(5th) Baseline 19 ng/L (0-15)
--- NOTE | 2025-06-14 12:43 | PC.PHAR ---
Pts' daughter in law takes care of medications. Verified several changes; Medications on hold: Lasix 40mg, Nadolol 20mg, and Spironolactone 50mg. Metformin 500mg stopped completely by pcp due to A1C is good. Lactulose and Lomotil are prn. Xifaxan 550 bid is still not covered on insurance but pt should be taking and only gets when hospitalized.
[2025-06-14 12:44] LABS: Ammonia 37 umol/L (16-60)
[2025-06-14 12:52] LABS: NT Pro B Type Natriuretic Pept 302 pg/mL (0-125); Procalcitonin 0.06 ng/mL (0-0.5)
[2025-06-14 13:00] LABS: Glucose Urine UA Negative (Normal); Nitrate Urine Negative (Negative)
[2025-06-14 13:03] LABS: Alanine Aminotransferase 15 U/L (0-41); Albumin Level 4.4 g/dL (3.5-5.2); Alkaline Phosphatase 146 U/L (40-130); Anion Gap 18.1 (5-19); Aspartate Amino Transferase 31 U/L (0-40); Blood Urea Nitrogen 10 mg/dL (8-23); Calcium 9.3 mg/dL (8.5-10.5); Carbon Dioxide 21 mmol/L (22-29); Chloride 106 mmol/L (98-107); Creatinine Clr Calc Pharmacy 112.8904; Globulin 2.0 g/dL (1.3-4.6); Glucose 109 mg/dL (65-115); Lipase 19 U/L (13-60); Magnesium 1.7 mg/dL (1.7-2.3); Osmolality Calculated 292 mOsm/kg (285-295); Potassium 4.1 mmol/L (3.5-5.1); Sodium 141 mmol/L (136-145); Total Protein 6.4 g/dL (6.6-8.7)
[2025-06-14 13:07] LABS: Specific Gravity, Urine 1.036 (1.005-1.030)
[2025-06-14 13:47] LABS: UA Manual Slide Review YES
[2025-06-14 13:48] LABS: Add Urine Microscopic? YES
--- NOTE | 2025-06-14 15:22 | CTR_ITS ---
PROCEDURE INFORMATION: Exam: CT Head Without Contrast Exam date and time: 06/14/2025 3:38 PM Age: 70 years old Clinical indication: Altered mental status/memory loss; Additional info: Fall with altered mentation TECHNIQUE: Imaging protocol: Computed tomography of the head without contrast. Radiation optimization: All CT scans at this facility use at least one of these dose optimization techniques: automated exposure control; mA and/or kV adjustment per patient size (includes targeted exams where dose is matched to clinical indication); or iterative reconstruction. COMPARISON: CT head wo con* [id number] 04/26/2025 8:22 PM RADIATION DOSE METRICS: Total DLP (mGy-cm): 2270.76 FINDINGS: Brain: No hemorrhage. Unremarkable white matter. No mass effect. Cerebral ventricles: The ventricles and sulci are proportionately enlarged, compatible with mild parenchymal atrophy. Paranasal sinuses: Visualized sinuses are unremarkable. No fluid levels. Mastoid air cells: Visualized mastoid air cells are well aerated. Bones: Unremarkable. No acute fracture. Soft tissues: Unremarkable. CT/CT head wo con* [id number] IMPRESSION: No acute intracranial finding.
[2025-06-14 16:04] LABS: Respiratory Syncytial Virus Ce NEGATIVE (Negative); SARS-CoV-2 PCR NEGATIVE (Negative)
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
[2025-06-15] VITALS: BP 114/66; PULSE 72; RESP 20; TEMP 36.9; O2SAT 90
[2025-06-15 04:00] VITALS: BP 123/79; PULSE 79; RESP 21; TEMP 37.1; O2SAT 91
[2025-06-15 04:31] LABS: Hematocrit 35.2 % (37-53); Hemoglobin 11.80 g/dL (11.27-16.99); Mean Corpuscular HGB Conc 33.5 g/dL (30-55); Mean Corpuscular Hemoglobin 32.5 pg (27-33); Mean Corpuscular Volume 97.0 fl (82-101); Nucleated Red Blood Cells % 0 %; Platelet Count 38 10^3/cmm (157-399); Red Blood Count 3.63 10^6/uL (3.85-5.65); White Blood Count 2.23 10^3/uL (3.29-11.43)
[2025-06-15 05:07] LABS: Alanine Aminotransferase 15 U/L (0-41); Albumin Level 3.7 g/dL (3.5-5.2); Alkaline Phosphatase 102 U/L (40-130); Anion Gap 17.7 (5-19); Aspartate Amino Transferase 36 U/L (0-40); Blood Urea Nitrogen 8 mg/dL (8-23); Calcium 8.7 mg/dL (8.5-10.5); Carbon Dioxide 19 mmol/L (22-29); Chloride 108 mmol/L (98-107); Creatinine Clr Calc Pharmacy 113.0831; Globulin 1.9 g/dL (1.3-4.6); Glucose 73 mg/dL (65-115); Osmolality Calculated 289 mOsm/kg (285-295); Potassium 3.7 mmol/L (3.5-5.1); Sodium 141 mmol/L (136-145); Total Protein 5.6 g/dL (6.6-8.7)
--- NOTE | 2025-06-15 05:53 | PC.NURSE ---
0550 Pt yelling out get me out of here and shaking the bedrails. Refused 0500 medications.
[2025-06-15] MEDS: LORazepam 1 MG/0.5 ML injection 0.5 MG IVP (06:46)
[2025-06-15] MEDS: haloperidol inj 5 mg/mL INJ 1 mL 2 MG IVP (06:47)
--- NOTE | 2025-06-15 11:29 | P.PN_ITS ---
Subjective 2 Subjective: He was agitated and restless this morning. He was given Haldol and Ativan. He was refusing his meds this morning but did take his lactulose and rifaximin eventually. He has had 2 big bowel movements since then. Medications: Reviewed: Yes Vitals/I&O/Wt Last Vital Signs Temp 98.7 F 06/15/25 04:00 Pulse 79 06/15/25 04:00 Resp 21 H 06/15/25 04:00 BP 123/79 06/15/25 04:00 Pulse Ox 91 06/15/25 04:00 O2 Del Method Room Air 06/15/25 04:00 06/14/25 06/15/25 06/15/25 22:59 06:59 14:59 Intake Total 1000 / 1000 1000 / 2000 500 / 500 Balance 1000 / 1000 1000 / 2000 500 / 500 Weight last 48 hrs Weight 109.27 kg Weight 109.372 kg Weight 108.862 kg Physical Exam 2 Narrative: GEN: Lethargic and confused HEENT: Normocephalic, atraumatic, PERRLA Neck: Supple Respiratory: No respiratory distress, clear to auscultation bilaterally Cardio: Regular rate and rhythm, S1, S2, no murmur, no JVD Abdomen: Soft, nontender, nondistended, normoactive bowel sounds Neuro: Disoriented, no focal neurodeficits Extremity: Warm, no edema Data 06/15/25 02:16 06/15/25 02:16 Micro: Microbiology 06/14/25 11:55 Blood Culture - Preliminary Blood SPECIMEN COLLECTED 06/14/25 11:53 Blood Culture - Preliminary Blood SPECIMEN COLLECTED A&P Assessment and plan 1. Hepatic encephalopathy: While his ammonia was normal he is confused not oriented He he did not have a bowel movement in 2 days prior to admission Continue lactulose, titrate for 2-3 bowel movements a day Continue rifaximin Monitor mental status for improvement 2. Non-alcoholic micronodular cirrhosis of liver: Continue Lasix and spironolactone Also on nadolol for secondary prevention of varices 3. Short bowel syndrome: He has had colon cancer twice status post resection 4. Chronic diarrhea: This is due to short-bowel syndrome. It is worsened by use of lactulose for his hepatic encephalopathy 5. Monoclonal gammopathy of undetermined significance: Followed by oncology 6. Type 2 diabetes mellitus: Sliding scale insulin 7. Peripheral neuropathy: He is on gabapentin Plan: Full code SCDs for DVT prophylaxis PDMP PDMP Reviewed: Not Reviewed Attestations 2 Medical Necessity Statement*: He needs continued hospitalization due to persistent encephalopathy. Coding Level of Care Code Acute Code for [facility] Fwd Diagnoses Hepatic encephalopathy K76.82 Non-alcoholic micronodular cirrhosis of liver K74.69 Short bowel syndrome K90.829 Chronic diarrhea K52.9 Monoclonal gammopathy of undetermined significance D47.2 Type 2 diabetes mellitus E11.9 Peripheral neuropathy G62.9
[2025-06-15 11:30] VITALS: BP 127/71; PULSE 71; RESP 20; TEMP 37.2; O2SAT 93
[2025-06-15] MEDS: lactulose oral liq 20 gm/30 mL UDC 15 GM PO (12:25)
[2025-06-15 16:28] VITALS: BP 102/57; PULSE 73; RESP 18; TEMP 36.7; O2SAT 94
[2025-06-15 18:27] LABS: Ammonia 51 umol/L (16-60)
[2025-06-15 20:00] VITALS: BP 145/87; PULSE 80; RESP 17; TEMP 36.4; O2SAT 96
[2025-06-15] MEDS: MELATONIN 3 MG TABLET 6 MG PO (20:25)
[2025-06-16 05:00] VITALS: BP 111/53; PULSE 76; RESP 16; TEMP 37; O2SAT 91
[2025-06-16] MEDS: multivitamin therapeutic Tablet 1 TAB PO (05:11)
[2025-06-16] MEDS: lactulose oral liq 20 gm/30 mL UDC 15 GM PO (05:12)
[2025-06-16 05:42] LABS: Hematocrit 32.0 % (37-53); Hemoglobin 10.80 g/dL (11.27-16.99); Mean Corpuscular HGB Conc 33.8 g/dL (30-55); Mean Corpuscular Hemoglobin 31.9 pg (27-33); Mean Corpuscular Volume 94.4 fl (82-101); Nucleated Red Blood Cells % 0 %; Platelet Count 38 10^3/cmm (157-399); Red Blood Count 3.39 10^6/uL (3.85-5.65); White Blood Count 2.24 10^3/uL (3.29-11.43)
[2025-06-16 05:58] LABS: Alanine Aminotransferase 13 U/L (0-41); Albumin Level 3.3 g/dL (3.5-5.2); Alkaline Phosphatase 95 U/L (40-130); Anion Gap 14.5 (5-19); Aspartate Amino Transferase 30 U/L (0-40); Blood Urea Nitrogen 10 mg/dL (8-23); Calcium 8.3 mg/dL (8.5-10.5); Carbon Dioxide 20 mmol/L (22-29); Chloride 111 mmol/L (98-107); Creatinine Clr Calc Pharmacy 112.9121; Globulin 1.6 g/dL (1.3-4.6); Glucose 124 mg/dL (65-115); Osmolality Calculated 294 mOsm/kg (285-295); Potassium 3.5 mmol/L (3.5-5.1); Sodium 142 mmol/L (136-145); Total Protein 4.9 g/dL (6.6-8.7)
[2025-06-16 07:26] VITALS: BP 99/50; PULSE 68; RESP 18; TEMP 36.3; O2SAT 93
[2025-06-16 11:19] VITALS: BP 122/63; PULSE 65; RESP 18; TEMP 36.4; O2SAT 95
--- NOTE | 2025-06-16 14:11 | P.PN_ITS ---
Subjective 2 Subjective: He rested well last night. There was no agitation. He is now alert and fully oriented. He had 3 bowel movements yesterday. He had 1 bowel movement this morning. Patient's and son would like for him to go to SNF for rehab. They are concerned about generalized weakness and his ability to care for himself. Medications: Reviewed: Yes Vitals/I&O/Wt Last Vital Signs Temp 97.5 F L 06/16/25 11:19 Pulse 65 06/16/25 11:19 Resp 18 06/16/25 11:19 BP 122/63 06/16/25 11:19 Pulse Ox 95 06/16/25 11:19 O2 Del Method Room Air 06/16/25 11:19 06/15/25 06/16/25 06/16/25 22:59 06:59 14:59 Intake Total 480 / 1220 720 / 720 Balance 480 / 620 720 / 720 Weight last 48 hrs Weight 108.908 kg Weight 109.27 kg Weight 109.372 kg Physical Exam 2 Narrative: GEN: Alert, no acute distress HEENT: Normocephalic, atraumatic, PERRLA Neck: Supple Respiratory: No respiratory distress, clear to auscultation bilaterally Cardio: Regular rate and rhythm, S1, S2, no murmur, no JVD Abdomen: Soft, nontender, nondistended, normoactive bowel sounds Neuro: Oriented x 3, no focal neurodeficits Extremity: Warm, no edema Data 06/16/25 05:06 06/16/25 05:06 Micro: Microbiology 06/14/25 11:55 Blood Culture - Preliminary Blood NEGATIVE TO DATE 06/14/25 11:53 Blood Culture - Preliminary Blood NEGATIVE TO DATE A&P Assessment and plan 1. Hepatic encephalopathy: His mental status is back at baseline Continue lactulose, titrate for 2-3 bowel movements a day Continue rifaximin Monitor mental status for improvement 2. Non-alcoholic micronodular cirrhosis of liver: Continue Lasix and spironolactone Also on nadolol for secondary prevention of varices 3. Short bowel syndrome: He has had colon cancer twice status post resection 4. Chronic diarrhea: This is due to short-bowel syndrome. It is worsened by use of lactulose for his hepatic encephalopathy 5. Monoclonal gammopathy of undetermined significance: Followed by oncology 6. Type 2 diabetes mellitus: Sliding scale insulin 7. Peripheral neuropathy: He is on gabapentin 8. Generalized weakness: He has generalized weakness and falls frequently at home. PT and OT consults 9. Falls frequently: Plan: Disposition: Pending PT and OT consults for possible SNF placement Full code SCDs for DVT prophylaxis PDMP PDMP Reviewed: Not Reviewed Attestations 2 Medical Necessity Statement*: He requires continued hospitalization. Discharge pending PT and OT evaluation for possible SNF placement. Coding Level of Care Code Acute Code for [facility] Fwd Diagnoses Hepatic encephalopathy K76.82 Non-alcoholic micronodular cirrhosis of liver K74.69 Short bowel syndrome K90.829 Chronic diarrhea K52.9 Monoclonal gammopathy of undetermined significance D47.2 Type 2 diabetes mellitus E11.9 Peripheral neuropathy G62.9 Generalized weakness R53.1 Falls frequently R29.6
[2025-06-16 16:00] VITALS: BP 109/61; PULSE 73; RESP 18; TEMP 36.5; O2SAT 93
--- NOTE | 2025-06-16 17:15 | XRR_ITS ---
PROCEDURE INFORMATION: Exam: XR Left Hip Exam date and time: 06/16/2025 5:24 PM Age: 70 years old Clinical indication: Hip pain; Left hip; Additional info: Pain, with pel TECHNIQUE: Imaging protocol: Radiologic exam of the left hip. Views: 2 or 3 views hip with pelvis when performed. COMPARISON: CT abdomen pelvis wo con [id number] 04/25/2025 3:13 AM FINDINGS: Tubes, catheters and devices: Prostate brachytherapy seeds are noted. Bones/joints: No evidence of acute fracture or dislocation. Mild bilateral hip arthropathy noted. Minimal sacroiliac degenerative change. No destructive lesions are perceived. Soft tissues: Unremarkable. XR/XR hip LT 2-3V wo/w pel* [id number] IMPRESSION: No evidence of acute fracture. Mild bilateral hip osteoarthritis.
[2025-06-16 19:38] VITALS: BP 132/71; PULSE 73; RESP 18; TEMP 37.1; O2SAT 94
[2025-06-16] MEDS: MELATONIN 3 MG TABLET 6 MG PO (20:35)
[2025-06-16 22:00] VITALS: PULSE 73
[2025-06-17] VITALS (9 sets, daily range): BP systolic 113–127; BP diastolic 54–69; PULSE 57–96; RESP 16–20; TEMP 36.4–37.2; O2SAT 91–96
[2025-06-17 04:05] LABS: Hematocrit 33.2 % (37-53); Hemoglobin 11.50 g/dL (11.27-16.99); Mean Corpuscular HGB Conc 34.6 g/dL (30-55); Mean Corpuscular Hemoglobin 32.7 pg (27-33); Mean Corpuscular Volume 94.3 fl (82-101); Nucleated Red Blood Cells % 0 %; Platelet Count 31 10^3/cmm (157-399); Red Blood Count 3.52 10^6/uL (3.85-5.65); White Blood Count 3.30 10^3/uL (3.29-11.43)
[2025-06-17 04:30] LABS: Alanine Aminotransferase 14 U/L (0-41); Albumin Level 3.4 g/dL (3.5-5.2); Alkaline Phosphatase 96 U/L (40-130); Aspartate Amino Transferase 29 U/L (0-40); Blood Urea Nitrogen 14 mg/dL (8-23); Calcium 8.3 mg/dL (8.5-10.5); Carbon Dioxide 18 mmol/L (22-29); Chloride 105 mmol/L (98-107); Creatinine Clr Calc Pharmacy 113.8542; Globulin 2.2 g/dL (1.3-4.6); Glucose 202 mg/dL (65-115); Osmolality Calculated 288 mOsm/kg (285-295); Sodium 136 mmol/L (136-145); Total Protein 5.6 g/dL (6.6-8.7)
[2025-06-17 04:37] LABS: Anion Gap 16.7 (5-19); Potassium 3.7 mmol/L (3.5-5.1)
[2025-06-17] MEDS: lactulose oral liq 20 gm/30 mL UDC 15 GM PO (05:27)
[2025-06-17] MEDS: multivitamin therapeutic Tablet 1 TAB PO (05:27)
--- NOTE | 2025-06-17 09:25 | PC.CHAP ---
Pastoral Care Encounter/Spiritual Assessment Type of Contact [] Declined change director visit [] Patient/Family/Request visit [] Outpatient visit [] Follow-up visit [] Physician referral [] Code/Alert [x] Routine visit [] Staff referral [] Actively dying [x] Patient sleeping [] Family support [] [] Out of room [] Palliative care [] [] Receiving care in room [] Pre-surgical visit [] Trauma [] Long length of stay [] ICU visit [] Other: Relational/Emotional Strength [] Patient feels connected with others/family/visitors/staff [] Distress [] Loneliness/isolation [] Abandonment Spirituality of Patient [] Person of Ifeoma [] Attends Yazidism of their Ifeoma [] Believes in Prayer [] Reads Bible or Anabaptism materials [] There are Spiritual issues to be addressed Prorate Clerk Interventions [x] Prayer [] Active listening [] Non-anxious presence [] Spiritual/emotional support [] Crisis/trauma care [] Spiritual counseling [] Bereavement support [] Provided bereavement packet [] Provided Bible/devotional materials [] Provided toy/stuffed animal, coloring book to patient or family member [] Provided Communion [] Anointing/[place] [] Salvation [] Completed spiritual assessment [] Other: Impact on Illness or Injury [] Angry [] Fearful [] Anxious [] Often cries [] Exhaustion [] Unable to work [] Unable to attend quaker [] Unable to walk/stand [] Unable to read [] Unable to drive [] Unable to eat/drink [] Unable to sleep [] Unable to be with family [] Patient intubated [] Other: Summary Time spent with patient
--- NOTE | 2025-06-17 14:30 | P.PN_ITS ---
Subjective 2 Subjective: Hospital course, labs appreciated. Patient seen sitting up in chair. States he is feeling a lot better. Seems to be back to his baseline. Spouse at bedside who confirms patient is back to his baseline mentation. Denies any nausea, vomiting, headache. Does complain of restless night. Did have left lower quadrant abdominal pain earlier in the morning which is resolved. Medications: Reviewed: Yes Vitals/I&O/Wt Last Vital Signs Temp 97.5 F L 06/17/25 11:05 Pulse 59 L 06/17/25 11:05 Resp 18 06/17/25 11:05 BP 126/54 06/17/25 11:05 Pulse Ox 95 06/17/25 11:05 O2 Del Method Room Air 06/17/25 11:05 06/16/25 06/17/25 06/17/25 22:59 06:59 14:59 Intake Total 720 / 1440 840 / 840 Output Total 350 / 350 Balance 370 / 1090 840 / 840 Weight last 48 hrs Weight 110.903 kg Weight 108.908 kg Physical Exam 2 Narrative: GEN: Alert, no acute distress HEENT: Normocephalic, atraumatic, PERRLA Neck: Supple Respiratory: No respiratory distress, clear to auscultation bilaterally Cardio: Regular rate and rhythm, S1, S2, no murmur, no JVD Abdomen: Soft, nontender, nondistended, normoactive bowel sounds Neuro: Oriented x 3, no focal neurodeficits Extremity: Warm, no edema Data 06/17/25 02:24 06/17/25 02:24 A&P Assessment and plan 1. Hepatic encephalopathy: His mental status is back at baseline Continue lactulose, titrate for 2-3 bowel movements a day Continue rifaximin Monitor mental status for improvement 2. Non-alcoholic micronodular cirrhosis of liver: Continue Lasix and spironolactone Also on nadolol for secondary prevention of varices 3. Short bowel syndrome: He has had colon cancer twice status post resection 4. Chronic diarrhea: This is due to short-bowel syndrome. It is worsened by use of lactulose for his hepatic encephalopathy 5. Monoclonal gammopathy of undetermined significance: Followed by oncology 6. Type 2 diabetes mellitus: Sliding scale insulin 7. Peripheral neuropathy: He is on gabapentin 8. Generalized weakness: He has generalized weakness and falls frequently at home. PT and OT consults 9. Falls frequently: Plan: Plan for today: Continue with current home medications. Patient euvolemic. Appreciate labs. Blood cultures so far negative. Holding off on antibiotics. PT/OT. Discharge plan: Plan to discharge to SNF as family is not able to take care of the patient at home, has had multiple falls. Confirmed with patient and spouse at bedside. Both are agreeable. Would like to go to [facility] if possible. Full code Cardiac diet carb consistent Protonix OPD prophylaxis Heparin for DVT prophylaxis PDMP PDMP Reviewed: Not Reviewed Attestations 2 Medical Necessity Statement*: Requires further hospitalization while safe discharge planning is sought at an elderly admitted post fall, altered mental status due to elevated ammonia levels Diagnoses Hepatic encephalopathy K76.82 Non-alcoholic micronodular cirrhosis of liver K74.69 Short bowel syndrome K90.829 Chronic diarrhea K52.9 Monoclonal gammopathy of undetermined significance D47.2 Type 2 diabetes mellitus E11.9 Peripheral neuropathy G62.9 Generalized weakness R53.1 Falls frequently R29.6
[2025-06-17] MEDS: heparin 5,000 unit/mL INJ 1 mL 5000 UNIT SUBCUT (15:21)
[2025-06-17] MEDS: MELATONIN 3 MG TABLET 6 MG PO (20:33)
[2025-06-18] MEDS: heparin 5,000 unit/mL INJ 1 mL 5000 UNIT SUBCUT (02:19)
[2025-06-18 03:55] VITALS: BP 110/66; PULSE 63; RESP 16; TEMP 36.7; O2SAT 93
[2025-06-18] MEDS: lactulose oral liq 20 gm/30 mL UDC 15 GM PO (05:18)
[2025-06-18] MEDS: multivitamin therapeutic Tablet 1 TAB PO (05:19)
[2025-06-18 05:51] LABS: Hematocrit 34.3 % (37-53); Hemoglobin 11.60 g/dL (11.27-16.99); Mean Corpuscular HGB Conc 33.8 g/dL (30-55); Mean Corpuscular Hemoglobin 32.9 pg (27-33); Mean Corpuscular Volume 97.2 fl (82-101); Nucleated Red Blood Cells % 0 %; Platelet Count 41 10^3/cmm (157-399); Red Blood Count 3.53 10^6/uL (3.85-5.65); White Blood Count 2.04 10^3/uL (3.29-11.43)
[2025-06-18 06:17] LABS: Alanine Aminotransferase 11 U/L (0-41); Albumin Level 3.3 g/dL (3.5-5.2); Alkaline Phosphatase 84 U/L (40-130); Aspartate Amino Transferase 23 U/L (0-40); Blood Urea Nitrogen 15 mg/dL (8-23); Calcium 8.1 mg/dL (8.5-10.5); Carbon Dioxide 19 mmol/L (22-29); Chloride 106 mmol/L (98-107); Creatinine Clr Calc Pharmacy 115.2468; Globulin 1.7 g/dL (1.3-4.6); Glucose 114 mg/dL (65-115); Osmolality Calculated 288 mOsm/kg (285-295); Sodium 138 mmol/L (136-145); Total Protein 5.0 g/dL (6.6-8.7)
[2025-06-18 06:22] LABS: Anion Gap 17.1 (5-19); Potassium 4.1 mmol/L (3.5-5.1)
[2025-06-18 07:38] VITALS: BP 143/58; PULSE 64; RESP 19; TEMP 36.6; O2SAT 92
[2025-06-18 08:00] VITALS: BP 139/68; PULSE 75; RESP 19; TEMP 36.4
[2025-06-18 11:17] VITALS: BP 139/68; PULSE 75; RESP 19; TEMP 36.4; O2SAT 94
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
[2025-06-18 15:43] VITALS: BP 109/56; PULSE 67; RESP 18; TEMP 36.8; O2SAT 95
--- NOTE | 2025-06-18 16:26 | PC.OT ---
OT TREATMENT HELD THIS DATE PATIENT IS SCHEDULED FOR D/C
[2025-06-18 16:57] VITALS: BP 119/60; PULSE 72; RESP 16; TEMP 36.7; O2SAT 95
== END 2025-06-18 16:30 | disposition home health service (06) ==
LOC: ER 15:10 → MEDSURG 16:52
PROVIDERS: Admitting Provider Student in an Organized Health Care Education/Training Program; Emergency Provider Physician Assistant; PCP Internal Medicine; Visit Provider Student in an Organized Health Care Education/Training Program
DX: R41.82 Altered mental status, unspecified (principal); K76.82 Hepatic encephalopathy; K74.69 Other cirrhosis of liver; K90.829 Short bowel syndrome, unspecified; K52.9 Noninfective gastroenteritis and colitis, unspecified; D47.2 Monoclonal gammopathy; E11.9 Type 2 diabetes mellitus without complications; G62.9 Polyneuropathy, unspecified; R53.1 Weakness; R29.6 Repeated falls; Z85.038 Personal history of other malignant neoplasm of large intestine
CPT/HCPCS: 36415; 36416; 70450; 71045; 73502; 80053; 81001; 82140; 82550; 82962; 83605; 83690; 83735; 83880; 84100; 84145; 84484; 85025; 85610; 86140; 87040; 87637; 94664; 96361; 96372; 96374; 96375; 96376; 97116; 97161; 97166; 97530; 97535; 99285; G0378; J1630; J1644; J1815; J2060; J7030; J9999

== ENCOUNTER 2025-07-25 18:44 | Observation (INO) | payer MEDICARE, SELFPAY ==
[2025-07-25] VITALS (8 sets, daily range): BP systolic 94–130; BP diastolic 51–64; PULSE 55–69; RESP 16–17; TEMP 36.2–38.4; O2SAT 90–95; BMI 29.0
--- NOTE | 2025-07-25 18:43 | XRR_ITS ---
PROCEDURE INFORMATION: Exam: XR Chest Exam date and time: 07/25/2025 6:51 PM Age: 70 years old Clinical indication: Shortness of breath; Additional info: SOB TECHNIQUE: Imaging protocol: Radiologic exam of the chest. Views: 1 view. COMPARISON: CR XR chest 1V portable [id number] 06/14/2025 12:01 PM FINDINGS: Lungs: Otherwise clear lungs. Pleural spaces: Interval appearance of small right pleural effusion with comparison made to 06/14/2025. Heart/Mediastinum: Unremarkable. No cardiomegaly. Bones/joints: Degenerative changes thoracic spine. XR/XR chest 1V portable [id number] IMPRESSION: 1. Interval appearance of small right pleural effusion with comparison made to 06/14/2025. 2. Otherwise clear lungs.
--- NOTE | 2025-07-25 18:50 | ECG_ITS ---
[facility] 2025-[facility]25 Pat Name: Jeremy Melgar Department: Room: Gender: Male Digital Marketing Assistant: : 1955 Requested By: Meche Tirado Order Number: [id number] Adithya MD: Daisy Caal M.D. Measurements Intervals [place] Rate: 68 P: 149 CA: 219 QRS: 144 QRSD: 90 T: 151 QT: 410 QTc: 439 Interpretive Statements SINUS RHYTHM WITH FIRST DEGREE AV BLOCK LATERAL MYOCARDIAL INFARCTION , OF INDETERMINATE AGE [40+ ms Q WAVE AND/OR ST/T ABNORMALITY IN I/aVL/V5/V6] Compared to ECG 09/28/2024 03:22:38 First degree AV block now present Myocardial infarct finding now present Supraventricular tachycardia no longer present T-wave abnormality no longer present Electronically Signed On 07-27-2025 14:08:56 [employer]LEGE ADMISSIONS COUNSELOR by Daisy Caal M.D. [email or web address]
--- OUTSIDE RECORDS SUMMARY | 2025-07-25 18:51 | XMS_ITS | Continuity of Care Document ---
Author Organization [facility], [facility] ([facility]) Address [address] [place] [address] Assessment No assessment recorded. Plan of Treatment Reminders Order Date Submit Date Provider Last Modified By Organization Details Last Modified Time Details Appointments None record ed. Lab None record ed. Referral None record ed. Procedures None record ed. Surgeries None record ed. Imaging None record ed. Medication Orders None record ed. Patient TargetsNo targets recorded. Patient Instructions Encounter Date Encounter Id Patient Instructions Last Modified By Organization Details Last Modified Time 05/08/2025 [id number] Planning to d/c home after short stay at SNF after hospital stay for weakness. Did well with therapy. follow up with pcp 7-14 days after discharge. Will need manual wheelchair due to weakness, and walker will not suffice. He will need this for a lifetime. [email or web address] Not available 05/08/2025 14:54:36 Reason for Referral None Reported. Problems Name Problem SNOMED Code Status Onset Date Resolution Date Notes Provider Name and Address Organization Details Recorded Time Hospital inpatient stay within past 30 days 4127421180477 Active 2024 [facility] 14:23:39 Septic shock 43900651 Active 2024 [facility] 14:23:40 Enteritis of intestine 1180043531 Active 2024 [facility] 14:23:59 Cirrhosis - non-alcoho lic 536720868 Active 2024 GABE SHELTON [facility] 13:51:49 Asthenia 81512194 Active 2024 GABE SHELTON [facility] 13:51:47 Clostridiu m difficile diarrhea 1795439724001 Active 2024 GABE SHELTON [facility] 13:51:47 Hepatic encephalop athy 11586766 Active 2024 GABE SHELTON [facility] 13:51:50 Problem Notes None recorded. Medical Equipment None Reported. Medications Name Sig Start Date Stop Date Status Note LastModified by Organization Details LastModified Time furosemide 40 mg tablet TAKE 1 TABLET BY MOUTH EVERY DAY active Not Available Not Available No t Available metformin 500 mg tablet TAKE 1 TABLET BY MOUTH TWICE DAILY active Not Available Not Available No t Available gabapentin 600 mg tablet TAKE 1 TABLET BY MOUTH THREE TIMES DAILY active Not Available Not Available No t Available doxycycline hyclate 100 mg capsule take 1 capsule BY MOUTH TWICE DAILY FOR SEVEN DAYS active Not Available Not Available No t Available diphenoxylate- atropine 2.5 mg-0.025 mg tablet TAKE 1 TABLET BY MOUTH TWICE DAILY NEEDED FOR diarrhea active Not Available Not Available No t Available vancomycin 125 mg capsule GIVE 1 CAPSULE BY MOUTH FOUR TIMES DAILY FOR 6 DAYS active Not Available Not Available No t Available nadolol 20 mg tablet TAKE 1 TABLET BY MOUTH EVERY DAY active Not Available Not Available No t Available famotidine 20 mg tablet TAKE 1 TABLET BY MOUTH TWICE DAILY active Not Available Not Available No t Available tamsulosin 0.4 mg capsule take 1 capsule BY MOUTH EVERY DAY active Not Available Not Available No t Available trazodone 100 mg tablet TAKE 1 TABLET BY MOUTH AT BEDTIME active Not Available Not Available No t Available cephalexin 500 mg capsule take 1 capsule BY MOUTH THREE TIMES DAILY FOR SEVEN DAYS active Not Available Not Available No t Available gabapentin 300 mg capsule take 1 capsule BY MOUTH THREE TIMES DAILY active Not Available Not Available No t Available spironolactone 50 mg tablet TAKE 1 TABLET BY MOUTH EVERY DAY active Not Available Not Available No t Available Constulose 10 gram/15 mL oral solution TAKE 30ML BY MOUTH TWICE DAILY active Not Available Not Available No t Available Vitals Date Recorded Body weight Heart rate Respiratory rate Body temperature Oxygen saturation Systolic And Diastolic Provider Name and Address Organization Details Last Updated DateTime 5 524378. 17 g 59 /min 18 /min 97.2 [degF] 93 % 122/61 mm[Hg] GABE SHELTON [facility] 5 14:52:00 Social History None recorded. Functional Status None recorded. Mental Status None recorded. Family History Nothing Reported. Medical History No medical history recorded. Immunizations Vaccine Type Date Status Note Provider Nam e and Address Organization Details Recorded Time Influenza, split virus, trivalent, preservative 0 completed Not Available [facility] 05/08/2025 12:37:51 Hep A, adult 0 completed Not Available [facility] 05/08/2025 12:37:51 COVID-19, mRNA, LNP-S, PF, 100 mcg/0.5mL dose or 50 mcg/0.25mL dose 1 completed Not Available [facility] 05/08/2025 12:37:51 COVID-19, mRNA, LNP-S, PF, 100 mcg/0.5mL dose or 50 mcg/0.25mL dose 1 completed Not Available [facility] 05/08/2025 12:37:51 Hep A, adult 1 completed Not Available [facility] 05/08/2025 12:37:51 Influenza, split virus, trivalent, preservative 1 completed Not Available [facility] 05/08/2025 12:37:51 COVID-19, mRNA, LNP-S, PF, 100 mcg/0.5mL dose or 50 mcg/0.25mL dose 1 completed Not Available [facility] 05/08/2025 12:37:51 zoster recombinant 2 completed Not Available [facility] 05/08/2025 12:37:51 zoster recombinant 2 completed Not Available [facility] 05/08/2025 12:37:51 COVID-19, mRNA, LNP-S, bivalent, PF, 30 mcg/0.3 mL dose 2 completed Not Available [facility] 05/08/2025 12:37:51 Influenza, high-dose, quadrivalent, PF 2 completed Not Available [facility] 05/08/2025 12:37:51 Influenza, high-dose, trivalent, PF 4 completed Not Available [facility] 05/08/2025 12:37:51 COVID-19, mRNA, LNP-S, PF, vane-sucrose, 30 mcg/0.3 mL 4 completed Not Available [facility] 05/08/2025 12:37:51 Pneumococcal conjugate PCV21, polysaccharide [id number] conjugate, PF 5 completed Not Available [facility] 05/08/2025 12:37:51 Past Encounters Encounter ID Performer Location Encounter Start Date Encounter Closed Date Diagnosis/Indication Diagnosis SNOMED-CT Code Diagnosis ICD10 Code Diagnosis IMO Codes Diagnosis Note [id number] Jay Hung DO [facility] ([facility]) [address] [place] [address] 05/01/2025 11:50:20 05/02/2025 10:04:36 Hospital inpatient stay within past 30 days 4459568902 106 Z76.89 Asthenia 18618068 R53.1 88510 Clostridiu m difficile diarrhea 4777617584 102 A04.72 318981 Cirrhosis - non-alcoholic 612800451 K74.60 332626 Hepatic encephalopathy 38904568 K76.82 9416 [id number] Jay Hung DO [facility] ([facility]) [address] [place] [address] 05/08/2025 12:37:41 05/13/2025 11:50:54 Asthenia 27904193 R53.1 46022 Hepatic encephalopathy 04472968 K76.82 9416 Cirrhosis - non-alcoholic 311941537 K74.60 331292 Health Concerns Section Related Observation LastModified by Organization Detai ls LastModified Time None Recorded Concern Status LastModified by Organization Details LastModified Time None Recorded Payers Encounter Date Sequence Insurance Name Policy Number Policy Anderson Covered Member ID Anderson Member ID Guarantor Name 05/08/2025 1 [employer] (MEDICARE REPLACEMENT/A DVANTAGE - PPO) Jeremy Melgar [id number] Jeremy Melgar Notes Date Note Type Note Provider Name and Address Organization Details Recorded Time 05/08/2025 text/html Care Management - GeneralReported by PatientHPIFor prognosis, patient reportsexpected outcome: improve. For context, patient reportsnot current smoker. For medication therapy, patient reportscompliant with follow-up visitsandcompliance with oral medication is good.ROS as noted in the HPI visit for d/c orders. Jay Hung, DO [address] [place] [address], [phone], [facility] 05/08/2025 15:20:46
--- OUTSIDE RECORDS SUMMARY | 2025-07-25 18:51 | XMS_ITS | Continuity of Care Document ---
Author Organization [facility], [facility] ([facility]) Address [address] [place] [address] Assessment No assessment recorded. Plan of Treatment [...] Modified By Organization Details Last Modified Time 05/01/2025 [id number] Hospital records reviewed. Admitted with recurrent falls in setting of dehydration with c.diff. Also confused as lactulose had been stopped. Improving now. Admitted for therapy. Change lactulose to bid to avoid nighttime stools. Labs on Tuesday. [email or web address] Not available 05/01/2025 14:17:31 Reason for Referral None Reported. Problems Name Problem SNOMED Code Status Onset Date Resolution Date Notes Provider Name and Address Organization Details Recorded Time Hospital inpatient stay within past 30 days 4789819595689 Active 2024 [facility] 14:23:39 Septic shock 71458170 Active 2024 [facility] 14:23:40 Enteritis of intestine 3690107950 Active [facility] 14:23:59 Cirrhosis - non-alcoho lic 101778062 Active 2024 [facility] 13:51:49 Asthenia 83327008 [facility] 13:51:47 Clostridiu m difficile diarrhea 5404923537219 [facility] 13:51:47 Hepatic encephalop athy 61035961 Active [facility] 13:51:50 Problem Notes None recorded. Medical [...] Address Organization Details Last Updated DateTime 5 497444. 17 g 66 /min 16 /min 98.4 [degF] 94 % 115/51 mm[Hg] GABE SHELTON [facility] 5 13:49:47 Social History None recorded. Functional Status None recorded. Mental Status None recorded. Family History Nothing Reported. Medical History No medical history recorded. Immunizations Vaccine Type Date Status Note Provider Nam e and Address Organization Details Recorded Time Influenza, split virus, trivalent, preservative 0 completed Not Available [facility] 05/08/2025 12:37:51 Hep A, adult 0 completed Not Available [facility] 05/08/2025 12:37:51 COVID-19, mRNA, LNP-S, PF, 100 mcg/0.5mL dose or 50 mcg/0.25mL dose 1 completed Not Available [facility] 05/08/2025 12:37:51 COVID-19, mRNA, LNP-S, PF, 100 mcg/0.5mL dose or 50 mcg/0.25mL dose 1 completed Not Available [facility] 05/08/2025 12:37:51 Hep A, adult 1 completed Not Available [facility] 05/08/2025 12:37:51 Influenza, split virus, trivalent, preservative 1 completed Not Available [facility] 05/08/2025 12:37:51 COVID-19, mRNA, LNP-S, PF, 100 mcg/0.5mL dose or 50 mcg/0.25mL dose 1 completed Not Available [facility] 05/08/2025 12:37:51 zoster recombinant 2 completed Not Available [facility] 05/08/2025 12:37:51 zoster recombinant 2 completed Not Available [facility] 05/08/2025 12:37:51 COVID-19, mRNA, LNP-S, bivalent, PF, 30 mcg/0.3 mL dose 2 completed Not Available [facility] 05/08/2025 12:37:51 Influenza, high-dose, quadrivalent, PF 2 completed Not Available [facility] 05/08/2025 12:37:51 Influenza, high-dose, trivalent, PF 4 completed Not Available [facility] 05/08/2025 12:37:51 COVID-19, mRNA, LNP-S, PF, vane-sucrose, 30 mcg/0.3 mL 4 completed Not Available [facility] 05/08/2025 12:37:51 Pneumococcal conjugate PCV21, polysaccharide [id number] conjugate, PF 5 completed Not Available [facility] 05/08/2025 12:37:51 Past Encounters Encounter ID Performer Location Encounter Start Date Encounter Closed Date Diagnosis/Indication Diagnosis SNOMED-CT Code Diagnosis ICD10 Code Diagnosis IMO Codes Diagnosis Note [id number] Jay Hung DO [facility]) [address] [place] [address] 05/01/2025 11:50:20 05/02/2025 10:04:36 Hospital inpatient stay within past 30 days 3096880663 106 Z76.89 Asthenia 49223699 R53.1 82175 Clostridiu m difficile diarrhea 8411962371 102 A04.72 452342 Cirrhosis - non-alcoholic 633375110 K74.60 202537 Hepatic encephalopathy 15578997 K76.82 9416 Health Concerns Section Related Observation LastModified by Organization Detai ls LastModified Time None Recorded Concern Status LastModified by Organization Details LastModified Time None Recorded Payers Encounter Date Sequence Insurance Name Policy Number Policy Anderson Covered Member ID Anderson Member ID Guarantor Name 05/01/2025 2 MEDICARE B-[place]: WPS Jeremy Melgar [id number] Jeremy Melgar 05/01/2025 1 [employer] (MEDICARE REPLACEMENT/A DVANTAGE - PPO) Jeremy Ramón [id number] Jeremy Ramón Notes Date Note Type Note Provider Name and Address Organization Details Recorded Time 05/01/2025 text/html Care Management - GeneralReported by PatientHPIFor prognosis, patient reportsexpected outcome: improve. For context, patient reportsnot current smoker. For medication therapy, patient reportscompliant with follow-up visitsandcompliance with oral medication is good.ROS as noted in the HPI new admit, hospital follow up. Jay Hung, [address], [address], [facility] 05/01/2025 14:17:42
--- OUTSIDE RECORDS SUMMARY | 2025-07-25 18:51 | XMS_ITS | Data Portability ---
Author Organization [facility] Address [address] [address] Assessment No assessment recorded. Plan of Treatment [...] Modified By Organization Details Last Modified Time 10/10/2024 [id number] Records reviewed . Admitted for encephalopathy, tx with lactulose. Mentation improved. Hospital course complicated by UTI, pneumonia and C.Diff. Tx wtih bipap and abx. Planning to work with therapy at SNF. Blood pressure too low, will d/c Aldactone. On nadolol for varices. Labs in a week. [email or web address] Not available 10/10/2024 14:26:17 05/01/2025 [id number] Hospital records reviewed. Admitted with recurrent falls in setting of dehydration with c.diff. Also confused as lactulose had been stopped. Improving now. Admitted for therapy. Change lactulose to bid to avoid nighttime stools. Labs on Tuesday. [email or web address] Not available 05/01/2025 14:17:31 05/08/2025 [id number] Planning to d/c home after short stay at SNF after hospital stay for weakness. Did well with therapy. follow up with pcp 7-14 days after discharge. Will need manual wheelchair due to weakness, and walker will not suffice. He will need this for a lifetime. [email or web address] Not available 05/08/2025 14:54:36 Reason for Referral None Reported. Problems Name Problem SNOMED Code Status Onset Date Resolution Date Notes Provider Name and Address Organization Details Recorded Time Hospital inpatient stay within past 30 days [id number] Active 2024 GABE SHELTON [facility] 14:23:39 Septic shock 58769686 Active 2024 GABE SHELTON [facility] 14:23:40 Enteritis of intestine 5722964987 Active 2024 GABE SHELTON [facility] 14:23:59 Cirrhosis - non-alcoho lic 371689000 Active 2024 GABE SHELTON [facility] 13:51:49 Asthenia 95529181 Active 2024 GABE SHELTON [facility] 13:51:47 Clostridiu m difficile diarrhea 1396516936011 Active 2024 GABE SHELTON [facility] 13:51:47 Hepatic encephalop athy 40744762 Active 2024 GABE SHELTON [facility] 13:51:50 Problem Notes None recorded. [...] Address Organization Details Last Updated DateTime 5 687951. 32 g 95 /min 16 /min 98.2 [degF] 95 % 101/55 mm[Hg] [facility] 5 14:21:36 Date Recorded Body weight Heart rate Respiratory rate Body temperature Oxygen saturation Systolic And Diastolic Provider Name and Address Organization Details Last Updated DateTime 5 654758. 17 g 66 /min 16 /min 98.4 [degF] 94 % 115/51 mm[Hg] [facility] 5 13:49:47 Date Recorded Body weight Heart rate Respiratory rate Body temperature Oxygen saturation Systolic And Diastolic Provider Name and Address Organization Details Last Updated DateTime 5 167609. 17 g 59 /min 18 /min 97.2 [degF] 93 % 122/61 mm[Hg] [facility] 5 14:52:00 Social History None recorded. Functional Status None recorded. Mental Status None recorded. Family History Nothing Reported. Medical History No medical history recorded. Immunizations Vaccine Type Date Status Note Provider Nam e and Address Organization Details Recorded Time Influenza, split virus, trivalent, preservative 0 completed Not Available [facility] 05/08/2025 12:37:51 Hep A, adult 0 completed Not Available [facility] 05/08/2025 12:37:51 COVID-19, mRNA, LNP-S, PF, 100 mcg/0.5mL dose or 50 mcg/0.25mL dose 1 completed Not Available [facility] 05/08/2025 12:37:51 COVID-19, mRNA, LNP-S, PF, 100 mcg/0.5mL dose or 50 mcg/0.25mL dose 1 completed Not Available [facility] 05/08/2025 12:37:51 Hep A, adult 1 completed Not Available [facility] 05/08/2025 12:37:51 Influenza, split virus, trivalent, preservative 1 completed Not Available [facility] 05/08/2025 12:37:51 COVID-19, mRNA, LNP-S, PF, 100 mcg/0.5mL dose or 50 mcg/0.25mL dose 1 completed Not Available [facility] 05/08/2025 12:37:51 zoster recombinant 2 completed Not Available [facility] 05/08/2025 12:37:51 zoster recombinant 2 completed Not Available [facility] 05/08/2025 12:37:51 COVID-19, mRNA, LNP-S, bivalent, PF, 30 mcg/0.3 mL dose 2 completed Not Available [facility] 05/08/2025 12:37:51 Influenza, high-dose, quadrivalent, PF 2 completed Not Available [facility] 05/08/2025 12:37:51 Influenza, high-dose, trivalent, PF 4 completed Not Available [facility] 05/08/2025 12:37:51 COVID-19, mRNA, LNP-S, PF, vane-sucrose, 30 mcg/0.3 mL 4 completed Not Available [facility] 05/08/2025 12:37:51 Pneumococcal conjugate PCV21, polysaccharide [id number] conjugate, PF 5 completed Not Available [facility] 05/08/2025 12:37:51 Past Encounters Encounter ID Performer Location Encounter Start Date Encounter Closed Date Diagnosis/Indication Diagnosis SNOMED-CT Code Diagnosis ICD10 Code Diagnosis IMO Codes Diagnosis Note [id number] Jay Hung [facility]) [address] [place] [address] 10/10/2024 12:10:45 10/23/2024 08:03:54 Hospital inpatient stay within past 30 days [id number] 106 Z76.89 Septic shock 76870385 R6 5.21 Enteritis of intestine 5715617747 K52.9 Pneumonia 704956971 J18. 9 Cirrhosis - non-alcoholic 580941830 K74.60 [id number] Jay Hung [facility]) [address] [place] [address] 05/01/2025 11:50:20 05/02/2025 10:04:36 Hospital inpatient stay within past 30 days 2345729598 106 Z76.89 Asthenia 78800526 R53.1 45555 Clostridiu m difficile diarrhea 4277042268 102 A04.72 200445 Cirrhosis - non-alcoholic 194605249 K74.60 177793 Hepatic encephalopathy 50037608 K76.82 9416 [id number] Jay Hung [facility] [address] [place] [address] 05/08/2025 12:37:41 05/13/2025 11:50:54 Asthenia 98493537 R53.1 82342 Hepatic encephalopathy 35754233 K76.82 9416 Cirrhosis - non-alcoholic 800346254 K74.60 261204 Health Concerns Section Related Observation LastModified by Organization Detai ls LastModified Time None Recorded Concern Status LastModified by Organization Details LastModified Time None Recorded Advance Directives Directive None Recorded Payers Insurance Date Sequence Insurance Name Policy Number Policy Anderson Covered Member ID Anderson Member ID Guarantor Name 05/02/2025 2 MEDICARE B-[place]: WPS Jeremy Ramón [id number] Jeremy Melgar 05/08/2025 1 [employer] (MEDICARE REPLACEMENT/A DVANTAGE - PPO) Jeremy Melgar [id number] Jeremy Melgar Notes Date Note Type Note Provider Name and Address Organization Details Recorded Time 10/10/2024 text/html Care Management - GeneralReported by PatientIFor prognosis, patient reportsexpected outcome: improve. For context, patient reportsnot current smoker. For medication therapy, patient reportscompliant with follow-up visitsandcompliance with oral medication is good.ROS as noted in the HPI Jay Hung DO [address] [place], [place] [address], [facility] 10/19/2024 15:16:54 05/01/2025 text/html Care Management - GeneralReported by PatientIFor prognosis, patient reportsexpected outcome: improve. For context, patient reportsnot current smoker. For medication therapy, patient reportscompliant with follow-up visitsandcompliance with oral medication is good.ROS as noted in the [facility] new admit, hospital follow up. Jay DO Abhilash [address] [place] [address], [phone], [facility] 05/01/2025 14:17:42 05/08/2025 text/html Care Management - GeneralReported by PatientIFor prognosis, patient reportsexpected outcome: improve. For context, patient reportsnot current smoker. For medication therapy, patient reportscompliant with follow-up visitsandcompliance with oral medication is good.ROS as noted in the [facility] visit for d/c orders. Jay DO Abhilash [address] [place] [address], [phone], [facility] 05/08/2025 15:20:46
[2025-07-25 18:57] LABS: Hematocrit 38.3 % (37-53); Hemoglobin 12.20 g/dL (11.27-16.99); Mean Corpuscular HGB Conc 31.9 g/dL (30-55); Mean Corpuscular Hemoglobin 31.5 pg (27-33); Mean Corpuscular Volume 99.0 fl (82-101); Nucleated Red Blood Cells % 0 %; Platelet Count 35 10^3/cmm (157-399); Red Blood Count 3.87 10^6/uL (3.85-5.65); White Blood Count 4.57 10^3/uL (3.29-11.43)
[2025-07-25 19:07] LABS: INR 1.26 (0.8-1.2); Prothrombin Time 16.70 SECONDS (12.1-14.9)
[2025-07-25 19:23] LABS: Alanine Aminotransferase 11 U/L (0-41); Albumin Level 2.9 g/dL (3.5-5.2); Alkaline Phosphatase 74 U/L (40-130); Blood Urea Nitrogen 13 mg/dL (8-23); Calcium 6.6 mg/dL (8.5-10.5); Carbon Dioxide 15 mmol/L (22-29); Chloride 114 mmol/L (98-107); Globulin 1.8 g/dL (1.3-4.6); Glucose 121 mg/dL (65-115); NT Pro B Type Natriuretic Pept 462 pg/mL (0-125); Osmolality Calculated 289 mOsm/kg (285-295); Sodium 139 mmol/L (136-145); Total Protein 4.7 g/dL (6.6-8.7)
--- NOTE | 2025-07-25 19:23 | W.ED.WEAKNES ---
HPI - Weakness General: Chief complaint: Weakness Stated complaint: SOB Time Seen by Provider: 07/25/25 18:46 Source: patient and EMS Mode of arrival: EMS Limitations: no limitations History of Present Illness: 70-year-old male states that over the last 2 days been having some increasing weakness and along with some shortness of breath. Patient here is febrile with a temp of 101 states he has felt warm as well. He is answer my questions appropriately denies any pain anywhere. States he did have a fall today but denies hitting his head or any injuries. Related Data Home Medications ?Medication ?Instructions ?Recorded ?Confirmed furosemide 40 mg tablet 40 mg PO DAILY 09/26/24 06/14/25 nadolol 20 mg tablet 20 mg PO DAILY 09/26/24 06/14/25 spironolactone 50 mg tablet 50 mg PO DAILY 09/26/24 06/14/25 tamsulosin 0.4 mg capsule 0.4 mg PO DAILY 09/26/24 06/14/25 trazodone 100 mg tablet 100 mg PO BEDTIME 09/26/24 06/14/25 diphenoxylate-atropine 2.5 1 tab PO BID PRN Diarrhea 06/14/25 06/14/25 mg-0.025 mg tablet famotidine 20 mg tablet 20 mg PO BID@0500,1700 PRN Edema 06/14/25 06/14/25 lactulose 10 gram/15 mL oral 15 g PO Q8H PRN Constipation 06/14/25 06/14/25 solution rifaximin 550 mg tablet (Xifaxan) 550 mg PO BID 06/14/25 06/14/25 Previous Rx's ?Medication ?Instructions ?Recorded gabapentin 300 mg capsule 300 mg PO TID #90 caps 04/30/25 multivitamin 1 tab PO DAILY #30 tabs 04/30/25 lactulose 10 gram/15 mL oral 15 g (22.5 mL) PO DAILY #3,785 mL 06/18/25 solution Allergies Allergy/AdvReac Type Severity Reaction Status Date / Time latex Allergy ADR-Itching Verified 06/04/25 11:24 morphine Allergy ADR-Anxiety Verified 06/04/25 11:24 [facility] ED PFSH: Medical History AMS (altered mental status) Non-alcoholic micronodular cirrhosis of liver Peripheral neuropathy Type 2 diabetes mellitus Monoclonal gammopathy of undetermined significance Social History Smoking and tobacco/nicotine status: never used tobacco/nicotine Physical Exam Const: COMMON NORMALS: patient oriented x3 HENMT: COMMON NORMALS: normocephalic and atraumatic HEAD & SCALP: normocephalic and atraumatic Eye: COMMON NORMALS: Equal, round and reactive pupils present and EOMs intact bilaterally PUPIL: Yes Equal, round and reactive pupils present Neck/C-Spine: COMMON NORMALS: full ROM and supple Chest: COMMONS NORMALS: normal inspection of the chest and normal palpation of entire chest wall Resp: COMMON NORMALS: normal respiratory effort, No retractions and No use of accessory muscles AUSCULTATION: rales Cardio: COMMON NORMALS: regular rate, regular rhythm and No murmurs present (Cardio) RATE: regular rate RHYTHM: regular rhythm GI: COMMON NORMALS: Normal to inspection, nondistended, normoactive bowel sounds present, Soft to palpation, non-tender and no masses PALPATION: Yes Soft to palpation Extremity: COMMON NORMALS: normal to inspection and full ROM Neuro: COMMON NORMALS: patient oriented x3, moves all extremities and no focal motor deficits Psych: COMMON NORMALS: mental status grossly normal, Normal thought process present and cooperative THOUGHT PROCESS: Normal thought process present Skin: COMMON NORMALS: no rashes or lesions noted and no wounds GENERAL SKIN EXAM: no rashes or lesions noted Course Vital Signs: Vital signs: Vital Signs Temperature 101.2 F H 07/25/25 19:14 Pulse Rate 69 07/25/25 18:49 Respiratory Rate 16 07/25/25 18:49 Blood Pressure 130/58 07/25/25 19:30 Pulse Oximetry 93 07/25/25 19:30 Oxygen Delivery Me thod Room Air 07/25/25 18:49 MDM - Weakness Medical Decision Making Patient presents with generalized weakness likely from infection. He has no focal deficits is not confused. No signs of stroke. Did have a fever here of 101.2. Urine shows likely a UTI his white count and lactate here were normal vital signs here have been stable stable blood pressures. Did start patient on sepsis bolus got blood cultures started him on IV antibiotics I spoke to hospitalist and will admit at this time Medical Records I reviewed the patient's medical records. Lab Data I reviewed the patient's lab results. 07/25/25 18:35 07/25/25 18:35 Radiology Impressions Chest X-Ray 07/25/25 18:43 IMPRESSION: 1. Interval appearance of small right pleural effusion with comparison made to 06/14/2025. 2. Otherwise clear lungs. Laboratory Results WBC 4.57 10^3/uL (3.29-11.43) 07/25/25 18:35 RBC 3.87 10^6/uL (3.85-5.65) 07/25/25 18:35 Hgb 12.20 g/dL (11.27-16.99) 07/25/25 18:35 Hct 38.3 % (37-53) 07/25/25 18:35 MCV 99.0 fl (82-101) 07/25/25 18:35 MCH 31.5 pg (27-33) 07/25/25 18:35 MCHC 31.9 g/dL (30-55) 07/25/25 18:35 RDW 15.4 % (12.1-15.1) H 07/25/25 18:35 Plt Count 35 10^3/cmm (157-399) L 07/25/25 18:35 MPV 11.7 fL (7.4-10.4) H 07/25/25 18:35 Neut % (Auto) 83.9 % 07/25/25 18:35 Lymph % (Auto) 9.2 % 07/25/25 18:35 [place] % (Auto) 5.7 % 07/25/25 18:35 Eos % (Auto) 0.4 % 07/25/25 18:35 Baso % (Auto) 0.4 % 07/25/25 18:35 Neut # (Auto) 3.83 10^3/uL (1.8-7.7) 07/25/25 18:35 Lymph # (Auto) 0.4 10^3/uL (0.8-4.8) L 07/25/25 18:35 [place] # (Auto) 0.3 10^3/uL (0.2-0.9) 07/25/25 18:35 Eos # (Auto) 0.0 10^3/uL (0.0-0.8) 07/25/25 18:35 Baso # (Auto) 0.0 10^3/uL (0.0-0.1) 07/25/25 18:35 Nucleated RBC % (auto) 0 % 07/25/25 18: Nucleated RBCs # 0.0 /100WBC 07/25/25 18:35 PT 16.70 SECONDS (12.1-14.9) H 07/25/25 18:35 INR 1.26 (0.8-1.2) H 07/25/25 18:35 Sodium 139 mmol/L (136-145) 07/25/25 18:35 Potassium 3.2 mmol/L (3.5-5.1) L 07/25/25 18:35 Chloride 114 mmol/L (98-107) H 07/25/25 18:35 Carbon Dioxide 15 mmol/L (22-29) L 07/25/25 18:35 Anion Gap 13.2 (5-19) 07/25/25 18:35 BUN 13 mg/dL (8-23) 07/25/25 18:35 Creatinine 0.5 mg/dL (0.7-1.2) L 07/25/25 18:35 GFR Calculation Not Reportable 07/25/25 18:35 Glucose 121 mg/dL (65-115) H 07/25/25 18:35 Calculated Osmolality 289 mOsm/kg (285-295) 07/25/25 18:35 Lactic Acid 1.1 mmol/L (0.5-2.2) 07/25/25 18:35 Calcium 6.6 mg/dL (8.5-10.5) L 07/25/25 18:35 Total Bilirubin 2.3 mg/dL (0.15-1.2) H 07/25/25 18:35 AST 25 U/L (0-40) 07/25/25 18:35 ALT 11 U/L (0-41) 07/25/25 18:35 Alkaline Phosphatase 74 U/L (40-130) 07/25/25 18:35 NT-Pro-B Natriuret Pep 462 pg/mL (0-125) H 07/25/25 18:35 Total Protein 4.7 g/dL (6.6-8.7) L 07/25/25 18:35 Albumin 2.9 g/dL (3.5-5.2) L 07/25/25 18:35 Globulin 1.8 g/dL (1.3-4.6) 07/25/25 18:35 Urine Color [place] (Yellow) A 07/25/25 19:56 Urine Appearance Clear (CLEAR) 07/25/25 19:56 Urine pH 5.0 (5-7) 07/25/25 19:56 Ur Specific [place] 1.022 (1.005-1.030) 07/25/25 19:56 Urine Protein 1+ (Negative) A 07/25/25 19:56 Urine Glucose (UA) Negative (Normal) 07/25/25 19:56 Urine Ketones Trace (Negative) 07/25/25 19:56 Urine Blood Negative (Negative) 07/25/25 19:56 Urine Nitrate Negative (Negative) 07/25/25 19:56 Urine Bilirubin 1+ (Negative) H 07/25/25 19:56 Urine Urobilinogen 1.0 mg/dL (Negative) 07/25/25 19:56 Ur Leukocyte Esterase 1+ (Negative) A 07/25/25 19:56 Urine RBC 0-2 /hpf (0-2) 07/25/25 19:56 Urine WBC 21-50 /hpf (0-5) H 07/25/25 19:56 Ur Squamous Epith Cells 0-5 /hpf (0-5) 07/25/25 19:56 Amorphous Sediment Not Reportable 07/25/25 19:56 Urine Bacteria None seen /hpf (NONE) 07/25/25 19:56 Hyaline Casts 0.81 /lpf 07/25/25 19:56 All radiology interpretation(s) finalized by discharge EKG Data EKG 1: I personally reviewed and interpreted this EKG as follows: EKG interpretation date: 07/25/25 EKG interpretation time: 18:50 Interpretation: nsr hr [address] elevation qrs 90 qtc 428 Discharge Plan Discharge Patient Disposition: Admitted As Inpatient Clinical Impression: Generalized weakness, Acute cystitis Condition: Stable Coding Level of Care Code ED Food Service Technician for Chg Benigno
[2025-07-25 19:37] LABS: Anion Gap 13.2 (5-19); Aspartate Amino Transferase 25 U/L (0-40); Potassium 3.2 mmol/L (3.5-5.1)
[2025-07-25 19:54] LABS: Lactic Sepsis W/Reflex 1.1 mmol/L (0.5-2.2)
[2025-07-25 20:14] LABS: Glucose Urine UA Negative (Normal); Nitrate Urine Negative (Negative); Specific Gravity, Urine 1.022 (1.005-1.030)
[2025-07-25 20:19] LABS: Add Urine Microscopic? YES
[2025-07-25] MEDS: cefTRIAXone 1,000 mg SDV 1000 MG IVP (20:40)
[2025-07-25 20:43] LABS: Respiratory Syncytial Virus Ce NEGATIVE (Negative); SARS-CoV-2 PCR NEGATIVE (Negative)
--- NOTE | 2025-07-25 21:19 | PM.HP ---
Providers/Chief Complaint Admitting Physician: Bety Clark DO Primary Care Provider: Faiza Carson MD Chief Complaint: SOB History of Present Illness Jeremy Melgar is a 70 year old male Medications/Allergies Home Medications ?Medication ?Instructions ?Recorded ?Confirmed ?Last Taken ?Type furosemide 40 mg tablet 40 mg PO DAILY 09/26/24 06/14/25 04/23/25 History nadolol 20 mg tablet 20 mg PO DAILY 09/26/24 06/14/25 04/23/25 History spironolactone 50 mg tablet 50 mg PO DAILY 09/26/24 06/14/25 04/23/25 History tamsulosin 0.4 mg capsule 0.4 mg PO DAILY 09/26/24 06/14/25 06/13/25 History trazodone 100 mg tablet 100 mg PO BEDTIME 09/26/24 06/14/25 06/13/25 History gabapentin 300 mg capsule 300 mg PO TID #90 caps 04/30/25 06/14/25 06/13/25 Rx multivitamin 1 tab PO DAILY #30 tabs 04/30/25 06/14/25 06/13/25 Rx diphenoxylate-atropine 2.5 1 tab PO BID PRN Diarrhea 06/14/25 06/14/25 Unknown History mg-0.025 mg tablet famotidine 20 mg tablet 20 mg PO BID@0500,1700 PRN Edema 06/14/25 06/14/25 Unknown History lactulose 10 gram/15 mL oral 15 g PO Q8H PRN Constipation 06/14/25 06/14/25 Unknown History solution rifaximin 550 mg tablet (Xifaxan) 550 mg PO BID 06/14/25 06/14/25 Unknown History lactulose 10 gram/15 mL oral 15 g (22.5 mL) PO DAILY #3,785 mL 06/18/25 Unknown Rx solution Allergies Allergy/AdvReac Type Severity Reaction Status Date / Time latex Allergy ADR-Itching Verified 06/04/25 11:24 morphine Allergy ADR-Anxiety Verified 06/04/25 11:24 PFSH Acute PFSH: Medical History (Updated 07/25/25 @ 20:32 by Meche Tirado MD) AMS (altered mental status) Non-alcoholic micronodular cirrhosis of liver Peripheral neuropathy Type 2 diabetes mellitus Monoclonal gammopathy of undetermined significance Social History Smoking and tobacco/nicotine status: never used tobacco/nicotine Vitals/I&O/Wt Last Vital Signs Temp 101.2 F H 07/25/25 19:14 Pulse 69 07/25/25 18:49 Resp 16 07/25/25 18:49 BP 130/57 07/25/25 20:30 Pulse Ox 95 07/25/25 20:30 O2 Del Method Room Air 07/25/25 18:49 Weight last 48 hrs Weight 107.955 kg Physical Exam Urinary Catheter Management: Ramey: Cath Placed During This Visit: yes Urinary Catheter Date of Insertion: 07/25/25 Urinary Catheter Time of Insertion: 19:57 Data 07/25/25 18:35 07/25/25 18:35 Micro: Microbiology 07/25/25 20:20 Blood Culture - Preliminary Blood SPECIMEN COLLECTED 07/25/25 20:17 Blood Culture - Preliminary Blood SPECIMEN COLLECTED A&P Assessment and plan 1. Acute cystitis: Plan: START OF MEDICAL REPORT Bety Clark D.O. Board Certified Internal Medicine Chief Complaint: Generalized weakness History of Present Illness: The patient is a 70-year-old male who present chief: Generalized weakness and a fall which she sustained on the day of July 25, 2025. The patient also has been having dyspnea on exertion. 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 The 48 hours leading up to his hospitalization he denies fever, rigors, nausea, vomiting, cough, wheeze, abdominal pain, myalgia, dysuria, chest pain, urinary frequency, urinary urgency, hematuria. The patient does state that he does have decreased urine output. He presents for further evaluation I have explained to the patient (if they are coherent, able to comprehend, and/or are communicative) and/or their family member(s), friend(s), guardian(s), and/or other individual(s) present on the patient?s behalf (if present) the patient?s current medical condition, the patient?s current plan of care, and I have answered all questions posed to me. Family History: Hypertension Physical Examination: General: -Alert. -No acute distress. -No dyspnea. -No tachypnea. Head: -Atraumatic. -Normocephalic. Eyes: -Pupils equally round and reactive to light and accommodation. -Extraocular muscles intact. Neurological: -Cranial nerves II-XII intact. Neck: -No jugular venous distention. -No thyromegaly. -No cervical lymphadenopathy. Heart: -Regular rate. -Regular rhythm. -No murmurs. -No gallops. -No rubs. Lungs: -No wheeze. -No rhonchi. -No rales. Abdomen: -Normal bowel sounds in all four quadrants. -No rebound. -No guarding. -No tenderness. ? Mild to moderate distention present Extremities: -2/4 pulse in all four extremities. -No clubbing. -No cyanosis. ? Nonpitting bilateral lower extremity edema -No calf tenderness present bilaterally. -Negative Rose?s sign bilaterally. Musculoskeletal: -5/5 bilateral upper extremity strength. -5/5 bilateral lower extremity strength. -Sensorium of bilateral upper extremities are equal and intact. -Sensorium of bilateral lower extremities are equal and diminished Additional Details / Additional Findings / Exceptions / Miscellaneous: Pertinent Laboratory Results / Pertinent Radiology Results / Pertinent Diagnostic Results / Pertinent Vital Signs: Blood pressure 130/58, heart rate 69, respiration 16, temperature 101.2?, 93% room air. Potassium 3.2, bicarbonate 15, calcium 7.6, total bilirubin 2.3, INR 1.3, platelet count 35,000 Social History: Caffeine: Coffee Tobacco: Never Alcohol: Denies Pets: Denies + Allergies: Morphine, latex Code Status: DNR, DNI Admission Date: 9:16 PM on July 25, 2025 Discharge Date: History of Present Illness / Hospital Course Summary: The patient is a 70-year-old male who present chief: Generalized weakness and a fall which she sustained on the day of July 25, 2025. The patient also has been having dyspnea on exertion. 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 The 48 hours leading up to his hospitalization he denies fever, rigors, nausea, vomiting, cough, wheeze, abdominal pain, myalgia, dysuria, chest pain, urinary frequency, urinary urgency, hematuria. The patient does state that he does have decreased urine output. He presents for further evaluation Surgical History: Colon resection ?2 for cancer, bilateral inguinal herniorrhaphy, bilateral knee arthroscopy, cholecystectomy Assessment / Plan + Medical History: Generalized weakness, likely due to urinary tract infection. He developed. OT eval. History of recurrent falls. PT eval. OT eval. Urinary tract infection. Blood culture ?2. Urine culture. Check PSA. Rocephin 2 g IV daily plus IV normal saline 100 ML?s per hour Short bowel syndrome Vivas with history of hepatic encephalopathy and history of portal hypertension. Check ammonia level. We will monitor LFTs periodically with CMP Depression BPH MGUS. Outpatient follow-up with hematology/oncology upon discharge as directed Diabetes. Will check fasting glucose to before meals and at bedtime and provide insulin sliding scale GERD Hypertension Neuropathy Hypocalcemia. We will monitor calcium level intermittently and supplemented as necessary History of colon cancer, status post colon resection ?2. Patient did not require chemotherapy or radiation therapy. Outpatient follow-up with gastroenterology upon discharge as directed Thrombocytopenia, chronic. We will monitor platelet count intermittently Coagulopathy. Will monitor PT/INR periodically Hypokalemia. We will monitor potassium level intermittently and supplemented as necessary Metabolic acidosis. We will monitor serum bicarbonate level intermittently. IV normal saline 100 ML?s per hour History of distal esophageal wall thickening. Outpatient follow-up with gastroenterology upon discharge DVT prophylaxis. Bilateral SCD Consultations: None Disposition: Anticipate discharge in 24-72 hours although the patient may require rehabilitation based on the recommendations of physical therapy/Occupational Therapy MGUS. Outpatient follow-up with hematology/oncology upon discharge as directed History of colon cancer, status post colon resection ?2. Patient did not require chemotherapy or radiation therapy. Outpatient follow-up with gastroenterology upon discharge as directed History of distal esophageal wall thickening. Outpatient follow-up with gastroenterology upon discharge + Discharge Diet: 2 g sodium, ADA Discharge Activity: Discharge Condition: Discharge Medications: Time Spent with Patient: Greater than 30 minutes. Bety Clark D.O. Board Certified Internal Medicine END OF MEDICAL REPORT PDMP PDMP Reviewed: Not Reviewed Attestations Medical Necessity Statement*: Anticipate discharge in 24-72 hours although the patient may require rehabilitation based on the recommendations of physical therapy/Occupational Therapy Coding Level of Care Code Acute Code for Chg Fwd Diagnoses Acute cystitis N30.00
[2025-07-25 21:35] LABS: Ammonia 44 umol/L (16-60)
[2025-07-25] MEDS: calcium gluconate 0.9% NaCL 1 GM/50 ML PREMIX IV (23:22)
[2025-07-26] VITALS (9 sets, daily range): BP systolic 92–138; BP diastolic 51–70; PULSE 55–62; RESP 16–18; TEMP 36.3–37.2; O2SAT 92–96
[2025-07-26 00:14] LABS: Ammonia 33 umol/L (16-60)
[2025-07-26] MEDS: calcium gluconate 0.9% NaCL 1 GM/50 ML PREMIX IV (00:43)
[2025-07-26 06:03] LABS: Hematocrit 32.9 % (37-53); Hemoglobin 10.70 g/dL (11.27-16.99); Mean Corpuscular HGB Conc 32.5 g/dL (30-55); Mean Corpuscular Hemoglobin 31.8 pg (27-33); Mean Corpuscular Volume 97.9 fl (82-101); Nucleated Red Blood Cells % 0 %; Red Blood Count 3.36 10^6/uL (3.85-5.65); White Blood Count 2.26 10^3/uL (3.29-11.43)
[2025-07-26 06:15] LABS: Alanine Aminotransferase 11 U/L (0-41); Albumin Level 3.4 g/dL (3.5-5.2); Alkaline Phosphatase 77 U/L (40-130); Anion Gap 14.3 (5-19); Aspartate Amino Transferase 21 U/L (0-40); Blood Urea Nitrogen 14 mg/dL (8-23); Calcium 8.3 mg/dL (8.5-10.5); Carbon Dioxide 18 mmol/L (22-29); Chloride 110 mmol/L (98-107); Globulin 1.5 g/dL (1.3-4.6); Glucose 91 mg/dL (65-115); Osmolality Calculated 286 mOsm/kg (285-295); Potassium 4.3 mmol/L (3.5-5.1); Sodium 138 mmol/L (136-145); Total Protein 4.9 g/dL (6.6-8.7)
[2025-07-26 07:39] LABS: Platelet Count 28 10^3/cmm (157-399)
--- NOTE | 2025-07-26 09:18 | P.PN_ITS ---
Subjective 2 Subjective: Patient is seen this morning in the medical floor. He is a 70-year-old male who was admitted yesterday with because he was feeling weak. He reports stumbling falling [place] pneumonia, and had remained severely weak yesterday. , He was brought into the ER. In the ER, he was thought to have a UTI, that was on IV Rocephin. Vitals/I&O/Wt Last Vital Signs Temp 98.0 F 07/26/25 04:00 Pulse 57 L 07/26/25 06:00 Resp 16 07/26/25 04:00 BP 108/54 07/26/25 04:48 Pulse Ox 92 07/26/25 04:00 O2 Del Method Room Air 07/26/25 04:00 07/25/25 07/26/25 07/26/25 22:59 06:59 14:59 Intake Total 2954 / 2954 975 / 975 Output Total 500 / 500 Balance 2454 / 2454 975 / 975 Weight last 48 hrs Weight 107.048 kg Weight 107.955 kg Weight 107.955 kg Weight 107.955 kg Physical Exam 2 Narrative: General: Awake and alert. Cooperative. Chest/Resp: Normal respiratory chest movts; no obvious respiratory distress. CVS: Regular heart rate and rhythm. GI: Subcut epigastric scar-feeling tissue felt. Non-distended; No obvious organomegaly. Extremities: No obvious pitting pedal edema. Skin: No obvious new rashes or new skin lesions. Urinary Catheter Management: Ramey: Cath Placed During This Visit: yes Reason for Continuing Indwelling Catheter: Acute Urinary Retention or Obstruction Urinary Catheter Date of Insertion: 07/25/25 Urinary Catheter Time of Insertion: 19:57 Data 07/26/25 05:13 07/26/25 05:13 Micro: Microbiology 07/25/25 20:20 Blood Culture - Preliminary Blood x2 SPECIMEN COLLECTED 07/25/25 Urine culture result: Still pending. Urine SPECIMEN COLLECTED A&P Assessment and plan 1. Acute UTI (urinary tract infection): Diagnosed primarily based on urinalysis result. Urine culture results still pending. Otherwise, resolving. 2. Dizziness and giddiness: With reported weakness. Currently resolved. 3. Short bowel syndrome: 4. Severe thrombocytopenia: Platelets today is 28,000/m. Patient acknowledges that his platelets usually run in the 20,000-30,000's. 5. Bradycardia: Stable. 6. Monoclonal gammopathy of undetermined significance: Noted in advancement. 7. Type 2 diabetes mellitus: Otherwise stable 8. Peripheral neuropathy: Stable Plan: Patient overall reports significant improvement in symptoms. Given concomitant history of MGUS, as well as a severe thrombocytopenia, I will wait a few more days to get a urine culture results before discharging. In the meantime, continue him on the ongoing IV Rocephin. Glue will stay away completely from any antiplatelets or anticoagulants, given his severe thrombocytopenia. Resume home medications, as adjusted, given reported history of chronic liver disease for which he takes lactulose and spironolactone. PDMP PDMP Reviewed: Not Reviewed Attestations 2 Medical Necessity Statement*: Patient admitted for apparent severe clinical condition, as outlined in the Assessment & Plan section above. Patient will need up to 2 midnight stay, estimated, at least, to adequately and appropriately treat and optimally control above-named clinical conditions,. Coding Level of Care Code 44693 Diagnoses Acute UTI (urinary tract infection) N39.0 Dizziness and giddiness R42 Short bowel syndrome K90.829 Severe thrombocytopenia D69.6 Bradycardia R00.1 Monoclonal gammopathy of undetermined significance D47.2 Type 2 diabetes mellitus E11.9 Peripheral neuropathy G62.9
--- NOTE | 2025-07-26 09:21 | PC.PHAR ---
Pt had on the phone and they both agreed pt is no longer taking Protonix 40mg daily from 06/24/25 and Xifaxan 550mg bid frp, 05/14/25. Removed from med list.
--- NOTE | 2025-07-26 09:29 | PC.SOCIAL ---
IMM Update pg 2 of IMM Updated and reviewed w/ patient. Copy provided and copy dated, initialed and placed in chart.
--- NOTE | 2025-07-26 09:36 | PC.SOCIAL ---
IMM Update pg 2 of IMM Updated and reviewed w/ patient. Copy provided and copy dated, initialed and placed in chart.
[2025-07-26] MEDS: lactulose oral liq 20 gm/30 mL UDC 15 GM PO (22:13)
[2025-07-26] MEDS: cefTRIAXone 2,000 mg SDV 2000 MG IVP (22:13)
[2025-07-27] MEDS: MELATONIN 3 MG TABLET 6 MG PO (00:10)
[2025-07-27 04:00] VITALS: BP 130/72; PULSE 68; RESP 16; TEMP 36.5; O2SAT 94
[2025-07-27 06:00] VITALS: PULSE 68
[2025-07-27 07:53] VITALS: BP 143/83; PULSE 55; RESP 18; TEMP 36.6; O2SAT 95
--- NOTE | 2025-07-27 12:00 | PC.CHAP ---
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 [] Patient/Family/Request visit [] Outpatient visit [] Follow-up visit [] Physician referral [] Code/Alert [] Routine visit [] Staff referral [] Actively dying [] Patient sleeping [] Family support [] [] Out of room [] Palliative care [] [] Receiving care in room [] Pre-surgical visit [] Trauma [] Long length of stay [] ICU visit [] Other: Relational/Emotional Strength [] Patient feels connected with others/family/visitors/staff [] Distress [] Loneliness/isolation [] Abandonment Spirituality of Patient [] Person of Ifeoma [] Attends Scientology of their Ifeoma [] Believes in Prayer [] Reads Bible or Zoroastrianism materials [] There are Spiritual issues to be addressed Hospice Clinical Marketer Interventions [] Prayer [] Active listening [] Non-anxious presence [] Spiritual/emotional support [] Crisis/trauma care [] Spiritual counseling [] Bereavement support [] Provided bereavement packet [] Provided Bible/devotional materials [] Provided toy/stuffed animal, coloring book to patient or family member [] Provided Communion [] Anointing/[place] [] Salvation [] Completed spiritual assessment [] Other: Impact on Illness or Injury [] Angry [] Fearful [] Anxious [] Often cries [] Exhaustion [] Unable to work [] Unable to attend mormonism [] Unable to walk/stand [] Unable to read [] Unable to drive [] Unable to eat/drink [] Unable to sleep [] Unable to be with family [] Patient intubated [] Other: Summary Time spent with patient
[2025-07-27 12:47] VITALS: BP 116/65; PULSE 62; RESP 17; TEMP 36.8; O2SAT 95
[2025-07-27 13:37] LABS: Hematocrit 35.3 % (37-53); Hemoglobin 11.50 g/dL (11.27-16.99); Mean Corpuscular HGB Conc 32.6 g/dL (30-55); Mean Corpuscular Hemoglobin 31.6 pg (27-33); Mean Corpuscular Volume 97.0 fl (82-101); Nucleated Red Blood Cells % 0 %; Platelet Count 36 10^3/cmm (157-399); Red Blood Count 3.64 10^6/uL (3.85-5.65); White Blood Count 1.88 10^3/uL (3.29-11.43)
[2025-07-27 13:57] LABS: Anion Gap 14.0 (5-19); Blood Urea Nitrogen 14 mg/dL (8-23); Calcium 8.6 mg/dL (8.5-10.5); Carbon Dioxide 20 mmol/L (22-29); Chloride 109 mmol/L (98-107); Glucose 149 mg/dL (65-115); Osmolality Calculated 291 mOsm/kg (285-295); Potassium 4.0 mmol/L (3.5-5.1); Sodium 139 mmol/L (136-145)
--- NOTE | 2025-07-27 14:39 | P.DS_ITS ---
Discharge Providers Date of Admission: 07/26/25 15:54 Date of Discharge: July 27, 2025 Attending Provider at Admission: Bety Clark DO Attending Provider at Discharge: Srinivas Chau MD Primary Care Provider: Faiza Carson MD Diagnoses at Discharge Discharge Diagnosis 1. Acute UTI (urinary tract infection): 2. Dizziness and giddiness: 3. Short bowel syndrome: 4. Severe thrombocytopenia: 5. Bradycardia: 6. Monoclonal gammopathy of undetermined significance: 7. Type 2 diabetes mellitus: 8. Peripheral neuropathy: Reason for Visit Reason for Visit: Generalized weakness Brief History: Patient presented to the ER with complaint of generalized weakness. Given positive findings on urine analysis, UTI was suspected. IV Rocephin was started, while patient was admitted and monitored closely. Hospital Course Hospital Course All other concomitant symptoms were treated empirically. The active chronic medical problems were treated with home medications, as adjusted. Urine culture grew some sub-disgnostic gram-negative rods. However, given good response, so to speak, to Rocephin, patient therefore discharged today on oral cephalexin. Overall, patient responded well to treatment, and therefore deemed fit for discharge today. See my discharge orders and discharge instructions for more details. Physical Exam Narrative: General: Awake and alert patient. Resp: No obvious respiratory distress or difficulty breathing. Skin: No obvious rashes or new skin lesions. All other physical findings essentially within normal limits. Urinary Catheter Management: Ramey: Cath Placed During This Visit: yes, but has since been removed by the nurse Reason for Continuing Indwelling Catheter: Decision to DC Catheter Urinary Catheter Date of Insertion: 07/25/25 Urinary Catheter Time of Insertion: 19:57 Date Urinary Catheter Removed: 07/27/25 Time Urinary Catheter Discontinued: 09:20 Discharge Data Studies Completed and Pending Completed Studies During Hospitalization Category Date Time Status XR chest 1V portable [id number] Stat Exams 07/25/25 18:43 Completed Pending at discharge Category Date Time Status Blood Culture Stat Lab 07/25/25 20:20 Results Urine Culture Stat Lab 07/25/25 19:56 Results Radiology Impressions Chest X-Ray 07/25/25 18:43 IMPRESSION: Interval appearance of small right pleural effusion with comparison made to 06/14/2025. Otherwise clear lungs. Laboratory Results WBC decreased from 4.57 to1.88 Platelets ranged from 28 to36 Other than findings essentially within normal limits, otherwise clinically insignificant. Urine Culture Preliminary 07/27/25-1022 Organism 1 Gram Negative Rods Antelope Count 30,000 - 40,000 CFU/ml Vitals Last Vital Signs Temp 98.2 F 07/27/25 12:47 Pulse 62 07/27/25 12:47 Resp 17 07/27/25 12:47 BP 116/65 07/27/25 12:47 Pulse Ox 95 07/27/25 12:47 O2 Del Method Room Air 07/27/25 12:47 Discharge Plan Discharge Patient Disposition: Home Health Service Condition: Stable Prescriptions: New zolpidem [Ambien] 5 mg tablet 5 mg PO .nightly PRN (Reason: insomnia) Qty: 30 0RF cephalexin 500 mg capsule 500 mg PO Q8H 7 Days Qty: 21 0RF Continued furosemide 40 mg tablet 40 mg PO DAILY nadolol 20 mg tablet 20 mg PO DAILY spironolactone 50 mg tablet 50 mg PO DAILY PRN (Reason: Edema) tamsulosin 0.4 mg capsule 0.4 mg PO DAILY gabapentin 300 mg capsule 300 mg PO TID Qty: 90 0RF multivitamin Tablet 1 tab PO DAILY Qty: 30 0RF diphenoxylate-atropine 2.5-0.025 mg tablet 1 tab PO BID PRN (Reason: Diarrhea) famotidine 20 mg tablet 20 mg PO BID@0500,1700 PRN (Reason: Indigestion) lactulose 10 gram/15 mL solution 15 g PO Q8H PRN (Reason: Constipation) Changed trazodone 100 mg tablet 50 mg PO BEDTIME Qty: 30 0RF Discharge Order = DC NOW: Discharge Order (Routine); Ordered 07/27/25 Ordered By: Srinivas Chau Referrals: Faiza Carson MD [Primary Care Provider, Internal Medicine] Referral Note: We have notified your physician's clinic of the need for a follow-up appointment to be scheduled. If you have not heard from them within the next 2 business days, please call them directly. Discharge Diet: Usual diet Discharge Activity: Resume usual activity and Increase activity as tolerated Patient Instructions: Cephalexin (By mouth), Zolpidem (By mouth), Urinary Tract Infection in Men (DC), Thrombocytopenia (DC), Opioid Safety, Patient Portal & Mirza Instructions Activity Restrictions/Additional Instructions: Follow-up with your primary care provider within the next 1 to 2 weeks. May return to the ER if symptoms worsen, and if is an emergency. Discharge Attestations Time Spent in Discharge Care*: less than 30 min Status at Discharge: Cognitive status at discharge: cognitively intact , Behavioral status at discharge: cooperative , Quality Metrics Clinical Quality Measures [ No reported AMI, CVA or VTE this stay] Coding Level of Care Code Acute Code for Chg Fwd Diagnoses Acute UTI (urinary tract infection) N39.0 Dizziness and giddiness R42 Short bowel syndrome K90.829 Severe thrombocytopenia D69.6 Bradycardia R00.1 Monoclonal gammopathy of undetermined significance D47.2 Type 2 diabetes mellitus E11.9 Peripheral neuropathy G62.9
[2025-07-27 15:38] VITALS: BP 116/65; PULSE 62; RESP 17; TEMP 36.8; O2SAT 95
--- NOTE | 2025-07-27 15:39 | PC.NURSE ---
This nurse spoke with Dr. Chau due to patient's medications being sent to [facility] and asked for medications to be switched to [facility]. Dr. Chau stated he would switch medications over. Discharge paperwork discussed with patient and spouse. All questions were answered. IV line was removed. Patient taken to entrance via wheelchair, spouse with all belongings. Patient left facility at 1540.
== END 2025-07-27 15:40 | disposition home health service (06) ==
LOC: ER 20:37 → MEDSURG 21:28
PROVIDERS: Admitting Provider Internal Medicine; Emergency Provider Emergency Medicine; PCP Internal Medicine; Visit Provider Family Medicine
DX: N39.0 Urinary tract infection, site not specified (principal); R42 Dizziness and giddiness; K90.829 Short bowel syndrome, unspecified; D69.6 Thrombocytopenia, unspecified; R00.1 Bradycardia, unspecified; D47.2 Monoclonal gammopathy; E11.9 Type 2 diabetes mellitus without complications; G62.9 Polyneuropathy, unspecified; Z66 Do not resuscitate
CPT/HCPCS: 36415; 36416; 51702; 71045; 80048; 80053; 81001; 82140; 82962; 83605; 83880; 85025; 85610; 87040; 87077; 87086; 87186; 87637; 93005; 96365; 96372; 96375; 97116; 97161; 97165; 97530; 99285; G0103; G0378; J0456; J0612; J0696; J1815; J7030; J7050; J9999

== ENCOUNTER 2025-08-12 12:39 | Oncology outpatient (recurring) (ONCR) | payer MEDICARE, SELFPAY ==
[2025-08-05 11:54] LABS: Hematocrit 39.8 % (37-53); Hemoglobin 13.10 g/dL (11.27-16.99); Mean Corpuscular HGB Conc 32.9 g/dL (30-55); Mean Corpuscular Hemoglobin 31.6 pg (27-33); Mean Corpuscular Volume 96.1 fl (82-101); Nucleated Red Blood Cells % 0 %; Platelet Count 41 10^3/cmm (157-399); Red Blood Count 4.14 10^6/uL (3.85-5.65); White Blood Count 1.90 10^3/uL (3.29-11.43)
[2025-08-05 12:12] LABS: Alanine Aminotransferase 13 U/L (0-41); Albumin Level 3.9 g/dL (3.5-5.2); Alkaline Phosphatase 95 U/L (40-130); Anion Gap 12.5 (5-19); Aspartate Amino Transferase 26 U/L (0-40); Blood Urea Nitrogen 14 mg/dL (8-23); Calcium 9.0 mg/dL (8.5-10.5); Carbon Dioxide 24 mmol/L (22-29); Chloride 106 mmol/L (98-107); Globulin 2.6 g/dL (1.3-4.6); Glucose 118 mg/dL (65-115); Iron 83 ug/dL (59-158); Osmolality Calculated 288 mOsm/kg (285-295); Potassium 4.5 mmol/L (3.5-5.1); Sodium 138 mmol/L (136-145); Total Iron Binding Capacity 275 mcg/dl; Total Protein 6.5 g/dL (6.6-8.7); Unsaturated Iron Binding 192 ug/dL (112-347)
[2025-08-07 15:34] LABS: KAPPA LIGHT CHAIN, FREE, SERUM 20.9 mg/L (3.3-19.4); KAPPA/LAMBDA LIGHT CHAINS FREE 0.05 (0.26-1.65); LAMBDA LIGHT CHAIN, FREE, SERU 408.0 mg/L (5.7-26.3)
== END 2025-09-04 23:59 | disposition home or self-care (01) ==
PROVIDERS: PCP Internal Medicine; Visit Provider Internal Medicine Medical Oncology
DX: D47.2 Monoclonal gammopathy (principal); D70.9 Neutropenia, unspecified; D69.6 Thrombocytopenia, unspecified; K74.60 Unspecified cirrhosis of liver; R16.1 Splenomegaly, not elsewhere classified
CPT/HCPCS: 36415; 80053; 83540; 83550; 83883; 85025; 86334; 99213

== ENCOUNTER → 2025-08-21 10:54 | Outpatient (BNVA) | payer MEDICARE, SELFPAY | PROVIDERS: PCP Internal Medicine; Visit Provider Podiatrist Foot & Ankle Surgery | DX: E11.42 Type 2 diabetes mellitus with diabetic polyneuropathy (principal); L60.3 Nail dystrophy; L60.8 Other nail disorders; M20.42 Other hammer toe(s) (acquired), left foot; G62.9 Polyneuropathy, unspecified; M20.30 Hallux varus (acquired), unspecified foot | CPT/HCPCS: 11721 ==